=== PATIENT | male | born 1935 | race Caucasian/White ===

== ENCOUNTER 2018-09-13 16:33 | Inpatient (IN) | payer MEDICARE ==
[2018-09-13] MEDS ORDERED: FUROSEMIDE 10 MG/ML 4 ML VIAL IV STA (16:55)
[2018-09-13] MEDS ORDERED: IPRATROPIUM-ALBUTEROL 3 ML NEB INHALATION STA (16:55)
--- NOTE | 2018-09-13 17:00 | ED ---
SOB HPI - General Chief Complaint: Shortness of Breath Stated Complaint: SOB/leg swelling Time Seen by Provider: 09/13/18 16:45 Source: patient, RN notes reviewed Mode of arrival: wheelchair Limitations: no limitations - History of Present Illness Initial Comments: This is a 82-year-old male with a history of CHF who states she's had progressively worsening shortness of breath and exertional dyspnea over last 3 days. No overt chest pain fevers chills nausea vomiting sweats or other symptoms he has had increased peripheral edema to both lower extremities also. 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 MD Complaint: shortness of breath - Related Data Home Medications Medication Instructions Recorded Confirmed Clopidogrel Bisulfate [Clopidogrel] 75 mg PO DAILY 03/03/14 09/13/18 Furosemide 40 mg PO BID 03/03/14 09/13/18 Insulin NPL/Insulin Lispro 25 units SQ AC-SUPPER 03/03/14 09/13/18 [humaLOG MIX 75-25 VIAL] Insulin NPL/Insulin Lispro 30 unit SQ AC-BRKFST 03/03/14 09/13/18 [humaLOG MIX 75-25 VIAL] Lisinopril 20 mg PO BID 03/03/14 09/13/18 amLODIPine 5 mg PO BID 03/03/14 09/13/18 metFORMIN HCL [Glucophage] 500 mg PO BID 03/03/14 09/13/18 Atorvastatin [Lipitor] 40 mg PO DAILY 09/13/18 09/13/18 INSULIN LISPRO (humaLOG) [humaLOG] 0 units SQ ACHS 09/13/18 09/13/18 Metoprolol Tartrate [Lopressor] 100 mg PO DAILY 09/13/18 09/13/18 [place]-3 Fatty Acids/Fish Oil [Fish 1,000 mg PO DAILY 09/13/18 09/13/18 Oil 1,000 mg Softgel] Previous Rx's Medication Instructions Recorded Aspirin EC [Ecotrin] 325 mg PO DAILY #30 tablet. 03/06/14 Multivitamins, Thera [Multivitamin 1 each PO DAILY@1200 #30 tab 03/06/14 (formulary)] Allergies Allergy/AdvReac Type Severity Reaction Status Date / Time Sulfa (Sulfonamide Allergy Unknown Verified 09/13/18 17:16 Antibiotics) Review of Systems ROS Statement: Those systems with pertinent positive or pertinent negative responses have been documented in the HPI. ROS Other: All systems not noted in ROS Statement are negative. 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 Last Myocardial Infarction Date:: 2011 History of Any Multi-Drug Resistant Organisms: None Reported Past Surgical History: Coronary Bypass/CABG, Heart Catheterization Past Anesthesia/Blood Transfusion Reactions: No Reported Reaction Past Psychological History: No Psychological Hx Reported Smoking Status: Former smoker Past Alcohol Use History: None Reported Past Drug Use History: None Reported - Past Family History Mother Family Medical History: Cancer Additional Family Medical History / Comment(s): of ovarian Cancer General Exam - General Exam Comments Initial Comments: This is a well-developed well-nourished awake alert oriented times 3 male Limitations: no limitations General appearance: alert, anxious, in distress Head exam: Present: atraumatic, normocephalic, normal inspection Eye exam: Present: normal appearance, PERRL, EOMI. Absent: scleral icterus, conjunctival injection, periorbital swelling ENT exam: Present: normal exam, mucous membranes moist Neck exam: Present: normal inspection. Absent: tenderness, meningismus, lymphadenopathy Respiratory exam: Present: rales, decreased breath sounds. Absent: respiratory distress, wheezes, rhonchi, stridor Cardiovascular Exam: Present: regular rate, normal rhythm, normal heart sounds. Absent: systolic murmur, diastolic murmur, rubs, gallop, clicks GI/Abdominal exam: Present: soft, normal bowel sounds, other (Obese abdomen). Absent: distended, tenderness, guarding, rebound, rigid Extremities exam: Present: full ROM, normal capillary refill, pedal edema, other (Evidence of stasis changes). Absent: tenderness, joint swelling, calf tenderness Back exam: Present: normal inspection Neurological exam: Present: alert, oriented X3, CN II-XII intact, motor sensory deficit (Right-sided headache leave degenerative the upper extremity and hemiparesis to the right lower extremity.) Psychiatric exam: Present: normal affect, normal mood Skin exam: Present: warm, dry, intact, normal color. Absent: rash Course Vital Signs 09/13/18 09/13/18 09/13/18 16:37 17:18 17:27 Temperature 98.5 F Pulse Rate 59 L 56 L 56 L Respiratory 18 Rate Blood Pressure 159/79 O2 Sat by Pulse 89 L Oximetry - Reevaluation(s) Reevaluation #1: 09/13/18 19:19 I did reevaluate patient several occasions he has no improvement thus far and is breathing he still has marked exertional dyspnea. He reports no chest pain. Reevaluation #2: 09/13/18 19:20 Cardiac monitoring: traffic monitor specialist indication history of atrial fibrillation with evidence of congestive failure to rule out dysrhythmia. Patient does demonstrate atrial fibrillation which is known to him. No PVCs noted. Medical Decision Making - Lab Data Result diagrams: 09/13/18 17:40 09/13/18 17:40 Lab Results 09/13/18 09/13/18 09/13/18 Range/Units 17:40 17:40 17:40 WBC 10.8 H (3.8-10.6) k/uL RBC 6.15 H (4.30-5.90) m/uL Hgb 17.6 H (13.0-17.5) gm/dL Hct 52.8 (39.0-53.0) % MCV 85.8 (80.0-100.0) fL MCH 28.6 (25.0-35.0) pg MCHC 33.4 (31.0-37.0) g/dL RDW 15.5 (11.5-15.5) % Plt Count 261 (150-450) k/uL Neutrophils % 66 % Lymphocytes % 23 % Monocytes % 7 % Eosinophils % 2 % Basophils % 1 % Neutrophils # 7.1 (1.3-7.7) k/uL Lymphocytes # 2.5 (1.0-4.8) k/uL Monocytes # 0.8 (0-1.0) k/uL Eosinophils # 0.2 (0-0.7) k/uL Basophils # 0.1 (0-0.2) k/uL PT 10.3 (9.0-12.0) sec INR 1.0 (<1.2) APTT 23.6 (22.0-30.0) sec Sodium 138 (137-145) mmol/L Potassium 4.8 (3.5-5.1) mmol/L Chloride 100 (98-107) mmol/L Carbon Dioxide 28 (22-30) mmol/L Anion Gap 10 mmol/L BUN 34 H (9-20) mg/dL Creatinine 1.52 H (0.66-1.25) mg/dL Est GFR (CKD-EPI)AfAm 50 (>60 ml/min/1.73 sqM) Est GFR (CKD-EPI)NonAf 43 (>60 ml/min/1.73 sqM) Glucose 252 H (74-99) mg/dL Calcium 9.0 (8.4-10.2) mg/dL Magnesium 2.0 (1.6-2.3) mg/dL Total Bilirubin 0.7 (0.2-1.3) mg/dL AST 15 L (17-59) U/L ALT 30 (21-72) U/L Alkaline Phosphatase 56 (38-126) U/L Troponin I (0.000-0.034) ng/mL NT-Pro-B Natriuret Pep pg/mL Total Protein 6.9 (6.3-8.2) g/dL Albumin 3.8 (3.5-5.0) g/dL 09/13/18 09/13/18 Range/Units 17:40 17:40 WBC (3.8-10.6) k/uL RBC (4.30-5.90) m/uL Hgb (13.0-17.5) gm/dL Hct (39.0-53.0) % MCV (80.0-100.0) fL MCH (25.0-35.0) pg MCHC (31.0-37.0) g/dL RDW (11.5-15.5) % Plt Count (150-450) k/uL Neutrophils % % Lymphocytes % % Monocytes % % Eosinophils % % Basophils % % Neutrophils # (1.3-7.7) k/uL Lymphocytes # (1.0-4.8) k/uL Monocytes # (0-1.0) k/uL Eosinophils # (0-0.7) k/uL Basophils # (0-0.2) k/uL PT (9.0-12.0) sec INR (<1.2) APTT (22.0-30.0) sec Sodium (137-145) mmol/L Potassium (3.5-5.1) mmol/L Chloride (98-107) mmol/L Carbon Dioxide (22-30) mmol/L Anion Gap mmol/L BUN (9-20) mg/dL Creatinine (0.66-1.25) mg/dL Est GFR (CKD-EPI)AfAm (>60 ml/min/1.73 sqM) Est GFR (CKD-EPI)NonAf (>60 ml/min/1.73 sqM) Glucose (74-99) mg/dL Calcium (8.4-10.2) mg/dL Magnesium (1.6-2.3) mg/dL Total Bilirubin (0.2-1.3) mg/dL AST (17-59) U/L ALT (21-72) U/L Alkaline Phosphatase (38-126) U/L Troponin I <0.012 (0.000-0.034) ng/mL NT-Pro-B Natriuret Pep 2950 pg/mL Total Protein (6.3-8.2) g/dL Albumin (3.5-5.0) g/dL - EKG Data -: EKG Interpreted by Me (Atrial fibrillation rate of 62 QRS 146 QT since QTC 470/45) bundle-branch b) - Radiology Data Radiology results: report reviewed (Review the imaging shows evidence of congestive failure with increased pulmonary vascular markings.), image reviewed Critical Care Time Critical Care Time: Yes Critical Care Time: 33 minutes of critical care time which includes initial presentation with history physical labs x-rays multiple reevaluation patient responsive therapy. Discussed with patient family regarding findings discussion with the admitting physician Dr. Feliciano admission orders documentation of the above. Disposition Clinical Impression: Pulmonary edema cardiac cause, Hypoxemia, Renal insufficiency syndrome, Chronic atrial fibrillation Disposition: ADMITTED IP TO THIS [facility] Condition: Fair Referrals: Carlos Alberto Feliciano MD [Primary Care Provider] - 1-2 days
[2018-09-13 18:12] LABS: Albumin 3.8 g/dL (3.5-5.0); Potassium 4.8 mmol/L (3.5-5.1); Total Bilirubin 0.7 mg/dL (0.2-1.3); Total Protein 6.9 g/dL (6.3-8.2)
[2018-09-13 18:20] LABS: Partial Thromboplastin Time 23.6 sec (22.0-30.0); Prothrombin Time 10.3 sec (9.0-12.0)
--- NOTE | 2018-09-13 18:22 | XR ---
EXAMINATION TYPE: XR chest 2V DATE OF EXAM: 09/13/2018 COMPARISON: 03/03/2014 HISTORY: Difficulty breathing TECHNIQUE: Frontal and lateral views of the chest are obtained. FINDINGS: There are sternal wires. There is blunting of the costophrenic angles. There are chest candice ds. Thoracic aorta is atheromatous. There is mild pulmonary congestion. IMPRESSION: There is evidence of new mild heart failure compared to old exam. Bilateral basilar atel ectasis and pleural fluid.
[2018-09-13 19:02] LABS: Basophils # (A) 0.1 k/uL (0-0.2); Basophils % (A) 1 %; Eosinophils # (A) 0.2 k/uL (0-0.7); Eosinophils % (A) 2 %; HCT 52.8 % (39.0-53.0); HGB 17.6 gm/dL (13.0-17.5); Lymphocytes # (A) 2.5 k/uL (1.0-4.8); Lymphocytes % (A) 23 %; MCH 28.6 pg (25.0-35.0); MCHC 33.4 g/dL (31.0-37.0); MCV 85.8 fL (80.0-100.0); Mean Platelet Volume 7.9; Monocytes # (A) 0.8 k/uL (0-1.0); Monocytes % (A) 7 %; Neutrophils # (A) 7.1 k/uL (1.3-7.7); Neutrophils % (A) 66 %; Platelet Count 261 k/uL (150-450); RBC 6.15 m/uL (4.30-5.90); RDW 15.5 % (11.5-15.5); WBC 10.8 k/uL (3.8-10.6)
--- NOTE | 2018-09-13 19:27 | ED ---
Medical Decision Making - Lab Data Result diagrams: 09/13/18 17:40 09/13/18 17:40 Lab Results 09/13/18 09/13/18 09/13/18 Range/Units 17:40 17:40 17:40 WBC 10.8 H (3.8-10.6) k/uL RBC 6.15 H (4.30-5.90) m/uL Hgb 17.6 H (13.0-17.5) gm/dL Hct 52.8 (39.0-53.0) % MCV 85.8 (80.0-100.0) fL MCH 28.6 (25.0-35.0) pg MCHC 33.4 (31.0-37.0) g/dL RDW 15.5 (11.5-15.5) % Plt Count 261 (150-450) k/uL Neutrophils % 66 % Lymphocytes % 23 % Monocytes % 7 % Eosinophils % 2 % Basophils % 1 % Neutrophils # 7.1 (1.3-7.7) k/uL Lymphocytes # 2.5 (1.0-4.8) k/uL Monocytes # 0.8 (0-1.0) k/uL Eosinophils # 0.2 (0-0.7) k/uL Basophils # 0.1 (0-0.2) k/uL PT 10.3 (9.0-12.0) sec INR 1.0 (<1.2) APTT 23.6 (22.0-30.0) sec Sodium 138 (137-145) mmol/L Potassium 4.8 (3.5-5.1) mmol/L Chloride 100 (98-107) mmol/L Carbon Dioxide 28 (22-30) mmol/L Anion Gap 10 mmol/L BUN 34 H (9-20) mg/dL Creatinine 1.52 H (0.66-1.25) mg/dL Est GFR (CKD-EPI)AfAm 50 (>60 ml/min/1.73 sqM) Est GFR (CKD-EPI)NonAf 43 (>60 ml/min/1.73 sqM) Glucose 252 H (74-99) mg/dL Calcium 9.0 (8.4-10.2) mg/dL Magnesium 2.0 (1.6-2.3) mg/dL Total Bilirubin 0.7 (0.2-1.3) mg/dL AST 15 L (17-59) U/L ALT 30 (21-72) U/L Alkaline Phosphatase 56 (38-126) U/L Troponin I (0.000-0.034) ng/mL NT-Pro-B Natriuret Pep pg/mL Total Protein 6.9 (6.3-8.2) g/dL Albumin 3.8 (3.5-5.0) g/dL 09/13/18 09/13/18 Range/Units 17:40 17:40 WBC (3.8-10.6) k/uL RBC (4.30-5.90) m/uL Hgb (13.0-17.5) gm/dL Hct (39.0-53.0) % MCV (80.0-100.0) fL MCH (25.0-35.0) pg MCHC (31.0-37.0) g/dL RDW (11.5-15.5) % Plt Count (150-450) k/uL Neutrophils % % Lymphocytes % % Monocytes % % Eosinophils % % Basophils % % Neutrophils # (1.3-7.7) k/uL Lymphocytes # (1.0-4.8) k/uL Monocytes # (0-1.0) k/uL Eosinophils # (0-0.7) k/uL Basophils # (0-0.2) k/uL PT (9.0-12.0) sec INR (<1.2) APTT (22.0-30.0) sec Sodium (137-145) mmol/L Potassium (3.5-5.1) mmol/L Chloride (98-107) mmol/L Carbon Dioxide (22-30) mmol/L Anion Gap mmol/L BUN (9-20) mg/dL Creatinine (0.66-1.25) mg/dL Est GFR (CKD-EPI)AfAm (>60 ml/min/1.73 sqM) Est GFR (CKD-EPI)NonAf (>60 ml/min/1.73 sqM) Glucose (74-99) mg/dL Calcium (8.4-10.2) mg/dL Magnesium (1.6-2.3) mg/dL Total Bilirubin (0.2-1.3) mg/dL AST (17-59) U/L ALT (21-72) U/L Alkaline Phosphatase (38-126) U/L Troponin I <0.012 (0.000-0.034) ng/mL NT-Pro-B Natriuret Pep 2950 pg/mL Total Protein (6.3-8.2) g/dL Albumin (3.5-5.0) g/dL Disposition Clinical Impression: Pulmonary edema cardiac cause, Hypoxemia, Renal insufficiency syndrome, Chronic atrial fibrillation, Acute bronchospasm Disposition: ADMITTED IP TO THIS HOSP Condition: Fair Referrals: Carlos Alberto Feliciano MD [Primary Care Provider] - 1-2 days
[2018-09-13] MEDS: FUROSEMIDE 10 MG/ML 4 ML VIAL IV SCH (19:39)
[2018-09-13] MEDS ORDERED: IPRATROPIUM-ALBUTEROL 3 ML NEB INHALATION SCH (20:00)
[2018-09-13] MEDS ORDERED: FUROSEMIDE 40 MG TAB PO SCH (21:00)
[2018-09-13] MEDS: IPRATROPIUM-ALBUTEROL 3 ML NEB INHALATION SCH (22:12)
[2018-09-13] MEDS ORDERED: IPRATROPIUM-ALBUTEROL 3 ML NEB INHALATION PRN (22:13)
[2018-09-13] MEDS: LISINOPRIL 20 MG TAB PO SCH (22:34)
[2018-09-13] MEDS: amLODIPine 5 MG TAB PO SCH (22:34)
[2018-09-13] MEDS: INSULIN ASPART (NovoLOG) 100 UNIT/ML VIAL SQ SCH (22:57)
[2018-09-13 23:03] LABS: Glucose,Whole Blood 178 mg/dL (75-99)
[2018-09-14] MEDS ORDERED: HEPARIN SODIUM,PORCINE 5,000 UNIT/ML 1 ML VIAL IV PRN (01:00)
[2018-09-14] MEDS ORDERED: HEPARIN SODIUM,PORCINE 5,000 UNIT/ML 1 ML VIAL IV ONE (01:00)
[2018-09-14 01:33] LABS: Basophils % (A) 0 %; Eosinophils # (A) 0.1 k/uL (0-0.7); Eosinophils % (A) 1 %; HCT 45.4 % (39.0-53.0); Lymphocytes # (A) 1.9 k/uL (1.0-4.8); Lymphocytes % (A) 20 %; MCH 27.1 pg (25.0-35.0); MCHC 31.2 g/dL (31.0-37.0); MCV 86.8 fL (80.0-100.0); Mean Platelet Volume 7.5; Monocytes # (A) 0.6 k/uL (0-1.0); Monocytes % (A) 6 %; Neutrophils # (A) 6.9 k/uL (1.3-7.7); Neutrophils % (A) 72 %; Platelet Count 212 k/uL (150-450); RBC 5.23 m/uL (4.30-5.90); RDW 14.8 % (11.5-15.5); WBC 9.6 k/uL (3.8-10.6)
[2018-09-14 01:35] LABS: HGB 14.1 gm/dL (13.0-17.5)
[2018-09-14 01:42] LABS: Partial Thromboplastin Time 23.9 sec (22.0-30.0); Prothrombin Time 10.4 sec (9.0-12.0)
[2018-09-14] MEDS: HEPARIN SOD,PORK IN 0.45% NACL 25,000 UNIT in 0.45% NACL 1 250ML.BAG IV SCH (02:05)
[2018-09-14 05:58] LABS: Glucose,Whole Blood 184 mg/dL (75-99)
[2018-09-14] MEDS: FUROSEMIDE 10 MG/ML 4 ML VIAL IV SCH ×2 (06:38→20:36)
[2018-09-14] MEDS: INSULIN ASPART (NovoLOG) 100 UNIT/ML VIAL SQ SCH ×4 (06:38→20:31)
[2018-09-14 06:53] LABS: Basophils % (A) 0 %; Eosinophils # (A) 0.1 k/uL (0-0.7); Eosinophils % (A) 1 %; HGB 13.9 gm/dL (13.0-17.5); Lymphocytes # (A) 2.2 k/uL (1.0-4.8); Lymphocytes % (A) 22 %; MCH 27.5 pg (25.0-35.0); MCHC 31.6 g/dL (31.0-37.0); MCV 86.9 fL (80.0-100.0); Mean Platelet Volume 7.7; Monocytes # (A) 0.7 k/uL (0-1.0); Monocytes % (A) 7 %; Neutrophils # (A) 6.7 k/uL (1.3-7.7); Neutrophils % (A) 67 %; Platelet Count 189 k/uL (150-450); RBC 5.07 m/uL (4.30-5.90); RDW 14.8 % (11.5-15.5)
[2018-09-14 07:11] LABS: Partial Thromboplastin Time 28.1 sec (22.0-30.0); Prothrombin Time 10.5 sec (9.0-12.0)
[2018-09-14] MEDS: metFORMIN 500 MG TAB PO SCH ×2 (07:30→17:08)
[2018-09-14] MEDS: INSULN ASP PRT/INSULIN ASPART 100 UNIT/ML 10 ML VIAL SQ SCH ×2 (07:30→17:08)
[2018-09-14] MEDS: METOPROLOL TARTRATE 50 MG TAB PO SCH (07:55)
[2018-09-14] MEDS: ATORVASTATIN 40 MG TAB PO SCH (07:55)
[2018-09-14] MEDS: MULTIVITAMINS, THERA 1 EACH TAB PO SCH (07:55)
[2018-09-14] MEDS: CLOPIDOGREL 75 MG TAB PO SCH (07:56)
[2018-09-14] MEDS: ASPIRIN 325 MG TAB PO SCH (07:56)
[2018-09-14] MEDS: amLODIPine 5 MG TAB PO SCH ×2 (07:56→20:36)
[2018-09-14] MEDS: LISINOPRIL 20 MG TAB PO SCH ×2 (07:56→20:36)
[2018-09-14] MEDS ORDERED: NON-FORMULARY DRUG (Omega-3 Fatty Acids/Fish Oil [Fish Oil 1,000 Mg Softgel] 1,000 MG) PO SCH (09:00)
[2018-09-14] MEDS: IPRATROPIUM-ALBUTEROL 3 ML NEB INHALATION SCH ×4 (09:12→21:02)
--- NOTE | 2018-09-14 11:39 | P.HPIM ---
History of Present Illness 82-year-old male was brought to the emergency room per family with complaints of increasing shortness of breath and peripheral edema patient was found to be in atrial fibrillation this is new from records from primary care physician. Patient does have a history of coronary disease with CABG. Patient has had CVA with right-sided weakness to arm and leg unable to ambulate uses wheelchair. 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 Last Myocardial Infarction Date:: 2011 History of Any Multi-Drug Resistant Organisms: None Reported Past Surgical History: Coronary Bypass/CABG, Heart Catheterization Past Anesthesia/Blood Transfusion Reactions: No Reported Reaction Past Psychological History: No Psychological Hx Reported Smoking Status: Former smoker Past Alcohol Use History: None Reported Past Drug Use History: None Reported - Past Family History Mother Family Medical History: Cancer Additional Family Medical History / Comment(s): of ovarian Cancer Medications and Allergies Home Medications Medication Instructions Recorded Confirmed Type Clopidogrel Bisulfate [Clopidogrel] 75 mg PO DAILY 03/03/14 09/13/18 History Furosemide 40 mg PO BID 03/03/14 09/13/18 History Insulin NPL/Insulin Lispro 25 units SQ AC-SUPPER 03/03/14 09/13/18 History [humaLOG MIX 75-25 VIAL] Insulin NPL/Insulin Lispro 30 unit SQ AC-BRKFST 03/03/14 09/13/18 History [humaLOG MIX 75-25 VIAL] Lisinopril 20 mg PO BID 03/03/14 09/13/18 History amLODIPine 5 mg PO BID 03/03/14 09/13/18 History metFORMIN HCL [Glucophage] 500 mg PO BID 03/03/14 09/13/18 History Aspirin EC [Ecotrin] 325 mg PO DAILY #30 tablet. 03/06/14 09/13/18 Rx Multivitamins, Thera [Multivitamin 1 each PO DAILY@1200 #30 tab 03/06/14 09/13/18 Rx (formulary)] Atorvastatin [Lipitor] 40 mg PO DAILY 09/13/18 09/13/18 History INSULIN LISPRO (humaLOG) [humaLOG] 0 units SQ ACHS 09/13/18 09/13/18 History Metoprolol Tartrate [Lopressor] 100 mg PO DAILY 09/13/18 09/13/18 History [place]-3 Fatty Acids/Fish Oil [Fish 1,000 mg PO DAILY 09/13/18 09/13/18 History Oil 1,000 mg Softgel] Allergies Allergy/AdvReac Type Severity Reaction Status Date / Time Sulfa (Sulfonamide Allergy Unknown Verified 09/13/18 17:16 Antibiotics) Physical Exam Vitals: Vital Signs Temp Pulse Pulse Resp BP BP Pulse Ox 09/14/18 09:22 60 09/14/18 09:12 64 09/14/18 08:00 98.4 F 69 18 143/73 91 L 09/14/18 05:50 67 20 141/67 93 L 09/14/18 04:00 63 20 09/14/18 00:45 62 20 09/13/18 23:30 98.1 F 71 20 144/77 09/13/18 23:00 98.0 F 76 18 141/88 09/13/18 22:30 60 20 144/93 92 L 09/13/18 22:00 62 18 152/90 91 L 09/13/18 21:42 97.9 F 62 18 156/79 92 L 09/13/18 21:30 66 18 150/92 92 L 09/13/18 21:00 97.8 F 66 18 153/81 09/13/18 20:47 88 09/13/18 20:40 68 153/81 92 L 09/13/18 20:30 66 153/81 09/13/18 20:20 61 153/81 93 L 09/13/18 20:10 57 L 153/81 09/13/18 20:00 59 L 20 151/80 94 L 09/13/18 19:55 64 09/13/18 19:50 65 151/80 09/13/18 19:49 62 09/13/18 19:41 98 F 55 L 22 151/80 95 09/13/18 19:40 98.6 F 56 L 20 151/80 93 L 09/13/18 19:30 52 L 22 151/80 09/13/18 19:20 58 L 151/80 09/13/18 19:10 58 L 151/80 09/13/18 19:00 55 L 21 142/80 09/13/18 18:50 59 L 142/80 09/13/18 18:40 56 L 142/80 89 L 09/13/18 18:30 59 L 20 142/80 92 L 09/13/18 18:20 57 L 142/80 90 L 09/13/18 18:10 56 L 142/80 09/13/18 18:00 57 L 20 154/85 91 L 09/13/18 17:50 62 154/85 91 L 09/13/18 17:40 58 L 154/85 90 L 09/13/18 17:30 62 22 154/85 92 L 09/13/18 17:27 56 L 09/13/18 17:20 64 154/85 92 L 09/13/18 17:18 56 L 09/13/18 17:10 69 154/85 91 L 09/13/18 17:02 87 L 09/13/18 17:00 20 09/13/18 16:37 98.5 F 59 L 18 159/79 89 L Intake and Output 09/13/18 09/14/18 09/14/18 22:59 06:59 14:59 Intake Total 240 Output Total 650 300 700 Balance -650 -300 -460 Intake: Oral 240 Output: Urine 650 300 700 Uretheral ([place]) 650 Other: Voiding Method Indwelling Catheter Indwelling Catheter Weight 122.243 kg 122.2 kg - Constitutional General appearance: mild distress - EENT Eyes: PERRLA ENT: normal oropharynx - Neck Neck: normal ROM - Respiratory Respiratory: bilateral: rales - Cardiovascular Rhythm: irregularly irregular leg Peripheral Edema: bilateral: 2+ - Gastrointestinal General gastrointestinal: soft - Integumentary Integumentary: normal - Neurologic Neurologic: CNII-XII intact - Musculoskeletal Musculoskeletal: right sided weakness - Psychiatric Psychiatric: A&O x's 3, appropriate affect, intact judgment & insight Results CBC & Chem 7: 09/14/18 06:24 09/13/18 17:40 Labs: Abnormal Lab Results - Last 24 Hours (Table) 09/13/18 09/13/18 09/13/18 Range/Units 17:40 17:40 22:51 WBC 10.8 H (3.8-10.6) k/uL RBC 6.15 H (4.30-5.90) m/uL Hgb 17.6 H (13.0-17.5) gm/dL BUN 34 H (9-20) mg/dL Creatinine 1.52 H (0.66-1.25) mg/dL Glucose 252 H (74-99) mg/dL POC Glucose (mg/dL) 178 H (75-99) mg/dL AST 15 L (17-59) U/L 09/14/18 Range/Units 05:57 WBC (3.8-10.6) k/uL RBC (4.30-5.90) m/uL Hgb (13.0-17.5) gm/dL BUN (9-20) mg/dL Creatinine (0.66-1.25) mg/dL Glucose (74-99) mg/dL POC Glucose (mg/dL) 184 H (75-99) mg/dL AST (17-59) U/L Chest x-ray: report reviewed Thrombosis Risk Factor Assmnt - Choose All That Apply Any of the Below Risk Factors Present?: Yes Each Factor Represents 1 point: Heart failure (<1month), Medical pt on bed rest, Obesity (BMI >25), Swollen legs (current) Other Risk Factors: Yes Each Risk Factor Represents 3 Points: Age 75 years or older Other congenital or acquired thrombophilia - If yes, enter type in comment: No Thrombosis Risk Factor Assessment Total Risk Factor Score: 7 Thrombosis Risk Factor Assessment Level: High Risk Assessment and Plan Plan: assessment Acute pulmonary edema with hypoxia Renal insufficiency GFR 43 Hematuria with urinary retention Coronary disease with history of CABG CVA with right-sided weakness Diabetes type 2 Hypertension A. fib new onset Plan Cardiology consultation
[2018-09-14 12:01] LABS: Glucose,Whole Blood 129 mg/dL (75-99)
[2018-09-14 16:36] LABS: Glucose,Whole Blood 177 mg/dL (75-99)
--- NOTE | 2018-09-14 19:17 | ECHOF ---
Referral Reason:CHF MEASUREMENTS -------- HEIGHT: 180.3 cm WEIGHT: 122.0 kg BP: 143/73 RVIDd: 3.1 cm (< 3.3) IVSd: 1.3 cm (0.6 - 1.1) LVIDd: 4.0 cm (3.9 - 5.3) LVPWd: 1.3 cm (0.6 - 1.1) IVSs: 1.5 cm LVIDs: 2.4 cm LVPWs: 1.4 cm LAESV Index (A-L): 28.10 ml/m Ao Diam: 3.8 cm (2.0 - 3.7) AV Cusp: 1.8 cm (1.5 - 2.6) AV maxP.97 mmHg AV meanP.81 mmHg RAP: 5.00 mmHg RVSP: 50.24 mmHg FINDINGS -------- Atrial fibrillation. This was a technically difficult study with suboptimal views. The left ventricular size is normal. There is mild concentric left ventricular hypertrophy. Overa ll left ventricular systolic function is normal with, an EF between 55 - 60 %. The right ventricle is normal in size and function. LA is midly dilated 29-33ml/m2. The right atrium is normal in size. 3 ml of Lumason was utilized for enhancement of images. There is mild aortic valve sclerosis. There is no evidence of aortic regurgitation. There is mild aortic stenosis present. Peak/mean gradient across the Aortic Valve is 17.97mmHg / 9.81mmHg. The mitral valve leaflets are mildly thickened. Moderate mitral annular calcification present. Mi ld mitral regurgitation is present. Mild tricuspid regurgitation present. There is mild pulmonary hypertension. The right ventricular systolic pressure, as measured by Doppler, is 50.24mmHg. The pulmonic valve was not well visualized. The aortic root size is normal. IVC Not well visulized. There is no pericardial effusion. CONCLUSIONS -------- 1. Atrial fibrillation. 2. This was a technically difficult study with suboptimal views. 3. The left ventricular size is normal. 4. There is mild concentric left ventricular hypertrophy. 5. Overall left ventricular systolic function is normal with, an EF between 55 - 60 %. 6. LA is midly dilated 29-33ml/m2. 7. 3 ml of Lumason was utilized for enhancement of images. 8. There is mild aortic valve sclerosis. 9. There is mild aortic stenosis present. 10. Peak/mean gradient across the Aortic Valve is 17.97mmHg / 9.81mmHg. 11. The mitral valve leaflets are mildly thickened. 12. Moderate mitral annular calcification present. 13. Mild mitral regurgitation is present. 14. Mild tricuspid regurgitation present. 15. There is mild pulmonary hypertension. 16. The right ventricular systolic pressure, as measured by Doppler, is 50.24mmHg. 17. The pulmonic valve was not well visualized. 18. The aortic root size is normal. 19. IVC Not well visulized. 20. There is no pericardial effusion. COMPUTER ART INSTRUCTOR: Nazario Friedman RDCS
--- NOTE | 2018-09-14 19:28 | P.CRDCN ---
History of Present Illness History of present illness: This is Dr. Mullins dictating a consult on this patient The patient was interviewed and examined by me IMPRESSION / ASSESSMENT: Patient presenting with heart failure symptoms as shortness of breath and bilateral lower extremity edema Hypertensive heart disease Mild aortic stenosis Persistent atrial fibrillation with a controlled ventricular response Right bundle branch block pattern Chronic kidney disease at least stage III Currently patient has had hematuria and decreased urine output Type 2 diabetes LDL 75 on atorvastatin 40 mg by mouth daily Atrial fibrillation rates are controlled on metoprolol tartrate 100 mg once daily in the morning PLAN: Anticoagulation for stroke prevention. He has not been on anticoagulants. I will discuss this with the primary team and Dr. Feliciano to see this been a prior diagnosis of atrial fibrillation. I would treat with Plavix plus and NOAC did since his creatinine is greater than 1.5 out consider xarelto However at this time the patient has had hematuria and therefore I will hold of HPI Patient presented with worsening shortness of breath and exertional dyspnea for the last 3 days no cough expectoration also experienced bilateral lower extremity edema No chest discomfort Plan comfortably in bed currently on diuretics ROS: No fever chills or rigors, no cough, phlegm or expectoration, no nausea, vomiting or diarrhea, no hematuria, dysuria, no musculoskeletal complaints, no strokes or seizures, no skin lesions. EXAMINATION: Blood pressure 126/67 mmHg pulse rate in the 50s irregular in atrial fibrillation Afebrile Breath sounds are reduced bilaterally Soft ejection systolic murmur of aortic stenosis Abdomen soft nontender Bilateral lower extremity edema noted Right upper extremity weakness right lower extremity weakness REVIEW OF LABS, ECG & MEDICAL DATA Patient has had a history of right-sided weakness CT of the brain in 2013 shows advanced atrophy Brain MRI from 2013 revealed a small area of evolving infarct in the central [place] just left of the midline, 10 mm x 4 mm in size Moderate carotid atherosclerosis noted in May 2017, proximal right ICA 2-D echo in 2017 revealed moderate left ventricular hypertrophy with LV systolic function of 50-55% Mild aortic stenosis This time patient presented with shortness of breath and lower extremity edema for about 3 days Twelve-lead ECG shows atrial fibrillation with right bundle branch block pattern heart rate 62 beats a minute Past history of hypertension type 2 diabetes Takes aspirin and Plavix and 40 mg of atorvastatin Labs reviewed Potassium 4.8 BUN 34 creatinine 1.5 GFR between 40-50 Liver function normal troponin normal ProBNP close to 3000 TSH 1.4 LDL 75 Anticoagulation for stroke prevention indicated. 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 Last Myocardial Infarction Date:: 2011 History of Any Multi-Drug Resistant Organisms: None Reported Past Surgical History: Coronary Bypass/CABG, Heart Catheterization Past Anesthesia/Blood Transfusion Reactions: No Reported Reaction Past Psychological History: No Psychological Hx Reported Smoking Status: Former smoker Past Alcohol Use History: None Reported Past Drug Use History: None Reported - Past Family History Mother Family Medical History: Cancer Additional Family Medical History / Comment(s): of ovarian Cancer Medications and Allergies Home Medications Medication Instructions Recorded Confirmed Type Clopidogrel Bisulfate [Clopidogrel] 75 mg PO DAILY 03/03/14 09/13/18 History Furosemide 40 mg PO BID 03/03/14 09/13/18 History Insulin NPL/Insulin Lispro 25 units SQ AC-SUPPER 03/03/14 09/13/18 History [humaLOG MIX 75-25 VIAL] Insulin NPL/Insulin Lispro 30 unit SQ AC-BRKFST 03/03/14 09/13/18 History [humaLOG MIX 75-25 VIAL] Lisinopril 20 mg PO BID 03/03/14 09/13/18 History amLODIPine 5 mg PO BID 03/03/14 09/13/18 History metFORMIN HCL [Glucophage] 500 mg PO BID 03/03/14 09/13/18 History Aspirin EC [Ecotrin] 325 mg PO DAILY #30 tablet. 03/06/14 09/13/18 Rx Multivitamins, Thera [Multivitamin 1 each PO DAILY@1200 #30 tab 03/06/14 09/13/18 Rx (formulary)] Atorvastatin [Lipitor] 40 mg PO DAILY 09/13/18 09/13/18 History INSULIN LISPRO (humaLOG) [humaLOG] 0 units SQ ACHS 09/13/18 09/13/18 History Metoprolol Tartrate [Lopressor] 100 mg PO DAILY 09/13/18 09/13/18 History [place]-3 Fatty Acids/Fish Oil [Fish 1,000 mg PO DAILY 09/13/18 09/13/18 History Oil 1,000 mg Softgel] Allergies Allergy/AdvReac Type Severity Reaction Status Date / Time Sulfa (Sulfonamide Allergy Unknown Verified 09/13/18 17:16 Antibiotics) Physical Exam Vitals: Vital Signs Temp Pulse Pulse Resp BP BP Pulse Ox 09/14/18 17:31 68 09/14/18 17:20 70 09/14/18 16:00 98.3 F 53 L 18 126/67 91 L 09/14/18 12:52 72 09/14/18 12:42 76 09/14/18 12:00 98.3 F 63 18 131/67 91 L 09/14/18 09:22 60 09/14/18 09:12 64 09/14/18 08:00 98.4 F 69 18 143/73 91 L 09/14/18 05:50 67 20 141/67 93 L 09/14/18 04:00 63 20 09/14/18 00:45 62 20 09/13/18 23:30 98.1 F 71 20 144/77 09/13/18 23:00 98.0 F 76 18 141/88 09/13/18 22:30 60 20 144/93 92 L 09/13/18 22:00 62 18 152/90 91 L 09/13/18 21:42 97.9 F 62 18 156/79 92 L 09/13/18 21:30 66 18 150/92 92 L 09/13/18 21:00 97.8 F 66 18 153/81 09/13/18 20:47 88 09/13/18 20:40 68 153/81 92 L 09/13/18 20:30 66 153/81 09/13/18 20:20 61 153/81 93 L 09/13/18 20:10 57 L 153/81 09/13/18 20:00 59 L 20 151/80 94 L 09/13/18 19:55 64 09/13/18 19:50 65 151/80 09/13/18 19:49 62 09/13/18 19:41 98 F 55 L 22 151/80 95 09/13/18 19:40 98.6 F 56 L 20 151/80 93 L 09/13/18 19:30 52 L 22 151/80 Intake and Output 09/14/18 09/14/18 09/14/18 06:59 14:59 22:59 Intake Total 480 240 Output Total 300 700 200 Balance -300 -220 40 Intake: Oral 480 240 Output: Urine 300 700 200 Other: Voiding Method Indwelling Catheter Indwelling Catheter Indwelling Catheter Weight 122.2 kg 122.2 kg Results 09/14/18 06:24 09/13/18 17:40 Cardiac Enzymes 09/14/18 09/14/18 Range/Units 01:15 06:24 Troponin I 0.014 0.017 (0.000-0.034) ng/mL Coagulation 09/14/18 09/14/18 Range/Units 01:15 06:24 PT 10.4 10.5 (9.0-12.0) sec APTT 23.9 28.1 (22.0-30.0) sec CBC 09/14/18 09/14/18 Range/Units 01:15 06:24 WBC 9.6 10.0 (3.8-10.6) k/uL RBC 5.23 5.07 (4.30-5.90) m/uL Hgb 14.1 D 13.9 (13.0-17.5) gm/dL Hct 45.4 44.0 (39.0-53.0) % Plt Count 212 189 (150-450) k/uL Current Medications Generic Name Dose Route Start Last Admin Trade Name Freq PRN Reason Stop Dose Admin Albuterol/Ipratropium 3 ml 09/13/18 22:00 09/14/18 17:20 Duoneb 0.5 Mg-3 Mg/3 Ml Soln INHALATION 3 ml RT-QID DUNIA Administration Albuterol/Ipratropium 3 ml 09/13/18 22:13 Duoneb 0.5 Mg-3 Mg/3 Ml Soln INHALATION RT-Q2H PRN Shortness Of Breath Or Wheezing Amlodipine Besylate 5 mg 09/13/18 21:00 09/14/18 07:56 Norvasc PO 5 mg BID DUNIA Administration Aspirin 325 mg 09/14/18 09:00 09/14/18 07:56 Aspirin PO 325 mg DAILY DUNIA Administration Atorvastatin Calcium 40 mg 09/14/18 09:00 09/14/18 07:55 Lipitor PO 40 mg DAILY DUNIA Administration Clopidogrel Bisulfate 75 mg 09/14/18 09:00 09/14/18 07:56 Plavix PO 75 mg DAILY DUNIA Administration Furosemide 40 mg 09/13/18 19:30 09/14/18 06:38 Lasix IV 40 mg Q12H DUNIA Administration Heparin Sodium (Porcine) 0 unit 09/14/18 01:00 Heparin IV PER PROTOCOL PRN Low PTT Protocol Heparin Sodium/Sodium Chloride 250 mls @ 10 mls/hr 09/14/18 01:00 09/14/18 02:05 25,000 unit/ Sodium Chloride IV 10 ml/hr .Q24H DUNIA 10 mls/hr Administration Protocol Insulin Aspart 0 unit 09/13/18 21:00 09/14/18 17:08 Novolog SQ 3 unit ACHS DUNIA Administration Protocol Insulin Aspart 25 unit 09/14/18 17:30 09/14/18 17:08 Novolog Mix 70-30 Vial SQ 25 unit AC-SUPPER DUNIA Administration Insulin Aspart 30 unit 09/14/18 07:30 09/14/18 07:30 Novolog Mix 70-30 Vial SQ 30 unit AC-BRKFST DUNIA Administration Lisinopril 20 mg 09/13/18 21:00 09/14/18 07:56 Zestril PO 20 mg BID DUNIA Administration Metformin HCl 500 mg 09/14/18 07:30 09/14/18 17:08 Glucophage PO 500 mg BID-W/MEALS DUNIA Administration Metoprolol Tartrate 100 mg 09/14/18 09:00 09/14/18 07:55 Lopressor PO 100 mg DAILY DUNIA Administration Multivitamins 1 each 09/14/18 12:00 09/14/18 07:55 Theragran PO 1 each DAILY@1200 DUNIA Administration Intake and Output 09/14/18 09/14/18 09/14/18 06:59 14:59 22:59 Intake Total 480 240 Output Total 300 700 200 Balance -300 -220 40 Intake: Oral 480 240 Output: Urine 300 700 200 Other: Voiding Method Indwelling Catheter Indwelling Catheter Indwelling Catheter Weight 122.2 kg 122.2 kg Patient Weight 09/15/18 06:59 Weight 122.2 kg 09/14/18 06:24 09/13/18 17:40
[2018-09-14 20:29] LABS: Glucose,Whole Blood 117 mg/dL (75-99)
[2018-09-15] MEDS: HEPARIN SOD,PORK IN 0.45% NACL 25,000 UNIT in 0.45% NACL 1 250ML.BAG IV SCH (01:22)
[2018-09-15 06:09] LABS: Glucose,Whole Blood 171 mg/dL (75-99)
[2018-09-15] MEDS: INSULIN ASPART (NovoLOG) 100 UNIT/ML VIAL SQ SCH ×4 (06:18→23:47)
[2018-09-15 06:21] LABS: Basophils % (A) 0 %; Eosinophils # (A) 0.2 k/uL (0-0.7); Eosinophils % (A) 2 %; HCT 42.4 % (39.0-53.0); HGB 13.4 gm/dL (13.0-17.5); Lymphocytes # (A) 2.2 k/uL (1.0-4.8); Lymphocytes % (A) 24 %; MCH 27.2 pg (25.0-35.0); MCHC 31.6 g/dL (31.0-37.0); MCV 86.1 fL (80.0-100.0); Mean Platelet Volume 8.7; Monocytes # (A) 0.6 k/uL (0-1.0); Monocytes % (A) 7 %; Neutrophils # (A) 5.9 k/uL (1.3-7.7); Neutrophils % (A) 65 %; Platelet Count 202 k/uL (150-450); RBC 4.92 m/uL (4.30-5.90); RDW 15.1 % (11.5-15.5); WBC 9.1 k/uL (3.8-10.6)
[2018-09-15] MEDS: FUROSEMIDE 10 MG/ML 4 ML VIAL IV SCH ×2 (07:37→18:17)
[2018-09-15] MEDS: metFORMIN 500 MG TAB PO SCH ×2 (07:37→17:52)
[2018-09-15] MEDS: INSULN ASP PRT/INSULIN ASPART 100 UNIT/ML 10 ML VIAL SQ SCH ×2 (07:38→17:50)
[2018-09-15] MEDS: IPRATROPIUM-ALBUTEROL 3 ML NEB INHALATION SCH ×4 (08:47→21:25)
--- NOTE | 2018-09-15 09:02 | CDI ---
Documentation Clarification Form Date: 09/15/2018 8:43:48 AM From: Grace Aguero RN, CCDS Admit Date: 09/13/2018 7:22:00 PM Patient Name: Balaji Garcia Visit Number: [id number] Discharge Date: ATTENTION: The Clinical Documentation Specialists (CDI) and [facility] Coding Staff appreciate your assistance in clarifying documentation. Please respond to the clarification below the line at the bottom and electronically sign. The CDI & [facility] Coding staff will review the response and follow-up if needed. Please note: Queries are made part of the Legal Health Record. If you have any questions, please contact the author of this message via ITS. Dr. Carlos Alberto Feliciano The patient presented with the following shortness of breath, exertional dyspnea over last 3 days. In your H/P you have documented "patient is showing signs of pulmonary edema with shortness of breath, hypoxia and edema to his extremities." History/Risk Factors: CHF, Hypertension, CVA, Former smoker Tobacco use: Former smoker Clinical Indicators: 82-year-old male present with shortness of breath and on ED evaluation he is alert, anxious, in distress. Vital signs: 159/79 59 19 98.5 Pulse oximetry: 89 % RA, 87 % RA 94 % 4/L NC (09/15/18 91 % 4/L NC) Lung/Breathing assessment: Rales, decreased breath sounds Chest x-ray: Evidence of new mild heart failure, bilateral basilar atelectasis and pleural fluid Treatment: Breathing tx Duoneb's Monitor O@ Sat's (Titrate O2) Lasix IV In your professional opinion, can you please clarify if these findings signify one of the following conditions? Acuity Acute Chronic Acute on Chronic Specificity Respiratory Failure (further specify (if known)): With hypercapnia? (pCO2 >50 and pH <7.35) With hypoxia? (pO2 <60 mm Hg or SpO2 <91% on room air) Respiratory Distress Other Diagnosis, please specify Unable to determine (Last Revision: September 2017) MTDD
[2018-09-15] MEDS ORDERED: POLYETHYLENE GLYCOL 3350 17 GM POWD.PACK PO STA (10:09)
[2018-09-15] MEDS: DOCUSATE 100 MG CAP PO SCH ×2 (10:46→20:40)
[2018-09-15] MEDS: ASPIRIN 325 MG TAB PO SCH (10:46)
[2018-09-15] MEDS: CLOPIDOGREL 75 MG TAB PO SCH (10:46)
[2018-09-15] MEDS: ATORVASTATIN 40 MG TAB PO SCH (10:46)
[2018-09-15] MEDS: METOPROLOL TARTRATE 50 MG TAB PO SCH (10:46)
--- NOTE | 2018-09-15 11:34 | P.PN ---
Subjective Patient is resting comfortably in bed. His lower extremity edema is better. He does not appear short of breath. His right side is completely flaccid His blood pressure is 132/71 mmHg he is afebrile 90F pulse rate in the 60s his breathing is nonlabored Breath sounds are reduced bilaterally no rhonchi Heart sounds are irregular with a soft systolic murmur Bilateral lower extremity edema which is improved Labs are reviewed hemoglobin 13.4, BUN 34 creatinine 1.5 to magnesium 2.0 Normal troponins ProBNP close to 3000 Impression Persistent atrial fibrillation with a controlled ventricular response on metoprolol 100 mg daily in the morning Right bundle branch block pattern twelve-lead ECG History of CVA on 2 separate occasions History of moderate carotid atherosclerosis on statins History of hematuria on this admission His LV function is preserved ejection fraction 55-60% Mild aortic stenosis with a gradient of less than 20 mmHg, peak gradient Suggest IV Lasix I would treat this patient with anticoagulation with Plavix +15 mg of xarelto as long as it's cleared by internal medicine from a urologic bleeding standpoint He should be switched to by mouth Lasix in the next 24-48 hours TSH level Objective - Vital Signs Vital signs: Vital Signs Temp 98 F 09/15/18 04:00 Pulse 90 09/15/18 08:56 Resp 18 09/15/18 04:00 BP 132/71 09/15/18 04:00 Pulse Ox 90 L 09/15/18 08:47 Intake & Output 09/14/18 09/15/18 09/15/18 18:59 06:59 18:59 Intake Total 720 240 Output Total 900 550 Balance -180 -550 240 Weight 122.2 kg 122 kg Intake: Oral 720 240 Output: Urine 900 550 Other: Voiding Method Indwelling Catheter Indwelling Catheter - Labs CBC & Chem 7: 09/15/18 05:39 09/13/18 17:40 Labs: Abnormal Lab Results - Last 24 Hours (Table) 09/14/18 09/14/18 09/14/18 Range/Units 11:43 16:34 20:27 POC Glucose (mg/dL) 129 H 177 H 117 H (75-99) mg/dL 09/15/18 Range/Units 06:08 POC Glucose (mg/dL) 171 H (75-99) mg/dL
[2018-09-15 11:40] LABS: Glucose,Whole Blood 185 mg/dL (75-99)
--- NOTE | 2018-09-15 12:29 | FL ---
EXAMINATION TYPE: FL barium swallow w video DATE OF EXAM: 09/15/2018 COMPARISON: NONE HISTORY: Cerebral vascular accident. The patient was evaluated in the lateral projection during real-time fluoroscopy, during ingestion of barium mixed with solids and liquids. No aspiration or laryngeal penetration. See report from [facility]. 1 minute 39 seconds fluoroscopy time, no intraoperative images obtained.
[2018-09-15] MEDS: LISINOPRIL 20 MG TAB PO SCH ×2 (13:08→20:40)
[2018-09-15] MEDS: MULTIVITAMINS, THERA 1 EACH TAB PO SCH (13:08)
[2018-09-15] MEDS: amLODIPine 5 MG TAB PO SCH ×2 (15:46→20:40)
[2018-09-15 16:43] LABS: Glucose,Whole Blood 144 mg/dL (75-99)
[2018-09-15 21:35] LABS: Glucose,Whole Blood 144 mg/dL (75-99)
--- NOTE | 2018-09-15 23:34 | P.PN ---
Subjective Progress Note Date: 09/15/18 Principal diagnosis: Persistent atrial fibrillation. New-onset 82-year-old male was brought to the emergency room per family with complaints of increasing shortness of breath and peripheral edema patient was found to be in atrial fibrillation this is new from records from primary care physician. Patient does have a history of coronary disease with CABG. Patient has had CVA with right-sided weakness to arm and leg unable to ambulate uses wheelchair. Patient is showing signs of of pulmonary edema with shortness of breath hypoxia and edema to lower extremities. 09/15/2018 Patient is still having leg swelling but improved compared to yesterday. No complaints of chest pain nausea worsening shortness of breath. Patient is being continued on IV Lasix. Patient is in atrial fibrillation. Her headache or dizziness or lightheadedness. No complaints of nausea vomiting or abdominal pain. Patient is improving clinically. All other review of systems negative except th e above. Echocardiogram showed normal ejection fraction and mild pulmonary hypertension. Current medications reviewed. Objective - Vital Signs Vital signs: Vital Signs Temp 98.1 F 09/15/18 11:37 Pulse 67 09/15/18 11:37 Resp 20 09/15/18 11:37 BP 124/66 09/15/18 11:37 Pulse Ox 92 L 09/15/18 11:37 Intake & Output 09/14/18 09/15/18 09/15/18 18:59 06:59 18:59 Intake Total 720 240 Output Total 900 550 Balance -180 -550 240 Weight 122.2 kg 122 kg Intake: Oral 720 240 Output: Urine 900 550 Other: Voiding Method Indwelling Catheter Indwelling Catheter - Labs CBC & Chem 7: 09/15/18 05:39 09/13/18 17:40 Labs: Abnormal Lab Results - Last 24 Hours (Table) 09/14/18 09/14/18 09/15/18 Range/Units 16:34 20:27 06:08 POC Glucose (mg/dL) 177 H 117 H 171 H (75-99) mg/dL 09/15/18 Range/Units 11:34 POC Glucose (mg/dL) 185 H (75-99) mg/dL Assessment and Plan Assessment: Persistent atrial fibrillation. New onset. Rate controlled. Hematuria with urinary retention Acute CHF with normal EF. Likely due to A. fib. pulmonary edema with hypoxia Mild pulmonary hypertension Renal insufficiency GFR 43 CK D stage III Mild aortic stenosis History of Coronary disease with history of CABG CVA with right-sided weakness Diabetes type 2 Hypertension Plan: Patient will be continued on IV Lasix. Heart rate is controlled now. Patient still with atrial fibrillation. Cardiology is requested continue with Lasix and new oral anticoagulants with xarelto. Patient did have hematuria but no active bleeding at this time. Urology was consulted for evaluation. Anticoagulation will be started once cleared by urology. Follow-up renal function. Further recommendations based on the clinical course. Prognosis is guarded. Time with Patient: Greater than 30
[2018-09-16 05:47] LABS: Glucose,Whole Blood 128 mg/dL (75-99)
[2018-09-16] MEDS: INSULIN ASPART (NovoLOG) 100 UNIT/ML VIAL SQ SCH ×3 (06:19→17:54)
[2018-09-16] MEDS: FUROSEMIDE 10 MG/ML 4 ML VIAL IV SCH ×2 (06:36→17:35)
[2018-09-16 07:59] LABS: Basophils % (A) 0 %; Eosinophils # (A) 0.1 k/uL (0-0.7); Eosinophils % (A) 1 %; HGB 13.6 gm/dL (13.0-17.5); Lymphocytes # (A) 2.4 k/uL (1.0-4.8); Lymphocytes % (A) 24 %; MCH 28.3 pg (25.0-35.0); MCHC 32.3 g/dL (31.0-37.0); MCV 87.6 fL (80.0-100.0); Mean Platelet Volume 7.9; Monocytes # (A) 0.6 k/uL (0-1.0); Monocytes % (A) 7 %; Neutrophils # (A) 6.5 k/uL (1.3-7.7); Neutrophils % (A) 66 %; Platelet Count 209 k/uL (150-450); RBC 4.79 m/uL (4.30-5.90); RDW 14.6 % (11.5-15.5); WBC 9.9 k/uL (3.8-10.6)
[2018-09-16] MEDS: IPRATROPIUM-ALBUTEROL 3 ML NEB INHALATION SCH ×4 (08:20→21:10)
[2018-09-16 08:28] LABS: Calcium 8.5 mg/dL (8.4-10.2)
[2018-09-16 10:12] LABS: Glucose,Whole Blood 212 mg/dL (75-99)
[2018-09-16] MEDS ORDERED: ONDANSETRON 4 MG/2 ML VIAL IVP PRN (10:31)
[2018-09-16] MEDS ORDERED: FUROSEMIDE 10 MG/ML 2 ML VIAL IV ONE (10:31)
--- NOTE | 2018-09-16 10:33 | P.GSCN ---
History of Present Illness Consult date: 09/16/18 Reason for Consult: Urinary Retention, Hematuria Requesting physician: Óscar Goyal History of present illness: The patient is an 82-year-old white male with an unremarkable urologic history. Specifically, he denies any prior history of UTIs or urolithiasis. Prior to admission, the patient was experiencing some difficulty voiding. He states that his urinary stream was weak, and he experienced hesitancy. He reports nocturia 4. He denies dysuria and hematuria. However, he is now hospitalized with exacerbation of CHF and was found to be in urinary retention. A Carballo catheter was placed, and the initial drainage of urine was clear. However, he was then placed on heparin, and developed gross hematuria. 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 Last Myocardial Infarction Date:: 2011 History of Any Multi-Drug Resistant Organisms: None Reported Past Surgical History: Coronary Bypass/CABG, Heart Catheterization Past Anesthesia/Blood Transfusion Reactions: No Reported Reaction Past Psychological History: No Psychological Hx Reported Smoking Status: Former smoker Past Alcohol Use History: None Reported Past Drug Use History: None Reported - Past Family History Mother Family Medical History: Cancer Additional Family Medical History / Comment(s): of ovarian Cancer Medications and Allergies Home Medications Medication Instructions Recorded Confirmed Type Clopidogrel Bisulfate [Clopidogrel] 75 mg PO DAILY 03/03/14 09/13/18 History Furosemide 40 mg PO BID 03/03/14 09/13/18 History Insulin NPL/Insulin Lispro 25 units SQ AC-SUPPER 03/03/14 09/13/18 History [humaLOG MIX 75-25 VIAL] Insulin NPL/Insulin Lispro 30 unit SQ AC-BRKFST 03/03/14 09/13/18 History [humaLOG MIX 75-25 VIAL] Lisinopril 20 mg PO BID 03/03/14 09/13/18 History amLODIPine 5 mg PO BID 03/03/14 09/13/18 History metFORMIN HCL [Glucophage] 500 mg PO BID 03/03/14 09/13/18 History Aspirin EC [Ecotrin] 325 mg PO DAILY #30 tablet.dr 03/06/14 09/13/18 Rx Multivitamins, Thera [Multivitamin 1 each PO DAILY@1200 #30 tab 03/06/14 09/13/18 Rx (formulary)] Atorvastatin [Lipitor] 40 mg PO DAILY 09/13/18 09/13/18 History INSULIN LISPRO (humaLOG) [humaLOG] 0 units SQ ACHS 09/13/18 09/13/18 History Metoprolol Tartrate [Lopressor] 100 mg PO DAILY 09/13/18 09/13/18 History [place]-3 Fatty Acids/Fish Oil [Fish 1,000 mg PO DAILY 09/13/18 09/13/18 History Oil 1,000 mg Softgel] Allergies Allergy/AdvReac Type Severity Reaction Status Date / Time Sulfa (Sulfonamide Allergy Unknown Verified 09/13/18 17:16 Antibiotics) Surgical - Exam Vital Signs Temp Pulse Resp BP Pulse Ox 98.5 F 59 L 18 159/79 89 L 09/13/18 16:37 09/13/18 16:37 09/13/18 16:37 09/13/18 16:37 09/13/18 16:37 - Respiratory normal respiratory effort - Abdomen Abdomen: soft, non tender, no guarding, no rigid, no rebound - Genitourinary normal penis with no external lesions, testicles non-tender - Rectum Rectum: normal sphincter tone, no masses, other (Prostate mildly enlarged and smooth) - Psychiatric oriented to time, oriented to person, oriented to place, speech is normal, memory intact Results - Labs 09/16/18 06:27 09/16/18 06:27 Abnormal Lab Results - Last 24 Hours (Table) 09/15/18 09/15/18 09/15/18 Range/Units 11:34 16:22 21:21 Sodium (137-145) mmol/L Chloride (98-107) mmol/L BUN (9-20) mg/dL Creatinine (0.66-1.25) mg/dL Glucose (74-99) mg/dL POC Glucose (mg/dL) 185 H 144 H 144 H (75-99) mg/dL 09/16/18 09/16/18 09/16/18 Range/Units 05:46 06:27 10:10 Sodium 135 L (137-145) mmol/L Chloride 97 L (98-107) mmol/L BUN 33 H (9-20) mg/dL Creatinine 1.61 H (0.66-1.25) mg/dL Glucose 142 H (74-99) mg/dL POC Glucose (mg/dL) 128 H 212 H (75-99) mg/dL Diabetes panel 09/16/18 Range/Units 06:27 Sodium 135 L (137-145) mmol/L Potassium 5.0 (3.5-5.1) mmol/L Chloride 97 L (98-107) mmol/L Carbon Dioxide 29 (22-30) mmol/L BUN 33 H (9-20) mg/dL Creatinine 1.61 H (0.66-1.25) mg/dL Glucose 142 H (74-99) mg/dL Calcium 8.5 (8.4-10.2) mg/dL Thyroid panel 09/15/18 Range/Units 05:39 TSH 1.180 (0.465-4.680) mIU/L Calcium panel 09/16/18 Range/Units 06:27 Calcium 8.5 (8.4-10.2) mg/dL Pituitary panel 09/15/18 09/16/18 Range/Units 05:39 06:27 Sodium 135 L (137-145) mmol/L Potassium 5.0 (3.5-5.1) mmol/L Chloride 97 L (98-107) mmol/L Carbon Dioxide 29 (22-30) mmol/L BUN 33 H (9-20) mg/dL Creatinine 1.61 H (0.66-1.25) mg/dL Glucose 142 H (74-99) mg/dL Calcium 8.5 (8.4-10.2) mg/dL TSH 1.180 (0.465-4.680) mIU/L Adrenal panel 09/16/18 Range/Units 06:27 Sodium 135 L (137-145) mmol/L Potassium 5.0 (3.5-5.1) mmol/L Chloride 97 L (98-107) mmol/L Carbon Dioxide 29 (22-30) mmol/L BUN 33 H (9-20) mg/dL Creatinine 1.61 H (0.66-1.25) mg/dL Glucose 142 H (74-99) mg/dL Calcium 8.5 (8.4-10.2) mg/dL Assessment and Plan (1) Urinary retention Current Visit: Yes Status: Acute Code(s): R33.9 - RETENTION OF URINE, UNSPECIFIED SNOMED Code(s): 843672538 (2) Gross hematuria Current Visit: Yes Status: Acute Code(s): R31.0 - GROSS HEMATURIA SNOMED Code(s): 283062076 Plan: I had a lengthy discussion with the patient and his . He has experienced obstructive voiding symptoms consistent with BPH, and has now been found to be in urinary retention. It would be my recommendation that the catheter remain in place for several days to allow the bladder to regain its tone. In the meantime, his constipation should be treated and I have prescribed tamsulosin. The catheter may be removed in several days for a voiding trial. I believe that the hematuria is the result of Carballo catheter placement, bladder decompression, and anticoagulants. The hematuria has resolved, and I do not feel that further evaluation of that is warranted unless it persists. Time with Patient: Greater than 30
--- NOTE | 2018-09-16 11:00 | P.PN ---
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 Follow-up on possible aspiration per attending, chest x-ray HPI Patient is resting in bed but today he is having increased shortness of breath. He did have emesis this morning there is concern for possible aspiration. Portable chest x-ray was ordered. Patient did receive an additional dose of 20 mg IV Lasix. He has had a good urine output. He is complaining of increasing shortness of breath today from yesterday. Weight is down by 12 kg. His lower extremity edema is improving. His right side is completely flaccid. Dr. Kim has cleared starting Xarelto as long as the benefit outweighs risk. Labs are reviewed hemoglobin 13.6, BUN 33 creatinine 1.61 Normal troponins ProBNP close to 3000 TSH 1.180. EXAMINATION: Gen: This is an 82-year-old male. His resting bed appears to have mild dyspnea. Vital signs: Afebrile, heart rate in the 60s to 80s, blood pressure 153/73, pulse ox 98% on 4 L nasal cannula. HEENT: Head is atraumatic, normocephalic. Pupils equal, round. Sclerae is anicteric. NECK: Supple. No JVD. No lymphadenopathy. No thyromegaly. LUNGS: Decreased breath sounds bilaterally. Mild accessory muscle usage.. HEART: Irregular rate and rhythm. Soft systolic murmur. 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 Bowel sounds are present. No masses. No tenderness. Carballo draining mary urine EXTREMITIES: No pedal edema. No calf tenderness. NEUROLOGICAL: Patient is awake, alert and oriented x3. Flaccid right extremities. Nurse practitioner note has been reviewed, I agree with documented findings and plan of care. Patient was seen and examined. Objective - Vital Signs Vital signs: Vital Signs Temp 98.6 F 09/16/18 07:53 Pulse 84 09/16/18 08:28 Resp 18 09/16/18 07:53 BP 153/73 09/16/18 07:53 Pulse Ox 98 09/16/18 07:53 Intake & Output 09/15/18 09/16/18 09/16/18 18:59 06:59 18:59 Intake Total 720 120 240 Output Total 500 1025 Balance 220 -905 240 Weight 110.5 kg Intake: Oral 720 120 240 Output: Urine 500 1025 Other: Voiding Method Indwelling Catheter Indwelling Catheter Indwelling Catheter - Labs CBC & Chem 7: 09/16/18 06:27 09/16/18 06:27 Labs: Abnormal Lab Results - Last 24 Hours (Table) 09/15/18 09/15/18 09/15/18 Range/Units 11:34 16:22 21:21 Sodium (137-145) mmol/L Chloride (98-107) mmol/L BUN (9-20) mg/dL Creatinine (0.66-1.25) mg/dL Glucose (74-99) mg/dL POC Glucose (mg/dL) 185 H 144 H 144 H (75-99) mg/dL 09/16/18 09/16/18 09/16/18 Range/Units 05:46 06:27 10:10 Sodium 135 L (137-145) mmol/L Chloride 97 L (98-107) mmol/L BUN 33 H (9-20) mg/dL Creatinine 1.61 H (0.66-1.25) mg/dL Glucose 142 H (74-99) mg/dL POC Glucose (mg/dL) 128 H 212 H (75-99) mg/dL
[2018-09-16] MEDS: INSULN ASP PRT/INSULIN ASPART 100 UNIT/ML 10 ML VIAL SQ SCH ×2 (11:02→17:51)
[2018-09-16] MEDS: LISINOPRIL 20 MG TAB PO SCH (11:03)
[2018-09-16] MEDS: METOPROLOL TARTRATE 50 MG TAB PO SCH (11:03)
[2018-09-16] MEDS: MULTIVITAMINS, THERA 1 EACH TAB PO SCH (11:03)
[2018-09-16] MEDS: amLODIPine 5 MG TAB PO SCH (11:03)
[2018-09-16] MEDS: CLOPIDOGREL 75 MG TAB PO SCH (11:03)
[2018-09-16] MEDS: metFORMIN 500 MG TAB PO SCH ×2 (11:03→17:53)
[2018-09-16] MEDS: ATORVASTATIN 40 MG TAB PO SCH (11:03)
[2018-09-16] MEDS: ASPIRIN 325 MG TAB PO SCH (11:04)
[2018-09-16] MEDS: DOCUSATE 100 MG CAP PO SCH (11:04)
--- NOTE | 2018-09-16 11:08 | XR ---
EXAMINATION TYPE: XR chest 1V portable DATE OF EXAM: 09/16/2018 HISTORY: Aspiration. REFERENCE: Previous study dated 09/13/2018. FINDINGS: There has been a midline sternotomy. There is improved aeration of the right lung base. Heart size is obscured. I suspect small effusions. There continues be vascular congestion and mild interstitial change. IMPRESSION: 1. IMPROVED AERATION, RIGHT LUNG BASE. 2. CONTINUING CHANGES OF MILD HEART FAILURE.
[2018-09-16 11:36] LABS: Glucose,Whole Blood 200 mg/dL (75-99)
[2018-09-16 16:47] LABS: Glucose,Whole Blood 164 mg/dL (75-99)
[2018-09-16] MEDS: RIVAROXABAN 15 MG TAB PO SCH (17:39)
--- NOTE | 2018-09-16 19:45 | XR ---
EXAMINATION TYPE: XR abdomen 2V DATE OF EXAM: 09/16/2018 COMPARISON: None INDICATION: Suspected obstruction TECHNIQUE: Abdomen is examined in the upright view on multiple projections. Supine views were obtaine d. FINDINGS: There is contrast within the ascending colon. Fecal debris is through the colon. Air-filled stomach i s present. There are some prominent small bowel loops containing air within the midabdomen. Different ial air-fluid levels are not identified. No free air is identified. Findings could be associated with a partial small bowel obstruction. IMPRESSION: 1. Clinical consideration for small bowel obstruction is recommended. Report was called to the floor NOEMI Turner by Dr. Carroll by telephone at the time of interpretation. 2. Moderate fecal retention. A [place] level critical message alert has been initiated for Carlos Alberto Feliciano MD via the [employer] Critical Results System on 09/16/2018 7:41 PM. This message alert has been sent to Carlos Alberto Feliciano MD v ia the preferences provided by the clinician for the receipt of Radiology Critical Findings. Message ID [id number].
[2018-09-16 20:21] LABS: ABG Base Excess 14.8 mmol/L; ABG Oxygen Saturation 89.9 % (94-97); ABG TCO2 44 mmol/L (19-24)
[2018-09-16 20:25] LABS: ABG HCO3 41 mmol/L (21-25); ABG PCO2 85 mmHg (35-45); ABG PO2 59 mmHg (83-108)
[2018-09-16 20:36] LABS: Anisocytosis Slight; Basophils % (A) 0 %; Eosinophils # (A) 0.1 k/uL (0-0.7); Eosinophils % (A) 1 %; HCT 42.7 % (39.0-53.0); HGB 14.1 gm/dL (13.0-17.5); Lymphocytes # (A) 1.4 k/uL (1.0-4.8); Lymphocytes % (A) 17 %; MCH 28.2 pg (25.0-35.0); MCHC 33.1 g/dL (31.0-37.0); MCV 85.3 fL (80.0-100.0); Mean Platelet Volume 9.6; Monocytes # (A) 0.5 k/uL (0-1.0); Monocytes % (A) 6 %; Neutrophils # (A) 6.2 k/uL (1.3-7.7); Neutrophils % (A) 75 %; Platelet Count 212 k/uL (150-450); RDW 16.2 % (11.5-15.5); WBC 8.2 k/uL (3.8-10.6)
[2018-09-16 20:48] LABS: Albumin 3.4 g/dL (3.5-5.0); Potassium 5.2 mmol/L (3.5-5.1); Total Bilirubin 0.7 mg/dL (0.2-1.3); Total Protein 6.4 g/dL (6.3-8.2)
[2018-09-16 21:16] LABS: Glucose,Whole Blood 126 mg/dL (75-99)
--- NOTE | 2018-09-16 21:22 | XR ---
EXAMINATION TYPE: XR chest 1V portable DATE OF EXAM: 09/16/2018 COMPARISON: 09/16/2018 INDICATION: Pulmonary edema TECHNIQUE: Single frontal view of the chest is obtained. FINDINGS: The heart size is normal. The pulmonary vasculature is prominent. Bibasilar infiltrates are present. A small right pleural effusion may be present. There is elevation of the right diaphragm. Sternotomy wires are in the midline. IMPRESSION: 1. Volume overload versus congestive heart failure.
[2018-09-17] MEDS: INSULIN ASPART (NovoLOG) 100 UNIT/ML VIAL SQ SCH ×5 (00:07→20:59)
[2018-09-17] MEDS: amLODIPine 5 MG TAB PO SCH ×3 (00:07→20:59)
[2018-09-17] MEDS: DOCUSATE 100 MG CAP PO SCH ×3 (00:07→20:59)
[2018-09-17] MEDS: LISINOPRIL 20 MG TAB PO SCH ×3 (00:09→20:59)
--- NOTE | 2018-09-17 00:27 | P.PN ---
Subjective Progress Note Date: 09/16/18 Principal diagnosis: Persistent atrial fibrillation. New-onset 82-year-old male was brought to the emergency room per family with complaints of increasing shortness of breath and peripheral edema patient was found to be in atrial fibrillation this is new from records from primary care physician. Patient does have a history of coronary disease with CABG. Patient has had CVA with right-sided weakness to arm and leg unable to ambulate uses wheelchair. Patient is showing signs of of pulmonary edema with shortness of breath hypoxia and edema to lower extremities. 09/15/2018 Patient is still having leg swelling but improved compared to yesterday. No complaints of chest pain nausea worsening shortness of breath. Patient is being continued on IV Lasix. Patient is in atrial fibrillation. Her headache or dizziness or lightheadedness. No complaints of nausea vomiting or abdominal pain. Patient is improving clinically. All other review of systems negative except th e above. Echocardiogram showed normal ejection fraction and mild pulmonary hypertension. 09/16/2018 Patient currently denied any complaints of chest pain or shortness of breath. Patient did have an episode of emesis this morning. Denied any aspiration. Chest x-ray showed clearing of the airspace disease. Patient did have a bowel movement yesterday. Patient is being continued on IV Lasix. Cardiology is following. Patient remained in atrial fibrillation. Hematuria resolved and the Carballo cath. Urology has seen the patient. No acute intervention recommended. Current medications reviewed. Objective - Vital Signs Vital signs: Vital Signs Temp 98.1 F 09/16/18 16:00 Pulse 77 09/16/18 21:24 Resp 18 09/16/18 16:00 BP 168/84 09/16/18 16:00 Pulse Ox 94 L 09/16/18 11:11 Intake & Output 09/16/18 09/16/18 09/17/18 06:59 18:59 06:59 Intake Total 120 720 Output Total 1025 Balance -905 720 Weight 110.5 kg Intake: Oral 120 720 Output: Urine 1025 Other: Voiding Method Indwelling Catheter Indwelling Catheter # Bowel Movements 1 - Exam PHYSICAL EXAMINATION: Patient is lying in the bed comfortably, no acute distress, awake alert and oriented.. HEENT: Normocephalic. Neck is supple. Pupils reactive. Nostrils clear. Oral cavity is moist. Ears reveal no drainage. Neck reveals no JVD, carotid bruits, or thyromegaly. CHEST EXAMINATION: Trachea is central. Symmetrical expansion. Bibasilar diminished air entry.. CARDIAC: Normal S1, S2 with no gallops. No murmurs ABDOMEN: Soft. Bowel sounds present. No organomegaly. No abdominal bruits. Extremities: reveal no edema. No clubbing or cyanosis Neurologically awake, alert, oriented x3 . Right-sided weakness. Dysarthria. Skin: No rash or skin lesions. Psychiatric: Coperative. Nonsuicidal Musculoskeletal: No joint swelling or deformity. Normal range of motion. - Labs CBC & Chem 7: 09/16/18 20:27 09/16/18 20:27 Labs: Abnormal Lab Results - Last 24 Hours (Table) 09/16/18 09/16/18 09/16/18 Range/Units 05:46 06:27 10:10 RDW (11.5-15.5) % ABG pH (7.35-7.45) ABG pCO2 (35-45) mmHg ABG pO2 (83-108) mmHg ABG HCO3 (21-25) mmol/L ABG Total CO2 (19-24) mmol/L ABG O2 Saturation (94-97) % Sodium 135 L (137-145) mmol/L Potassium (3.5-5.1) mmol/L Chloride 97 L (98-107) mmol/L Carbon Dioxide (22-30) mmol/L BUN 33 H (9-20) mg/dL Creatinine 1.61 H (0.66-1.25) mg/dL Glucose 142 H (74-99) mg/dL POC Glucose (mg/dL) 128 H 212 H (75-99) mg/dL AST (17-59) U/L Albumin (3.5-5.0) g/dL 09/16/18 09/16/18 09/16/18 Range/Units 11:24 16:39 20:19 RDW (11.5-15.5) % ABG pH 7.30 L (7.35-7.45) ABG pCO2 85 H* (35-45) mmHg ABG pO2 59 L* (83-108) mmHg ABG HCO3 41 H* (21-25) mmol/L ABG Total CO2 44 H (19-24) mmol/L ABG O2 Saturation 89.9 L (94-97) % Sodium (137-145) mmol/L Potassium (3.5-5.1) mmol/L Chloride (98-107) mmol/L Carbon Dioxide (22-30) mmol/L BUN (9-20) mg/dL Creatinine (0.66-1.25) mg/dL Glucose (74-99) mg/dL POC Glucose (mg/dL) 200 H 164 H (75-99) mg/dL AST (17-59) U/L Albumin (3.5-5.0) g/dL 09/16/18 09/16/18 09/16/18 Range/Units 20:27 20:27 21:14 RDW 16.2 H (11.5-15.5) % ABG pH (7.35-7.45) ABG pCO2 (35-45) mmHg ABG pO2 (83-108) mmHg ABG HCO3 (21-25) mmol/L ABG Total CO2 (19-24) mmol/L ABG O2 Saturation (94-97) % Sodium (137-145) mmol/L Potassium 5.2 H (3.5-5.1) mmol/L Chloride 94 L (98-107) mmol/L Carbon Dioxide 36 H (22-30) mmol/L BUN 40 H (9-20) mg/dL Creatinine 1.77 H (0.66-1.25) mg/dL Glucose 141 H (74-99) mg/dL POC Glucose (mg/dL) 126 H (75-99) mg/dL AST 16 L (17-59) U/L Albumin 3.4 L (3.5-5.0) g/dL Assessment and Plan Assessment: Persistent atrial fibrillation. New onset. Rate controlled. Hematuria with urinary retention. Resolved Acute CHF with normal EF. Likely due to A. fib. pulmonary edema with hypoxemia. Continued on Lasix. Mild pulmonary hypertension Renal insufficiency GFR 43 CK D stage III Mild aortic stenosis History of Coronary disease with history of CABG CVA with right-sided weakness Diabetes type 2 Hypertension Plan: Patient will be continued on IV Lasix. Heart rate is controlled now. Patient still with atrial fibrillation. Cardiology recommends to continue with Lasix and new oral anticoagulants with xarelto. Patient did have hematuria but no active bleeding at this time. Urology was consulted for evaluation. Anticoagulation will be started once cleared by urology. Follow-up renal function. Further recommendations based on the clinical course. Prognosis is guarded. Time with Patient: Greater than 30
[2018-09-17 01:07] LABS: Glucose,Whole Blood 124 mg/dL (75-99)
[2018-09-17] MEDS ORDERED: NALOXONE 0.4 MG/ML 1 ML VIAL IV PRN (01:32)
[2018-09-17] MEDS: SODIUM CHLORIDE 0.9% 1,000 ML IV SCH (02:21)
[2018-09-17 04:34] LABS: Anisocytosis Slight; Basophils % (A) 0 %; Eosinophils # (A) 0.1 k/uL (0-0.7); Eosinophils % (A) 1 %; HCT 42.4 % (39.0-53.0); Lymphocytes # (A) 1.9 k/uL (1.0-4.8); Lymphocytes % (A) 21 %; MCH 28.1 pg (25.0-35.0); MCHC 32.9 g/dL (31.0-37.0); MCV 85.3 fL (80.0-100.0); Mean Platelet Volume 10.6; Monocytes # (A) 0.7 k/uL (0-1.0); Monocytes % (A) 8 %; Neutrophils # (A) 6.4 k/uL (1.3-7.7); Neutrophils % (A) 69 %; Platelet Count 178 k/uL (150-450); RBC 4.97 m/uL (4.30-5.90); RDW 16.1 % (11.5-15.5); WBC 9.3 k/uL (3.8-10.6)
[2018-09-17 04:56] LABS: Calcium 8.7 mg/dL (8.4-10.2); Magnesium 2.1 mg/dL (1.6-2.3); Phosphorus 5.6 mg/dL (2.5-4.5)
[2018-09-17 05:46] LABS: Potassium 5.2 mmol/L (3.5-5.1)
--- NOTE | 2018-09-17 06:10 | XR ---
EXAMINATION TYPE: XR chest 1V DATE OF EXAM: 09/17/2018 HISTORY: chf. REFERENCE: Previous study dated 09/16/2018. FINDINGS: There has been a midline sternotomy. The heart is mildly enlarged. There is vascular congestion and mild edema. There is an enlarging effu monisha on the right. There are some confluent airspace disease the right lung base which may represent confluent edema or pneumonia. IMPRESSION: THERE MAY HAVE BEEN MILD IMPROVEMENT IN PATIENT'S CONGESTIVE HEART FAILURE.
[2018-09-17] MEDS: IPRATROPIUM-ALBUTEROL 3 ML NEB INHALATION SCH ×4 (07:40→19:45)
[2018-09-17] MEDS: INSULN ASP PRT/INSULIN ASPART 100 UNIT/ML 10 ML VIAL SQ SCH ×2 (08:39→16:44)
[2018-09-17] MEDS: TAMSULOSIN 0.4 MG CAP.ER.24H PO SCH (08:42)
[2018-09-17] MEDS: ATORVASTATIN 40 MG TAB PO SCH (08:43)
[2018-09-17] MEDS: METOPROLOL TARTRATE 50 MG TAB PO SCH (08:43)
[2018-09-17] MEDS: CLOPIDOGREL 75 MG TAB PO SCH (08:43)
[2018-09-17] MEDS: metFORMIN 500 MG TAB PO SCH ×2 (08:43→17:26)
[2018-09-17] MEDS ORDERED: FUROSEMIDE 10 MG/ML 4 ML VIAL IV STA (08:45)
--- NOTE | 2018-09-17 09:41 | CONS ---
CONSULTATION This is a consultation, pulmonary critical care. DATE OF SERVICE: September 17, 2018 REASON FOR CONSULTATION: ICU management, CHF. HISTORY OF PRESENT ILLNESS: This is a very pleasant 82-year-old male who was apparently admitted to the hospital on September 13. He apparently came into the emergency room with complaints of increasing shortness of breath, exertional dyspnea, leg swelling, orthopnea and paroxysmal nocturnal dyspnea. The patient was found to have heart failure, was admitted to the floor. Apparently, the patient last night developed worsening symptoms of congestive heart failure. The chest x-ray worsened. The patient apparently had a blood gas done which showed some mildly worsening hypercarbic respiratory failure and some mild hypoxemic respiratory failure and the patient was transferred to the ICU. I did speak to Dr. Moe who was not aware of this patient and did not really add very much to the case. Nonetheless, the patient was admitted to the ICU for further management. We put the patient on Lasix, cut his IV back, put him on updrafts and then also placed him on BiPAP. He was on IPAP of 14, EPAP of 6, at 40%. He is doing much better this morning. His blood gases last night on 5 L showed a PO2 of 59, pCO2 of 85, and a pH of 7.30. These blood gases show acute on chronic hypercapnic respiratory failure. His baseline PaCO2 is probably right around 70-75 mmHg. He does have a history of congestive heart failure and atrial fibrillation. He presented here to the ICU after midnight on September 17. The patient is getting a 0.9 IV at 20 mL an hour and Lasix 40 mg IV push q.12 hours, which we increased to 40 q.8h. The patient's urine output has been okay, but not anything spectacular. He is feeling a bit better this morning. HOME MEDICATIONS: Include Plavix, Lasix, insulin, lisinopril, amlodipine, metformin, Lipitor, metoprolol and fish oil. He is also currently on aspirin, multivitamins. ALLERGIES: ARE SULFA ANTIBIOTICS. MEDICAL HISTORY: CVA/TIA, diabetes mellitus, hypertension, myocardial infarction, and a previous stroke with right-sided weakness. There is no history of any chronic lung disease. He is a nonsmoker essentially. Denies any history of asthma. We believe his chronic hypercarbia likely relates to either sleep apnea syndrome and/or Pickwickian syndrome. PAST SURGICAL HISTORY: Includes bypass grafting and heart catheterization. SOCIAL HISTORY: Positive for minimal tobacco use in the distant past. No alcohol or illicit drug use. FAMILY HISTORY: Positive for ovarian cancer in his mother. REVIEW OF SYSTEMS: CONSTITUTIONAL: Weakness and fatigue, neurologic negative. HEENT negative. Cardiovascular negative. PULMONARY: Shortness of breath. GI negative. : Negative. Rheumatologic negative. Immunologic negative. Endocrinologic negative. Dermatologic negative. PHYSICAL EXAMINATION: Vital signs are reviewed. Temperature is 97.8. Heart rate is 70, respiratory rate 18, blood pressure 146/70, mean 95, and on 3 L he is hovering right around between 88 and 92%. I told the respiratory therapist that this was fine. He could go back on BiPAP if he needs it. He appears in no acute distress. No conversational dyspnea. No use of accessory muscles. HEENT examination is grossly unremarkable. Mucous membranes are moist. Nasal O2 noted. NECK: Supple. Full range of motion. No adenopathy, thyromegaly or neck vein distention. Cardiovascular examination reveals regular rhythm and rate. Heart rate about 70 beats per minute. S1, S2 normal. No murmur noted. Heart sounds are distant. LUNGS: Some bibasilar crackles. There is diffuse coarse rhonchi. Breath sounds equal bilaterally but diminished throughout. ABDOMEN: Obese. Bowel sounds are heard. Extremities are intact. Minimal edema. Skin is without rash. Neurologic examination is essentially nonfocal. LAB DATA: Reviewed. White count 9.3, hemoglobin 14, hematocrit 40.4, platelet count 178,000. Sodium 139, potassium 5.2, chloride 96, CO2 of 34. Anion gap is 9. BUN and creatinine were 43 and 1.69. The rest of the labs are reviewed. The patient's initial N terminal proBNP was nearly 3000. Troponins were less than 0.012 and 0.017. The rest of the labs are reviewed. Chest x-ray is consistent with fluid overload and cardiomegaly. There is bilateral pleural effusions. The chest x-ray today is slightly improved. Medications are reviewed. Lasix was increased. The patient is on updrafts. The rest of the medications appear to be appropriate. ASSESSMENT: 1. Acute on chronic diastolic congestive heart failure with acute exacerbation, requiring BiPAP therapy for worsening oxygenation and worsening hypercapnia. 2. Chronic hypercapnic respiratory failure, likely related to sleep apnea syndrome and/or Pickwickian syndrome. There appears to be no history of any intrinsic lung disease. 3. Obesity. 4. History of diabetes. 5. History of hypertension. 6. History of hyperlipidemia. 7. Previous history of cerebrovascular accident with some right-sided weakness. 8. Previous history of myocardial infarction. 9.Remote minimal tobacco history. PLAN: The patient is going to be diuresed with Lasix 40 mg q.8. The patient will be taken off BiPAP and placed on nasal O2. I told the respiratory therapist that the saturation should be maintained between 88 and 92%. The patient can request to go on the BiPAP at any time. He likely suffers from sleep apnea syndrome and that will need to be evaluated as an outpatient. The patient will likely also have some obesity/hypoventilation syndrome, which should be evaluated. Medications are reviewed. Problem list is reviewed. We will continue to follow. Prognosis is guarded. The patient will stay here in the ICU. SYDNI / ZACARIASN: [id number] / TACOS
--- NOTE | 2018-09-17 11:13 | P.PN ---
Progress Note - Text Progress Note Date: 09/17/18 Mr. Garcia was transferred to the ICU yesterday due to worsening of his congestive heart failure. He was started on Xarelto yesterday, though he threw up shortly after taking it. His Carballo catheter continues to drain clear yellow urine. I cannot predict whether or not the hematuria will recur with anticoagulation. I have ordered a renal ultrasound to rule out upper tract pathology. If he does develop recurrent hematuria, he will require cystoscopy for further evaluation.
--- NOTE | 2018-09-17 11:50 | P.GSCN ---
History of Present Illness Consult date: 09/17/18 History of present illness: 82-year-old male was brought to the emergency room per family with complaints of increasing shortness of breath and peripheral edema patient was found to be in atrial fibrillation. He is being treated by cardiology due to this finding. He also was noted to have a history of stroke and right-sided paralysis. Yesterday, the patient was noted to have multiple episodes of emesis and due to this did have an abdominal x-ray. He was noted to have multiple dilated bowel loops and consideration for bowel obstruction was noted. The patient does not have any history of abdominal surgery. Since yesterday, patient has not had any further emesis episodes. There is no nasogastric tube placed. The patient is currently on BiPAP. He is having flatus and is denying abdominal pain at this time. 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 Last Myocardial Infarction Date:: 2011 History of Any Multi-Drug Resistant Organisms: None Reported Past Surgical History: Coronary Bypass/CABG, Heart Catheterization Past Anesthesia/Blood Transfusion Reactions: No Reported Reaction Past Psychological History: No Psychological Hx Reported Smoking Status: Former smoker Past Alcohol Use History: None Reported Past Drug Use History: None Reported - Past Family History Mother Family Medical History: Cancer Additional Family Medical History / Comment(s): of ovarian Cancer Medications and Allergies Home Medications Medication Instructions Recorded Confirmed Type Clopidogrel Bisulfate [Clopidogrel] 75 mg PO DAILY 03/03/14 09/13/18 History Furosemide 40 mg PO BID 03/03/14 09/13/18 History Insulin NPL/Insulin Lispro 25 units SQ AC-SUPPER 03/03/14 09/13/18 History [humaLOG MIX 75-25 VIAL] Insulin NPL/Insulin Lispro 30 unit SQ AC-BRKFST 03/03/14 09/13/18 History [humaLOG MIX 75-25 VIAL] Lisinopril 20 mg PO BID 03/03/14 09/13/18 History amLODIPine 5 mg PO BID 03/03/14 09/13/18 History metFORMIN HCL [Glucophage] 500 mg PO BID 03/03/14 09/13/18 History Aspirin EC [Ecotrin] 325 mg PO DAILY #30 tablet. 03/06/14 09/13/18 Rx Multivitamins, Thera [Multivitamin 1 each PO DAILY@1200 #30 tab 03/06/14 09/13/18 Rx (formulary)] Atorvastatin [Lipitor] 40 mg PO DAILY 09/13/18 09/13/18 History INSULIN LISPRO (humaLOG) [humaLOG] 0 units SQ ACHS 09/13/18 09/13/18 History Metoprolol Tartrate [Lopressor] 100 mg PO DAILY 09/13/18 09/13/18 History [place]-3 Fatty Acids/Fish Oil [Fish 1,000 mg PO DAILY 09/13/18 09/13/18 History Oil 1,000 mg Softgel] Allergies Allergy/AdvReac Type Severity Reaction Status Date / Time Sulfa (Sulfonamide Allergy Unknown Verified 09/13/18 17:16 Antibiotics) Surgical - Exam Osteopathic Statement: *. No significant issues noted on an osteopathic structural exam other than those noted in the History and Physical/Consult. Vital Signs Temp Pulse Resp BP Pulse Ox 98.5 F 59 L 18 159/79 89 L 09/13/18 16:37 09/13/18 16:37 09/13/18 16:37 09/13/18 16:37 09/13/18 16:37 - General no distress - Eyes PERRL - Neck trachea midline - Respiratory On BiPAP - Abdomen Soft, distended, no rebound, no guarding, nontender - Integumentary no rash, no growths Results - Labs 09/17/18 04:13 09/17/18 04:13 Abnormal Lab Results - Last 24 Hours (Table) 09/16/18 09/16/18 09/16/18 Range/Units 16:39 20:19 20:27 RDW 16.2 H (11.5-15.5) % ABG pH 7.30 L (7.35-7.45) ABG pCO2 85 H* (35-45) mmHg ABG pO2 59 L* (83-108) mmHg ABG HCO3 41 H* (21-25) mmol/L ABG Total CO2 44 H (19-24) mmol/L ABG O2 Saturation 89.9 L (94-97) % Potassium (3.5-5.1) mmol/L Chloride (98-107) mmol/L Carbon Dioxide (22-30) mmol/L BUN (9-20) mg/dL Creatinine (0.66-1.25) mg/dL Glucose (74-99) mg/dL POC Glucose (mg/dL) 164 H (75-99) mg/dL Phosphorus (2.5-4.5) mg/dL AST (17-59) U/L Albumin (3.5-5.0) g/dL 09/16/18 09/16/18 09/17/18 Range/Units 20:27 21:14 01:03 RDW (11.5-15.5) % ABG pH (7.35-7.45) ABG pCO2 (35-45) mmHg ABG pO2 (83-108) mmHg ABG HCO3 (21-25) mmol/L ABG Total CO2 (19-24) mmol/L ABG O2 Saturation (94-97) % Potassium 5.2 H (3.5-5.1) mmol/L Chloride 94 L (98-107) mmol/L Carbon Dioxide 36 H (22-30) mmol/L BUN 40 H (9-20) mg/dL Creatinine 1.77 H (0.66-1.25) mg/dL Glucose 141 H (74-99) mg/dL POC Glucose (mg/dL) 126 H 124 H (75-99) mg/dL Phosphorus (2.5-4.5) mg/dL AST 16 L (17-59) U/L Albumin 3.4 L (3.5-5.0) g/dL 09/17/18 09/17/18 Range/Units 04:13 04:13 RDW 16.1 H (11.5-15.5) % ABG pH (7.35-7.45) ABG pCO2 (35-45) mmHg ABG pO2 (83-108) mmHg ABG HCO3 (21-25) mmol/L ABG Total CO2 (19-24) mmol/L ABG O2 Saturation (94-97) % Potassium 5.2 H (3.5-5.1) mmol/L Chloride 96 L (98-107) mmol/L Carbon Dioxide 34 H (22-30) mmol/L BUN 43 H (9-20) mg/dL Creatinine 1.69 H (0.66-1.25) mg/dL Glucose 112 H (74-99) mg/dL POC Glucose (mg/dL) (75-99) mg/dL Phosphorus 5.6 H (2.5-4.5) mg/dL AST (17-59) U/L Albumin (3.5-5.0) g/dL Diabetes panel 09/16/18 09/17/18 Range/Units 20:27 04:13 Sodium 138 139 (137-145) mmol/L Potassium 5.2 H 5.2 H (3.5-5.1) mmol/L Chloride 94 L 96 L (98-107) mmol/L Carbon Dioxide 36 H 34 H (22-30) mmol/L BUN 40 H 43 H (9-20) mg/dL Creatinine 1.77 H 1.69 H (0.66-1.25) mg/dL Glucose 141 H 112 H (74-99) mg/dL Calcium 9.0 8.7 (8.4-10.2) mg/dL AST 16 L (17-59) U/L ALT 27 (21-72) U/L Alkaline Phosphatase 56 (38-126) U/L Total Protein 6.4 (6.3-8.2) g/dL Albumin 3.4 L (3.5-5.0) g/dL Calcium panel 09/16/18 09/17/18 Range/Units 20:27 04:13 Calcium 9.0 8.7 (8.4-10.2) mg/dL Phosphorus 5.6 H (2.5-4.5) mg/dL Albumin 3.4 L (3.5-5.0) g/dL Pituitary panel 09/16/18 09/17/18 Range/Units 20:27 04:13 Sodium 138 139 (137-145) mmol/L Potassium 5.2 H 5.2 H (3.5-5.1) mmol/L Chloride 94 L 96 L (98-107) mmol/L Carbon Dioxide 36 H 34 H (22-30) mmol/L BUN 40 H 43 H (9-20) mg/dL Creatinine 1.77 H 1.69 H (0.66-1.25) mg/dL Glucose 141 H 112 H (74-99) mg/dL Calcium 9.0 8.7 (8.4-10.2) mg/dL Adrenal panel 09/16/18 09/17/18 Range/Units 20:27 04:13 Sodium 138 139 (137-145) mmol/L Potassium 5.2 H 5.2 H (3.5-5.1) mmol/L Chloride 94 L 96 L (98-107) mmol/L Carbon Dioxide 36 H 34 H (22-30) mmol/L BUN 40 H 43 H (9-20) mg/dL Creatinine 1.77 H 1.69 H (0.66-1.25) mg/dL Glucose 141 H 112 H (74-99) mg/dL Calcium 9.0 8.7 (8.4-10.2) mg/dL Total Bilirubin 0.7 (0.2-1.3) mg/dL AST 16 L (17-59) U/L ALT 27 (21-72) U/L Alkaline Phosphatase 56 (38-126) U/L Total Protein 6.4 (6.3-8.2) g/dL Albumin 3.4 L (3.5-5.0) g/dL Assessment and Plan Plan: 82-year-old male with abdominal distention, ileus - I discussed the case with the patient's family and the patient. It appears that the patient may have an ileus versus a partial small bowel obstruction. The patient does not have any obvious hernia or previous abdominal surgery history to explain obstruction. Due to his multiple medical comorbidities at th is time, he most likely has an ileus. He has having flatus. Due to the fact that the patient is on BiPAP, if he does have any additional emesis episodes, I would recommend a nasogastric tube. However, due to the fact that the patient is currently not having any nausea or emesis we will continue with the current regimen. I will continue to follow the patient and make recommendations throughout his admission.
--- NOTE | 2018-09-17 11:58 | US ---
EXAMINATION TYPE: US kidneys/renal and bladder DATE OF EXAM: 09/17/2018 COMPARISON: Previous study dated 06/16/2015. CLINICAL HISTORY: Hematuria; CHF; AFIB EXAM MEASUREMENTS: Right Kidney: 11.0 x 5.7 x 5.9cm Left Kidney: 11.9 x 6.3 x 6.4 cm Post Void Residual Volume: not assessed as Carballo catheter is present within bladder US exam is technically limited by limited range of motion of ICU patient. Right Kidney: No hydronephrosis or masses seen Left Kidney: No hydronephrosis or masses seen Bladder: Indwelling urinary catheter, round hyperechoic anterior border is noted within. Hyperechoic border within the bladder may be secondary to iatrogenically induced air with catheteriza tion. IMPRESSION: NORMAL RENAL ULTRASOUND.
[2018-09-17 12:08] LABS: Glucose,Whole Blood 156 mg/dL (75-99)
[2018-09-17] MEDS: MULTIVITAMINS, THERA 1 EACH TAB PO SCH (14:48)
[2018-09-17] MEDS: FUROSEMIDE 10 MG/ML 4 ML VIAL IV SCH (16:20)
[2018-09-17 16:55] LABS: Glucose,Whole Blood 197 mg/dL (75-99)
[2018-09-17] MEDS: RIVAROXABAN 15 MG TAB PO SCH (17:26)
[2018-09-17 20:48] LABS: Glucose,Whole Blood 216 mg/dL (75-99)
--- NOTE | 2018-09-17 23:08 | P.PN ---
Subjective Progress Note Date: 09/17/18 Principal diagnosis: Persistent atrial fibrillation. New-onset 82-year-old male was brought to the emergency room per family with complaints of increasing shortness of breath and peripheral edema patient was found to be in atrial fibrillation this is new from records from primary care physician. Patient does have a history of coronary disease with CABG. Patient has had CVA with right-sided weakness to arm and leg unable to ambulate uses wheelchair. Patient is showing signs of of pulmonary edema with shortness of breath hypoxia and edema to lower extremities. 09/15/2018 Patient is still having leg swelling but improved compared to yesterday. No complaints of chest pain nausea worsening shortness of breath. Patient is being continued on IV Lasix. Patient is in atrial fibrillation. Her headache or dizziness or lightheadedness. No complaints of nausea vomiting or abdominal pain. Patient is improving clinically. All other review of systems negative except th e above. Echocardiogram showed normal ejection fraction and mild pulmonary hypertension. 09/16/2018 Patient currently denied any complaints of chest pain or shortness of breath. Patient did have an episode of emesis this morning. Denied any aspiration. Chest x-ray showed clearing of the airspace disease. Patient did have a bowel movement yesterday. Patient is being continued on IV Lasix. Cardiology is following. Patient remained in atrial fibrillation. Hematuria resolved and the Carballo cath. Urology has seen the patient. No acute intervention recommended. 09/17/2018 Patient was transferred to MICU yesterday evening due to worsening shortness of breath and hypoxemic respiratory failure. Patient is currently on BiPAP. Lasix increased to every 8 hours. Cardiology and pulmonary is following. Patient did have an bowel movement and is able to pass flatness. May have ileus versus partial small bowel obstruction which seems to be resolving. No fever no chills. No nausea vomiting or abdominal pain. Patient is otherwise awake alert oriented 3. Family at bedside. Current medications reviewed. Objective - Vital Signs Vital signs: Vital Signs Temp 99.6 F 09/17/18 16:00 Pulse 67 09/17/18 19:00 Resp 20 09/17/18 19:00 BP 114/58 09/17/18 19:00 Pulse Ox 88 L 09/17/18 19:00 Intake & Output 09/17/18 09/17/18 09/18/18 06:59 18:59 06:59 Intake Total 180 220 20 Output Total 530 440 40 Balance -350 -220 -20 Weight 118 kg Intake: IV 120 220 20 Sodium Chloride 0.9% 1, 120 220 20 000 ml @ 20 mls/hr IV . Q24H [facility] Rx#:[id number] Oral 60 Output: Urine 530 440 40 Other: Voiding Method Indwelling Catheter Indwelling Catheter - Exam PHYSICAL EXAMINATION: Patient is lying in the bed comfortably, no acute distress, awake alert and oriented.. HEENT: Normocephalic. Neck is supple. Pupils reactive. Nostrils clear. Oral cavity is moist. Ears reveal no drainage. Neck reveals no JVD, carotid bruits, or thyromegaly. CHEST EXAMINATION: Trachea is central. Symmetrical expansion. Bibasilar diminished air entry.. CARDIAC: Normal S1, S2 with no gallops. No murmurs ABDOMEN: Soft. Bowel sounds present. No organomegaly. No abdominal bruits. Extremities: reveal no edema. No clubbing or cyanosis Neurologically awake, alert, oriented x3 . Right-sided weakness. Dysarthria. Skin: No rash or skin lesions. Psychiatric: Coperative. Nonsuicidal Musculoskeletal: No joint swelling or deformity. Normal range of motion. - Labs CBC & Chem 7: 09/17/18 04:13 09/17/18 04:13 Labs: Abnormal Lab Results - Last 24 Hours (Table) 09/16/18 09/16/18 09/16/18 Range/Units 20:19 20:27 20:27 RDW 16.2 H (11.5-15.5) % ABG pH 7.30 L (7.35-7.45) ABG pCO2 85 H* (35-45) mmHg ABG pO2 59 L* (83-108) mmHg ABG HCO3 41 H* (21-25) mmol/L ABG Total CO2 44 H (19-24) mmol/L ABG O2 Saturation 89.9 L (94-97) % Potassium 5.2 H (3.5-5.1) mmol/L Chloride 94 L (98-107) mmol/L Carbon Dioxide 36 H (22-30) mmol/L BUN 40 H (9-20) mg/dL Creatinine 1.77 H (0.66-1.25) mg/dL Glucose 141 H (74-99) mg/dL POC Glucose (mg/dL) (75-99) mg/dL Phosphorus (2.5-4.5) mg/dL AST 16 L (17-59) U/L Albumin 3.4 L (3.5-5.0) g/dL 09/16/18 09/17/18 09/17/18 Range/Units 21:14 01:03 04:13 RDW 16.1 H (11.5-15.5) % ABG pH (7.35-7.45) ABG pCO2 (35-45) mmHg ABG pO2 (83-108) mmHg ABG HCO3 (21-25) mmol/L ABG Total CO2 (19-24) mmol/L ABG O2 Saturation (94-97) % Potassium (3.5-5.1) mmol/L Chloride (98-107) mmol/L Carbon Dioxide (22-30) mmol/L BUN (9-20) mg/dL Creatinine (0.66-1.25) mg/dL Glucose (74-99) mg/dL POC Glucose (mg/dL) 126 H 124 H (75-99) mg/dL Phosphorus (2.5-4.5) mg/dL AST (17-59) U/L Albumin (3.5-5.0) g/dL 09/17/18 09/17/18 09/17/18 Range/Units 04:13 12:04 16:52 RDW (11.5-15.5) % ABG pH (7.35-7.45) ABG pCO2 (35-45) mmHg ABG pO2 (83-108) mmHg ABG HCO3 (21-25) mmol/L ABG Total CO2 (19-24) mmol/L ABG O2 Saturation (94-97) % Potassium 5.2 H (3.5-5.1) mmol/L Chloride 96 L (98-107) mmol/L Carbon Dioxide 34 H (22-30) mmol/L BUN 43 H (9-20) mg/dL Creatinine 1.69 H (0.66-1.25) mg/dL Glucose 112 H (74-99) mg/dL POC Glucose (mg/dL) 156 H 197 H (75-99) mg/dL Phosphorus 5.6 H (2.5-4.5) mg/dL AST (17-59) U/L Albumin (3.5-5.0) g/dL Microbiology - Last 24 Hours (Table) 09/17/18 02:15 Urine Culture - Preliminary Urine,Catheterized Assessment and Plan Assessment: Persistent atrial fibrillation. New onset. Rate controlled. Hematuria with urinary retention. Resolved Acute CHF with normal EF. Likely due to A. fib. pulmonary edema with hypoxemia. Continued on Lasix. Mild pulmonary hypertension Renal insufficiency GFR 43 CK D stage III Mild aortic stenosis History of Coronary disease with history of CABG CVA with right-sided weakness Diabetes type 2 Hypertension Plan: Patient will be continued on IV Lasix. Heart rate is controlled now. Patient still with atrial fibrillation. Cardiology recommends to continue with Lasix and new oral anticoagulants with xarelto. Patient did have hematuria but no active bleeding at this time. Urology was consulted for evaluation. Anticoagu lation will be started once cleared by urology. Follow-up renal function. Further recommendations based on the clinical course. Prognosis is guarded. Time with Patient: Greater than 30
[2018-09-18] MEDS: FUROSEMIDE 10 MG/ML 4 ML VIAL IV SCH ×2 (01:15→11:14)
[2018-09-18] MEDS: SODIUM CHLORIDE 0.9% 1,000 ML IV SCH (01:17)
[2018-09-18 05:02] LABS: Basophils % (A) 0 %; Eosinophils # (A) 0.1 k/uL (0-0.7); Eosinophils % (A) 1 %; HGB 13.7 gm/dL (13.0-17.5); Lymphocytes # (A) 1.6 k/uL (1.0-4.8); Lymphocytes % (A) 22 %; MCH 28.2 pg (25.0-35.0); MCHC 31.9 g/dL (31.0-37.0); MCV 88.5 fL (80.0-100.0); Mean Platelet Volume 7.2; Monocytes # (A) 0.6 k/uL (0-1.0); Monocytes % (A) 8 %; Neutrophils # (A) 5.1 k/uL (1.3-7.7); Neutrophils % (A) 67 %; Platelet Count 183 k/uL (150-450); RBC 4.86 m/uL (4.30-5.90); RDW 14.1 % (11.5-15.5); WBC 7.6 k/uL (3.8-10.6)
[2018-09-18 06:37] LABS: Calcium 8.4 mg/dL (8.4-10.2); Magnesium 2.1 mg/dL (1.6-2.3)
[2018-09-18 07:26] LABS: Glucose,Whole Blood 230 mg/dL (75-99)
[2018-09-18] MEDS: IPRATROPIUM-ALBUTEROL 3 ML NEB INHALATION SCH ×4 (07:32→19:58)
--- NOTE | 2018-09-18 08:43 | XR ---
EXAMINATION TYPE: XR chest 1V DATE OF EXAM: 09/18/2018 COMPARISON: 09/17/2018 HISTORY: Shortness of breath FINDINGS: Noted is pulmonary venous congestion with scattered infiltrates. There is also cardiomegaly and small effusions. IMPRESSION: Findings compatible with congestive failure. Infiltrates of other etiology are not excluded. Clinical correlation and progress studies are recommended.
--- NOTE | 2018-09-18 09:01 | P.PN ---
Subjective Progress Note Date: 09/18/18 Patient seen and examined at bedside. He is off of BiPAP and is on nasal cannula. He has been passing gas and is unsure if he had a bowel movement earlier this morning. Denies abdominal pain. Tolerated nectar Thick fluids for breakfast without any nausea or vomiting. Objective - Vital Signs Vital signs: Vital Signs Temp 98.2 F 09/18/18 04:00 Pulse 72 09/18/18 07:43 Resp 33 H 09/18/18 07:00 BP 129/64 09/18/18 06:00 Pulse Ox 92 L 09/18/18 07:00 Intake & Output 09/17/18 09/18/18 09/18/18 18:59 06:59 18:59 Intake Total 220 712 20 Output Total 440 625 50 Balance -220 87 -30 Weight 120.5 kg Intake: IV 220 240 20 Sodium Chloride 0.9% 1, 220 240 20 000 ml @ 20 mls/hr IV . Q24H [facility] Rx#:[id number] Oral 472 Output: Urine 440 625 50 Other: Voiding Method Indwelling Catheter Indwelling Catheter - Constitutional General appearance: Present: cooperative, no acute distress - EENT ENT: Present: hearing grossly normal - Respiratory Details: No difficulty with respiration - Gastrointestinal Gastrointestinal Comment(s): Soft, nontender, nondistended, no rebound, no guarding - Musculoskeletal Musculoskeletal: Present: generalized weakness - Labs CBC & Chem 7: 09/18/18 04:40 09/18/18 04:40 Labs: Abnormal Lab Results - Last 24 Hours (Table) 09/17/18 09/17/18 09/17/18 Range/Units 12:04 16:52 20:44 Chloride (98-107) mmol/L Carbon Dioxide (22-30) mmol/L BUN (9-20) mg/dL Creatinine (0.66-1.25) mg/dL Glucose (74-99) mg/dL POC Glucose (mg/dL) 156 H 197 H 216 H (75-99) mg/dL Phosphorus (2.5-4.5) mg/dL 09/18/18 09/18/18 Range/Units 04:40 07:23 Chloride 95 L (98-107) mmol/L Carbon Dioxide 36 H (22-30) mmol/L BUN 57 H (9-20) mg/dL Creatinine 1.91 H (0.66-1.25) mg/dL Glucose 254 H (74-99) mg/dL POC Glucose (mg/dL) 230 H (75-99) mg/dL Phosphorus 5.0 H (2.5-4.5) mg/dL Microbiology - Last 24 Hours (Table) 09/17/18 02:15 Urine Culture - Preliminary Urine,Catheterized Assessment and Plan Plan: 82-year-old male with abdominal distention, ileus -The patient continues to have bowel function with flatus. He is tolerating diet without any nausea and vomiting. Ileus appears to be resolving. Continue diet.
[2018-09-18] MEDS: metFORMIN 500 MG TAB PO SCH ×2 (09:48→17:29)
[2018-09-18] MEDS: INSULIN ASPART (NovoLOG) 100 UNIT/ML VIAL SQ SCH ×4 (09:52→21:41)
[2018-09-18] MEDS: INSULN ASP PRT/INSULIN ASPART 100 UNIT/ML 10 ML VIAL SQ SCH ×2 (09:53→17:36)
[2018-09-18 10:15] LABS: Glucose,Whole Blood 323 mg/dL (75-99)
--- NOTE | 2018-09-18 10:28 | P.PN ---
Subjective Progress Note Date: 09/18/18 On today's evaluation of 09/18/2018 I'm seeing this patient for a follow-up. This patient is a obese male patient with multiple medical problems and comorbidities most significant of which is a CVA with right-sided hemiplegia/weakness in addition to chronic atrial fibrillation, chronic hypoxic and hypercapnic respiratory failure possibly related to underlying obstructive sleep apnea/pickwickian features in addition to that the patient is known to have diabetes, hypertension, hyperlipidemia, or any artery disease with previous myocardial infarction and previous coronary artery bypass surgery. The patient is brought into the intensive care unit because of worsening shortness of breath and signs of fluid overload. Same time the patient was having ongoing ileus issues. The patient is currently being diuresis with IV Lasix 40 mg every 8 hours. He is in a negative fluid balance. He reports improvement in lower extremity edema. His creatinine is up to 1.9 and I suspect the patient may have an underlying chronic renal failure/chronic kidney disease. His chest x-ray still showing cardiomegaly. There is ongoing opacification of the right lung and a CAT scan of the chest will be further required to characterized abnormalities in the right lung. Mentation is within normal. Breathing is improved since yesterday and the patient is currently off the BiPAP. He was able to tolerate nectar thick fluid for breakfast without any nausea or vomiting. He did have a bowel movement. He was seen by general surgery and he is tolerating diet without any nausea or vomiting. His ileus has resolved. The echocardiogram at shown an ejection fraction of 55-60%. The patient has moderate aortic stenosis, moderate mitral calcification and mild mitral regurgitation. Right ventricular systolic pressure estimated to be around 50 mmHg. No pericardial effusion. Objective - Vital Signs Vital signs: Vital Signs Temp 98.6 F 09/18/18 08:00 Pulse 70 09/18/18 09:00 Resp 21 09/18/18 09:00 BP 132/63 09/18/18 09:00 Pulse Ox 90 L 09/18/18 09:00 Intake & Output 09/17/18 09/18/18 09/18/18 18:59 06:59 18:59 Intake Total 220 712 60 Output Total 440 625 150 Balance -220 87 -90 Weight 120.5 kg Intake: IV 220 240 60 Sodium Chloride 0.9% 220 240 60 000 ml @ 20 mls/hr IV . Q24H [facility] Rx#:[id number] Oral 472 Output: Urine 440 625 150 Other: Voiding Method Indwelling Catheter Indwelling Catheter - Exam Obese, comfortable likely distress. Head exam was generally normal. There was no scleral icterus or corneal arcus. Mucous membranes were moist. Neck was supple and without jugular venous distension, thyromegaly, or carotid bruits. Carotids were easily palpable bilaterally. There was no adenopathy. Patient has a Mallampati class IV and there is no goiter or neck masses. Lungs sounds are diminished right base more than the left and there is some limited bibasilar crackles. Overall breath sounds are diminished. Heart sounds are irregular, possible sinus stool and there is no significant murmurs appreciated. His cardiac exam is consistent with atrial fibrillation. Abdominal exam revealed normal bowel sounds. The abdomen was soft, non-tender, and without masses, organomegaly, or appreciable enlargement of the abdominal aorta. Extremities revealed +1 edema in light lower extremity with seems to be slightly more swollen compared to left that the patient has a right-sided hemiplegia and weakness rated to a previous CVA. No cyanosis. No clubbing. Examination of the skin revealed no evidence of significant rashes, suspicious appearing nevi or other concerning lesions. Neurologically the patient has a right-sided weakness and a motor function the right upper and right lower extremities currently around 3 out of 5. No Babinski. No clonus at this point in time. Mental status is appropriate and the patient is following commands and answering questions appropriately. Normal speech. - Labs CBC & Chem 7: 09/18/18 04:40 09/18/18 04:40 Labs: Abnormal Lab Results - Last 24 Hours (Table) 09/17/18 09/17/18 09/17/18 Range/Units 12:04 16:52 20:44 Chloride (98-107) mmol/L Carbon Dioxide (22-30) mmol/L BUN (9-20) mg/dL Creatinine (0.66-1.25) mg/dL Glucose (74-99) mg/dL POC Glucose (mg/dL) 156 H 197 H 216 H (75-99) mg/dL Phosphorus (2.5-4.5) mg/dL 09/18/18 09/18/18 09/18/18 Range/Units 04:40 07:23 09:49 Chloride 95 L (98-107) mmol/L Carbon Dioxide 36 H (22-30) mmol/L BUN 57 H (9-20) mg/dL Creatinine 1.91 H (0.66-1.25) mg/dL Glucose 254 H (74-99) mg/dL POC Glucose (mg/dL) 230 H 323 H (75-99) mg/dL Phosphorus 5.0 H (2.5-4.5) mg/dL Microbiology - Last 24 Hours (Table) 09/17/18 02:15 Urine Culture - Preliminary Urine,Catheterized Assessment and Plan Plan: Assessment 1 acute hypoxic respiratory failure with CHF and diastolic dysfunction and possibly evolution of a right-sided pleural effusion as the patient has pers istent opacification of the right lung. From the chest will be needed to further characterize the right lower lobe abnormalities. Pneumonia is doubtful. The patient was on BiPAP for respiratory support and currently off BiPAP on 4l O2 by nasal cannula. 2 CHF with diastolic dysfunction and secondary pulmonary hypertension 3 morbid obesity 4 chronic hypercapnic respiratory failure my consider obstructive sleep apnea and obesity hypoventilation syndrome 5 CVA with right-sided weakness 6 chronic atrial fibrillation 7 coronary artery disease appears bypass surgery 8 chronic kidney disease 9 previous history of myocardial infarction 10 diabetes mellitus 11 BPH 12 ileus, recovered Plan I'm going to obtain a CAT scan of the chest without contrast to characterize the right lower lobe pulmonary abnormalities. If there is sizable effusion will consider a thoracentesis. Keep the Lasix for another 24 hours at the same dose and monitor renal function. Keep the fluid balance negative. Ileus has recovered. Advance diet as tolerated. Monitor blood sugar. We'll continue to follow.
[2018-09-18] MEDS: amLODIPine 5 MG TAB PO SCH ×2 (11:14→21:41)
[2018-09-18] MEDS: ATORVASTATIN 40 MG TAB PO SCH (11:15)
[2018-09-18] MEDS: LISINOPRIL 20 MG TAB PO SCH ×2 (11:15→21:41)
[2018-09-18] MEDS: CLOPIDOGREL 75 MG TAB PO SCH (11:15)
[2018-09-18] MEDS: DOCUSATE 100 MG CAP PO SCH ×2 (11:15→21:40)
[2018-09-18] MEDS: METOPROLOL TARTRATE 50 MG TAB PO SCH (11:15)
[2018-09-18] MEDS: TAMSULOSIN 0.4 MG CAP.ER.24H PO SCH (11:16)
--- NOTE | 2018-09-18 11:16 | CT ---
EXAMINATION TYPE: CT chest wo con DATE OF EXAM: 09/18/2018 COMPARISON: 09/18/2018 HISTORY: Difficulty breathing CT DLP: 574.3 mGycm. Automated Exposure Control for Dose Reduction was Utilized. TECHNIQUE: CT scan of the thorax is performed without IV contrast. FINDINGS: LUNGS: There are small bilateral pleural effusions and areas of subsegmental consolidation. No pneumo thorax. No sizable pulmonary nodule. There is right hemidiaphragm elevation which may been the basis of phrenic nerve palsy. Correlate clinically. MEDIASTINUM: Lack of IV contrast is noted to limit evaluation for mediastinal and especially hilar ad enopathy. There is three-vessel coronary atherosclerotic change and cardiomegaly. There are prominent lymph nodes in the pretracheal space measuring short axis of 1.1 cm. OTHER: Postsurgical change involving the sternum. Hypertrophic and degenerative change of the spine. Tiny gallstone noted. IMPRESSION: 1. Bilateral consolidation and small effusion greater on the right. Differential diagnosis would incl ude pulmonary vascular congestion correlate for CHF. Otherwise, consider pneumonia. 2. Cholelithiasis 3. Cardiomegaly with dense coronary artery atherosclerotic changes. 4. Nonspecific adenopathy in the mediastinum.
[2018-09-18 12:10] LABS: Glucose,Whole Blood 317 mg/dL (75-99)
--- NOTE | 2018-09-18 12:21 | P.PN ---
Subjective Patient continues in the intensive care unit. Respirations easier at this time on nasal cannula. Continues with consultation with cardiology regarding atrial fibrillation and congestive heart failure. 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 Q24H [facility] Rx#:[id number] Oral 472 Output: Urine 440 625 250 Other: Voiding Method Indwelling Catheter Indwelling Catheter - Constitutional General appearance: Present: mild distress - EENT Eyes: Present: PERRLA Ears: bilateral: normal - Neck Neck: Present: normal ROM - Respiratory Respiratory: bilateral: diminished - Cardiovascular Rhythm: irregularly irregular - Gastrointestinal General gastrointestinal: Present: normal bowel sounds, soft - Integumentary Integumentary: Present: normal - Neurologic Neurologic: Present: CNII-XII intact - Musculoskeletal Musculoskeletal: Present: generalized weakness - Psychiatric Psychiatric: Present: A&O x's 3, appropriate affect, intact judgment & insight - Labs CBC & Chem 7: 09/18/18 04:40 09/18/18 04:40 Labs: Abnormal Lab Results - Last 24 Hours (Table) 09/17/18 09/17/18 09/17/18 Range/Units 12:04 16:52 20:44 Chloride (98-107) mmol/L Carbon Dioxide (22-30) mmol/L BUN (9-20) mg/dL Creatinine (0.66-1.25) mg/dL Glucose (74-99) mg/dL POC Glucose (mg/dL) 156 H 197 H 216 H (75-99) mg/dL Phosphorus (2.5-4.5) mg/dL 09/18/18 09/18/18 09/18/18 Range/Units 04:40 07:23 09:49 Chloride 95 L (98-107) mmol/L Carbon Dioxide 36 H (22-30) mmol/L BUN 57 H (9-20) mg/dL Creatinine 1.91 H (0.66-1.25) mg/dL Glucose 254 H (74-99) mg/dL POC Glucose (mg/dL) 230 H 323 H (75-99) mg/dL Phosphorus 5.0 H (2.5-4.5) mg/dL Microbiology - Last 24 Hours (Table) 09/17/18 02:15 Urine Culture - Preliminary Urine,Catheterized Assessment and Plan Plan: Assessment pulmonary edema secondary congestive heart. 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
--- NOTE | 2018-09-18 15:15 | P.PN ---
Subjective Patient is a lot more alert today. He was able to talk 20. He denies any shortness of breath chest discomfort he looks comfortable he is alert and oriented Blood pressure 131/78 mmHg pulse rate in the 80s afebrile and 8.5F Respirations 16-18 he looks comfortable no distress Heart sounds were S2 are normal no murmurs or gallop or rub Rhythm is irregular but rates are controlled Breath sounds reduced bilaterally Lucio for a for but no rhonchi Abdomen soft nontender extremities are warm no edema Weakness in the right upper and lower extremities Impression Persistent atrial fibrillation Rate controlled History of 2 CVAs in the past Hypertension Rising BUN and creatinine Likely ileus yesterday Suggest Continue Plavix 75 mg by mouth daily and add xarelto 15 mg by mouth daily Continue statins 40 mg daily Continue antihypertensive therapy At this time he is receiving 40 mg IV Lasix every 8 hours I will reduce the dose of Lasix IV to 40 mg once daily Objective - Vital Signs Vital signs: Vital Signs Temp 98.5 F 09/18/18 12:00 Pulse 68 09/18/18 14:00 Resp 23 09/18/18 14:00 BP 115/62 09/18/18 14:00 Pulse Ox 92 L 09/18/18 14:00 Intake & Output 09/17/18 09/18/18 09/18/18 18:59 06:59 18:59 Intake Total 220 712 160 Output Total 440 625 450 Balance -220 87 -290 Weight 120.5 kg Intake: IV 220 240 160 Sodium Chloride 0.9% 1, 220 240 160 000 ml @ 20 mls/hr IV . Q24H [facility] Rx#:[id number] Oral 472 Output: Urine 440 625 450 Other: Voiding Method Indwelling Catheter Indwelling Catheter # Bowel Movements 1 - Labs CBC & Chem 7: 09/18/18 04:40 09/18/18 04:40 Labs: Abnormal Lab Results - Last 24 Hours (Table) 09/17/18 09/17/18 09/18/18 Range/Units 16:52 20:44 04:40 Chloride 95 L (98-107) mmol/L Carbon Dioxide 36 H (22-30) mmol/L BUN 57 H (9-20) mg/dL Creatinine 1.91 H (0.66-1.25) mg/dL Glucose 254 H (74-99) mg/dL POC Glucose (mg/dL) 197 H 216 H (75-99) mg/dL Phosphorus 5.0 H (2.5-4.5) mg/dL 09/18/18 09/18/18 09/18/18 Range/Units 07:23 09:49 11:56 Chloride (98-107) mmol/L Carbon Dioxide (22-30) mmol/L BUN (9-20) mg/dL Creatinine (0.66-1.25) mg/dL Glucose (74-99) mg/dL POC Glucose (mg/dL) 230 H 323 H 317 H (75-99) mg/dL Phosphorus (2.5-4.5) mg/dL Microbiology - Last 24 Hours (Table) 09/17/18 02:15 Urine Culture - Final Urine,Catheterized
[2018-09-18 17:16] LABS: Glucose,Whole Blood 215 mg/dL (75-99)
[2018-09-18] MEDS: RIVAROXABAN 15 MG TAB PO SCH (17:34)
[2018-09-18] MEDS: MULTIVITAMINS, THERA 1 EACH TAB PO SCH (17:34)
[2018-09-18 21:21] LABS: Glucose,Whole Blood 231 mg/dL (75-99)
[2018-09-19] MEDS: SODIUM CHLORIDE 0.9% 1,000 ML IV SCH (03:50)
[2018-09-19 06:30] LABS: Basophils % (A) 0 %; Eosinophils # (A) 0.3 k/uL (0-0.7); Eosinophils % (A) 3 %; HCT 41.4 % (39.0-53.0); HGB 13.4 gm/dL (13.0-17.5); Lymphocytes % (A) 26 %; MCH 28.1 pg (25.0-35.0); MCHC 32.4 g/dL (31.0-37.0); MCV 86.5 fL (80.0-100.0); Mean Platelet Volume 7.1; Monocytes # (A) 0.6 k/uL (0-1.0); Monocytes % (A) 7 %; Neutrophils # (A) 4.8 k/uL (1.3-7.7); Neutrophils % (A) 61 %; Platelet Count 190 k/uL (150-450); RBC 4.79 m/uL (4.30-5.90); RDW 14.1 % (11.5-15.5); WBC 7.9 k/uL (3.8-10.6)
[2018-09-19 06:38] LABS: Calcium 8.6 mg/dL (8.4-10.2); Magnesium 2.1 mg/dL (1.6-2.3); Phosphorus 3.6 mg/dL (2.5-4.5); Potassium 3.8 mmol/L (3.5-5.1)
[2018-09-19] MEDS: INSULIN ASPART (NovoLOG) 100 UNIT/ML VIAL SQ SCH ×4 (06:57→21:41)
[2018-09-19 06:58] LABS: Glucose,Whole Blood 116 mg/dL (75-99)
[2018-09-19] MEDS ORDERED: Potassium Replacement Protocol 1 EACH MISC MISCELLANE PRN (07:02)
[2018-09-19] MEDS: metFORMIN 500 MG TAB PO SCH (07:05)
[2018-09-19] MEDS: INSULN ASP PRT/INSULIN ASPART 100 UNIT/ML 10 ML VIAL SQ SCH ×2 (07:07→17:28)
[2018-09-19] MEDS: IPRATROPIUM-ALBUTEROL 3 ML NEB INHALATION SCH ×4 (07:25→19:41)
[2018-09-19 07:26] LABS: Glucose,Whole Blood 117 mg/dL (75-99)
[2018-09-19] MEDS ORDERED: POTASSIUM CHLORIDE ER 20 MEQ TAB.ER PO SCH (08:00)
[2018-09-19] MEDS: amLODIPine 5 MG TAB PO SCH ×2 (08:52→21:41)
[2018-09-19] MEDS: LISINOPRIL 20 MG TAB PO SCH ×2 (08:52→21:41)
[2018-09-19] MEDS: METOPROLOL TARTRATE 50 MG TAB PO SCH (08:53)
[2018-09-19] MEDS: CLOPIDOGREL 75 MG TAB PO SCH (08:53)
[2018-09-19] MEDS: ATORVASTATIN 40 MG TAB PO SCH (08:53)
[2018-09-19] MEDS ORDERED: FUROSEMIDE 10 MG/ML 4 ML VIAL IV SCH (09:00)
[2018-09-19] MEDS: DOCUSATE 100 MG CAP PO SCH ×2 (09:25→21:35)
[2018-09-19] MEDS: TAMSULOSIN 0.4 MG CAP.ER.24H PO SCH (09:27)
[2018-09-19 11:47] LABS: Glucose,Whole Blood 133 mg/dL (75-99)
--- NOTE | 2018-09-19 12:14 | P.PN ---
Subjective Patient more awake and responsive today. Able to swallow water without aspiration. Had consultation with cardiology and pulmonology. Continues in atrial fibrillation controlled rate was able to his nasal cannula rather than BiPAP last Objective - Vital Signs Vital signs: Vital Signs Temp 98 F 09/19/18 08:00 Pulse 80 09/19/18 11:30 Resp 14 09/19/18 10:00 BP 132/76 09/19/18 10:00 Pulse Ox 95 09/19/18 10:00 Intake & Output 09/18/18 09/19/18 09/19/18 18:59 06:59 18:59 Intake Total 240 840 20 Output Total 640 700 375 Balance -400 140 -355 Weight 123.1 kg Intake: IV 240 240 20 Sodium Chloride 0.9% 1, 240 240 20 000 ml @ 20 mls/hr IV . Q24H [facility] Rx#:[id number] Oral 600 Output: Urine 640 700 375 Other: Voiding Method Indwelling Catheter Indwelling Catheter Indwelling Catheter # Bowel Movements 1 1 - Constitutional General appearance: Present: mild distress, obese - EENT Eyes: Present: PERRLA Ears: bilateral: normal - Neck Neck: Present: normal ROM - Respiratory Respiratory: negative: CTA - Cardiovascular Rhythm: irregularly irregular - Gastrointestinal General gastrointestinal: Present: soft - Genitourinary Genitourinary Comment(s): Carballo catheter in place - Integumentary Integumentary: Present: normal - Neurologic Neurologic: Present: CNII-XII intact - Musculoskeletal Musculoskeletal: Present: right sided weakness - Psychiatric Psychiatric: Present: A&O x's 3, appropriate affect, intact judgment & insight - Labs CBC & Chem 7: 09/19/18 05:47 09/19/18 05:47 Labs: Abnormal Lab Results - Last 24 Hours (Table) 09/18/18 09/18/18 09/19/18 Range/Units 17:12 21:17 05:47 Chloride 95 L (98-107) mmol/L Carbon Dioxide 37 H (22-30) mmol/L BUN 51 H (9-20) mg/dL Creatinine 1.58 H (0.66-1.25) mg/dL POC Glucose (mg/dL) 215 H 231 H (75-99) mg/dL 09/19/18 09/19/18 09/19/18 Range/Units 06:55 07:24 11:44 Chloride (98-107) mmol/L Carbon Dioxide (22-30) mmol/L BUN (9-20) mg/dL Creatinine (0.66-1.25) mg/dL POC Glucose (mg/dL) 116 H 117 H 133 H (75-99) mg/dL Microbiology - Last 24 Hours (Table) 09/17/18 02:15 Urine Culture - Final Urine,Catheterized Assessment and Plan Plan: Assessment Pulmonary edema congestive heart failure diastolic acute on chronic dysfunction respiratory failure hypercapnic hypoxic Renal insufficiency renal failure stage III GFR 43 Atrial fibrillation new onset persistent Ileus resolving Hematuria with urinary retention History of coronary disease with CABG History of CVA/TIA with right-sided weakness Diabetes type 2 Hypertension Plan continue consultation with cardiology and pulmonology
--- NOTE | 2018-09-19 12:19 | P.PN ---
Subjective Progress Note Date: 09/19/18 On today's evaluation of 09/18/2018 I'm seeing this patient for a follow-up. This patient is a obese male patient with multiple medical problems and comorbidities most significant of which is a CVA with right-sided hemiplegia/weakness in addition to chronic atrial fibrillation, chronic hypoxic and hypercapnic respiratory failure possibly related to underlying obstructive sleep apnea/pickwickian features in addition to that the patient is known to have diabetes, hypertension, hyperlipidemia, or any artery disease with previous myocardial infarction and previous coronary artery bypass surgery. The patient is brought into the intensive care unit because of worsening shortness of breath and signs of fluid overload. Same time the patient was having ongoing ileus issues. The patient is currently being diuresis with IV Lasix 40 mg every 8 hours. He is in a negative fluid balance. He reports improvement in lower extremity edema. His creatinine is up to 1.9 and I suspect the patient may have an underlying chronic renal failure/chronic kidney disease. His chest x-ray still showing cardiomegaly. There is ongoing opacification of the right lung and a CAT scan of the chest will be further required to characterized abnormalities in the right lung. Mentation is within normal. Breathing is improved since yesterday and the patient is currently off the BiPAP. He was able to tolerate nectar thick fluid for breakfast without any nausea or vomiting. He did have a bowel movement. He was seen by general surgery and he is tolerating diet without any nausea or vomiting. His ileus has resolved. The echocardiogram at shown an ejection fraction of 55-60%. The patient has moderate aortic stenosis, moderate mitral calcification and mild mitral regurgitation. Right ventricular systolic pressure estimated to be around 50 mmHg. No pericardial effusion. On 09/19/2018, I'm seeing this patient for a follow-up. Is doing much better compared to yesterday. He is improving in regards to his acute hypoxic respiratory failure. His FiO2 has been weaned down to 1 L of oxygen by nasal cannula. The patient is not having any chest pain or shortness of breath or chest x-ray was noted. CAT scan of the chest was noted from yesterday and the patient has small bilateral pleural effusion that are not and the blood for thoracentesis. He received another dose of Lasix this morning and he put out approximately 500 mL of urine output. No nausea. No vomiting. No abdominal pain. His stooling. His renal function continues to improve in the creatinine is down to 1.5. No other significant events over the past 24 hours and the patient is condition is quite stable for now. He remains in atrial fibrillation. His rate is controlled. The patient is on Xarelto for long-term anticoagulants. Objective - Vital Signs Vital signs: Vital Signs Temp 98 F 09/19/18 08:00 Pulse 80 09/19/18 11:30 Resp 14 09/19/18 10:00 BP 132/76 09/19/18 10:00 Pulse Ox 95 09/19/18 10:00 Intake & Output 09/18/18 09/19/18 09/19/18 18:59 06:59 18:59 Intake Total 240 840 20 Output Total 640 700 375 Balance -400 140 -355 Weight 123.1 kg Intake: IV 240 240 20 Sodium Chloride 0.9% 1, 240 240 20 000 ml @ 20 mls/hr IV . Q24H [facility] Rx#:[id number] Oral 600 Output: Urine 640 700 375 Other: Voiding Method Indwelling Catheter Indwelling Catheter Indwelling Catheter # Bowel Movements 1 1 - Exam Obese, comfortable likely distress. Head exam was generally normal. There was no scleral icterus or corneal arcus. Mucous membranes were moist. Neck was supple and without jugular venous distension, thyromegaly, or carotid bruits. Carotids were easily palpable bilaterally. There was no adenopathy. Patient has a Mallampati class IV and there is no goiter or neck masses. Lungs sounds are diminished right base more than the left and there is some limited bibasilar crackles. Overall breath sounds are diminished. Heart sounds are irregular, possible sinus stool and there is no significant murmurs appreciated. His cardiac exam is consistent with atrial fibrillation. Abdominal exam revealed normal bowel sounds. The abdomen was soft, non-tender, and without masses, organomegaly, or appreciable enlargement of the abdominal aorta. Extremities revealed +1 edema in light lower extremity with seems to be slightly more swollen compared to left that the patient has a right-sided hemiplegia and weakness rated to a previous CVA. No cyanosis. No clubbing. Examination of the skin revealed no evidence of significant rashes, suspicious appearing nevi or other concerning lesions. Neurologically the patient has a right-sided weakness and a motor function the right upper and right lower extremities currently around 3 out of 5. No Babinski. No clonus at this point in time. Mental status is appropriate and the patient is following commands and answering questions appropriately. Normal speech. - Labs CBC & Chem 7: 09/19/18 05:47 09/19/18 05:47 Labs: Abnormal Lab Results - Last 24 Hours (Table) 09/18/18 09/18/18 09/19/18 Range/Units 17:12 21:17 05:47 Chloride 95 L (98-107) mmol/L Carbon Dioxide 37 H (22-30) mmol/L BUN 51 H (9-20) mg/dL Creatinine 1.58 H (0.66-1.25) mg/dL POC Glucose (mg/dL) 215 H 231 H (75-99) mg/dL 09/19/18 09/19/18 09/19/18 Range/Units 06:55 07:24 11:44 Chloride (98-107) mmol/L Carbon Dioxide (22-30) mmol/L BUN (9-20) mg/dL Creatinine (0.66-1.25) mg/dL POC Glucose (mg/dL) 116 H 117 H 133 H (75-99) mg/dL Microbiology - Last 24 Hours (Table) 09/17/18 02:15 Urine Culture - Final Urine,Catheterized Assessment and Plan Plan: Assessment 1 acute hypoxic respiratory failure with CHF and diastolic dysfunction and possibly evolution of a right-sided pleural effusion as the patient has persistent opacification of the right lung. From the chest will be needed to further characterize the right lower lobe abnormalities. Pneumonia is doubtful. The patient was on BiPAP for respiratory support and currently off BiPAP on 4l O2 by nasal cannula. On today's evaluation of 09/19/2018, the patient is improving. The patient is still diuresing with IV Lasix. His FiO2 has been weaned down to 1 L per nasal cannula. CAT scan of the chest was reviewed and there is no evidence of pneumonia or any sizable pleural effusion and the pleural effusions are b ilateral and they're very small. The patient was reassured. No need for any thoracentesis. 2 CHF with diastolic dysfunction and secondary pulmonary hypertension 3 morbid obesity 4 chronic hypercapnic respiratory failure my consider obstructive sleep apnea and obesity hypoventilation syndrome 5 CVA with right-sided weakness 6 chronic atrial fibrillation 7 coronary artery disease appears bypass surgery 8 chronic kidney disease 9 previous history of myocardial infarction 10 diabetes mellitus 11 BPH 12 ileus, recovered Plan CAT scan of the chest was reviewed. No abnormalities was noted other than small bilateral pleural effusions. These are not abdomen for thoracentesis. Solomon nued IV Lasix. Wean down the FiO2. Transfer this patient to medical surgical floor for further monitoring. Creatinine is also improving and the creatinine is down to 1.5. His atrial fibrillation is under good control and the patient is on long-term and coagulation with Xarelto. Rest of the medication was reviewed. We'll switch this patient oral Lasix for tomorrow. Continue long- acting insulin for blood sugar control.
[2018-09-19] MEDS: MULTIVITAMINS, THERA 1 EACH TAB PO SCH (13:00)
--- NOTE | 2018-09-19 13:34 | P.PN ---
<Yosvany Mullins - Last Filed: 09/19/18 13:34> Objective - Vital Signs Vital signs: Vital Signs Temp 98.2 F 09/19/18 12:00 Pulse 71 09/19/18 13:00 Resp 15 09/19/18 13:00 BP 113/71 09/19/18 13:00 Pulse Ox 87 L 09/19/18 13:00 Intake & Output 09/18/18 09/19/18 09/19/18 18:59 06:59 18:59 Intake Total 240 840 20 Output Total 640 700 675 Balance -400 140 -655 Weight 123.1 kg Intake: IV 240 240 20 Sodium Chloride 0.9% 1, 240 240 20 000 ml @ 20 mls/hr IV . Q24H [facility] Rx#:[id number] Oral 600 Output: Urine 640 700 675 Other: Voiding Method Indwelling Catheter Indwelling Catheter Indwelling Catheter # Bowel Movements 1 1 - Labs CBC & Chem 7: 09/19/18 05:47 09/19/18 05:47 Labs: Abnormal Lab Results - Last 24 Hours (Table) 09/18/18 09/18/18 09/19/18 Range/Units 17:12 21:17 05:47 Chloride 95 L (98-107) mmol/L Carbon Dioxide 37 H (22-30) mmol/L BUN 51 H (9-20) mg/dL Creatinine 1.58 H (0.66-1.25) mg/dL POC Glucose (mg/dL) 215 H 231 H (75-99) mg/dL 09/19/18 09/19/18 09/19/18 Range/Units 06:55 07:24 11:44 Chloride (98-107) mmol/L Carbon Dioxide (22-30) mmol/L BUN (9-20) mg/dL Creatinine (0.66-1.25) mg/dL POC Glucose (mg/dL) 116 H 117 H 133 H (75-99) mg/dL Microbiology - Last 24 Hours (Table) 09/17/18 02:15 Urine Culture - Final Urine,Catheterized <Juliette Flores - Last Filed: 09/19/18 15:01> Subjective Patient is seen and examined resting comfortably in bed with his at the bedside. He states he had a quite restless night last night. He states his arm was itching and he thought it was due to the IV so he pulled it out. He denies symptoms of chest discomfort, shortness of breath, dizziness or palpitations. He continues to be in atrial fibrillation with a controlled ventricular response. He states he had a very mild nosebleed this morning that lasted less than a couple of minutes it was more or less dried blood that he sneezed into a tissue. He denies any blood in the stool or urine. Currently maintained on amlodipine 5 mg twice a day, atorvastatin 40 mg daily, Plavix 75 mg daily, Lasix 40 mg IV daily, lisinopril 20 mg twice a day, metoprolol 100 mg daily and Xarelto 15 mg daily. Blood pressure 118/73 heart rate 70 afebrile maintaining oxygen saturation on nasal cannula. Laboratory data reviewed, WBC 7.9, he moglobin 13.4, platelets 190, sodium 138, potassium 3.8, creatinine 1.58 magnesium 2.1. GENERAL: Well-appearing, well-nourished and in no acute distress. NECK: Supple without JVD or thyromegaly. LUNGS: Breath sounds clear to auscultation bilaterally. Respiration equal and unlabored. No wheezes, rales or rhonchi. Diminished bilaterally. HEART: Irregular rate and rhythm without murmurs, rubs or gallops. S1 and S2 heard. EXTREMITIES: No edema. No clubbing or cyanosis. Peripheral pulses intact. ASSESSMENT Persistent atrial fibrillation on long-term anticoagulation. History of CVA 2 in the past Hypertension PLAN Continue anticoagulation as currently ordered in the form of Xarelto on Plavix. Transition to oral diuretics. We will continue to follow and make recommendations accordingly. Nurse Practitioner note has been reviewed, I agree with a documented findings and plan of care. Patient was seen and examined. Objective - Vital Signs Vital signs: Vital Signs Temp 98.2 F 09/19/18 12:00 Pulse 70 09/19/18 14:00 Resp 22 09/19/18 14:00 BP 118/73 09/19/18 14:00 Pulse Ox 92 L 09/19/18 14:00 Intake & Output 09/18/18 09/19/18 09/19/18 18:59 06:59 18:59 Intake Total 240 840 20 Output Total 640 700 675 Balance -400 140 -655 Weight 123.1 kg Intake: IV 240 240 20 Sodium Chloride 0.9% 1, 240 240 20 000 ml @ 20 mls/hr IV . Q24H [facility] Rx#:[id number] Oral 600 Output: Urine 640 700 675 Other: Voiding Method Indwelling Catheter Indwelling Catheter Indwelling Catheter # Bowel Movements 1 1 - Labs CBC & Chem 7: 09/19/18 05:47 09/19/18 05:47 Labs: Abnormal Lab Results - Last 24 Hours (Table) 09/18/18 09/18/18 09/19/18 Range/Units 17:12 21:17 05:47 Chloride 95 L (98-107) mmol/L Carbon Dioxide 37 H (22-30) mmol/L BUN 51 H (9-20) mg/dL Creatinine 1.58 H (0.66-1.25) mg/dL POC Glucose (mg/dL) 215 H 231 H (75-99) mg/dL 09/19/18 09/19/18 09/19/18 Range/Units 06:55 07:24 11:44 Chloride (98-107) mmol/L Carbon Dioxide (22-30) mmol/L BUN (9-20) mg/dL Creatinine (0.66-1.25) mg/dL POC Glucose (mg/dL) 116 H 117 H 133 H (75-99) mg/dL Microbiology - Last 24 Hours (Table) 09/17/18 02:15 Urine Culture - Final Urine,Catheterized
--- NOTE | 2018-09-19 15:35 | P.PN ---
Subjective Progress Note Date: 09/19/18 Patient seen and examined at bedside. Currently receiving breathing treatment. Tolerating diet. Having bowel movements and flatus. Objective - Vital Signs Vital signs: Vital Signs Temp 98.2 F 09/19/18 12:00 Pulse 77 09/19/18 15:31 Resp 22 09/19/18 14:00 BP 118/73 09/19/18 14:00 Pulse Ox 92 L 09/19/18 14:00 Intake & Output 09/18/18 09/19/18 09/19/18 18:59 06:59 18:59 Intake Total 240 840 20 Output Total 640 700 675 Balance -400 140 -655 Weight 123.1 kg Intake: IV 240 240 20 Sodium Chloride 0.9% 1, 240 240 20 000 ml @ 20 mls/hr IV . Q24H [facility] Rx#:[id number] Oral 600 Output: Urine 640 700 675 Other: Voiding Method Indwelling Catheter Indwelling Catheter Indwelling Catheter # Bowel Movements 1 1 - Constitutional General appearance: Present: cooperative, no acute distress - Respiratory Details: No difficulty with respiration - Gastrointestinal Gastrointestinal Comment(s): Soft, nontender, nondistended, no rebound, no guarding - Psychiatric Psychiatric: Present: A&O x's 3 - Labs CBC & Chem 7: 09/19/18 05:47 09/19/18 05:47 Labs: Abnormal Lab Results - Last 24 Hours (Table) 09/18/18 09/18/18 09/19/18 Range/Units 17:12 21:17 05:47 Chloride 95 L (98-107) mmol/L Carbon Dioxide 37 H (22-30) mmol/L BUN 51 H (9-20) mg/dL Creatinine 1.58 H (0.66-1.25) mg/dL POC Glucose (mg/dL) 215 H 231 H (75-99) mg/dL 09/19/18 09/19/18 09/19/18 Range/Units 06:55 07:24 11:44 Chloride (98-107) mmol/L Carbon Dioxide (22-30) mmol/L BUN (9-20) mg/dL Creatinine (0.66-1.25) mg/dL POC Glucose (mg/dL) 116 H 117 H 133 H (75-99) mg/dL Microbiology - Last 24 Hours (Table) 09/17/18 02:15 Urine Culture - Final Urine,Catheterized Assessment and Plan Plan: 82-year-old male with abdominal distention, ileus -The patient continues to have bowel function with flatus. He is tolerating diet without any nausea and vomiting. Ileus appears to be resolving. Continue diet. - Please call when necessary if any further recommendations needed
[2018-09-19] MEDS: FUROSEMIDE 40 MG TAB PO SCH (16:32)
[2018-09-19 16:40] LABS: Glucose,Whole Blood 254 mg/dL (75-99)
[2018-09-19] MEDS: RIVAROXABAN 15 MG TAB PO SCH (17:29)
--- NOTE | 2018-09-19 20:31 | P.PN ---
Progress Note - Text Progress Note Date: 09/19/18 Mr. Garcia's Carballo catheter remains in place. The urine is faintly blood-tinged. Ultrasound of the kidneys was unremarkable. Once the catheter is no longer needed for medical reasons, I would suggest that it be removed for a voiding trial. He continues to receive tamsulosin. He is able to void, bladder scan should be performed to assess bladder emptying. If he is unable to void, or if postvoid residuals are unacceptably high, the catheter should be replaced and he will follow up with me as an outpatient for further management.
[2018-09-19 20:50] LABS: Glucose,Whole Blood 188 mg/dL (75-99)
[2018-09-20 05:11] LABS: Basophils % (A) 1 %; Eosinophils # (A) 0.2 k/uL (0-0.7); Eosinophils % (A) 4 %; HCT 41.3 % (39.0-53.0); HGB 13.4 gm/dL (13.0-17.5); Lymphocytes # (A) 1.8 k/uL (1.0-4.8); Lymphocytes % (A) 27 %; MCH 28.1 pg (25.0-35.0); MCHC 32.4 g/dL (31.0-37.0); MCV 86.6 fL (80.0-100.0); Monocytes # (A) 0.5 k/uL (0-1.0); Monocytes % (A) 8 %; Neutrophils # (A) 3.9 k/uL (1.3-7.7); Neutrophils % (A) 58 %; Platelet Count 181 k/uL (150-450); RBC 4.77 m/uL (4.30-5.90); RDW 14.2 % (11.5-15.5); WBC 6.7 k/uL (3.8-10.6)
[2018-09-20 06:44] LABS: Glucose,Whole Blood 147 mg/dL (75-99)
[2018-09-20] MEDS: SODIUM CHLORIDE 0.9% 1,000 ML IV SCH ×2 (06:53→22:07)
[2018-09-20] MEDS: INSULIN ASPART (NovoLOG) 100 UNIT/ML VIAL SQ SCH ×4 (07:07→21:41)
[2018-09-20] MEDS: INSULN ASP PRT/INSULIN ASPART 100 UNIT/ML 10 ML VIAL SQ SCH ×2 (07:10→17:14)
[2018-09-20] MEDS: IPRATROPIUM-ALBUTEROL 3 ML NEB INHALATION SCH ×4 (07:43→19:40)
[2018-09-20] MEDS: DOCUSATE 100 MG CAP PO SCH ×2 (07:56→20:27)
[2018-09-20] MEDS: TAMSULOSIN 0.4 MG CAP.ER.24H PO SCH (09:11)
[2018-09-20] MEDS: FUROSEMIDE 40 MG TAB PO SCH ×2 (09:11→17:15)
[2018-09-20] MEDS: CLOPIDOGREL 75 MG TAB PO SCH (09:11)
[2018-09-20] MEDS: ATORVASTATIN 40 MG TAB PO SCH (09:11)
[2018-09-20] MEDS: amLODIPine 5 MG TAB PO SCH ×2 (09:11→20:27)
[2018-09-20] MEDS: METOPROLOL TARTRATE 50 MG TAB PO SCH (09:11)
[2018-09-20] MEDS: LISINOPRIL 20 MG TAB PO SCH ×2 (09:11→20:27)
[2018-09-20 10:03] VITALS: BMI 39.2
[2018-09-20 11:48] LABS: Glucose,Whole Blood 234 mg/dL (75-99)
[2018-09-20] MEDS: MULTIVITAMINS, THERA 1 EACH TAB PO SCH (12:52)
--- NOTE | 2018-09-20 12:53 | P.PN ---
Subjective Patient was transferred to stepdown unit today. States he feels improvement. Carballo catheter removed hopefully patient will be able to urinate. If not a catheter will need to be reinserted. Discussed possible rehab with family. Objective - Vital Signs Vital signs: Vital Signs Temp 98.0 F 09/20/18 11:50 Pulse 96 09/20/18 11:50 Resp 8 L 09/20/18 10:00 BP 132/83 09/20/18 11:50 Pulse Ox 91 L 09/20/18 11:50 Intake & Output 09/19/18 09/20/18 09/20/18 18:59 06:59 18:59 Intake Total 20 250 Output Total 925 550 400 Balance -905 -300 -400 Weight 127.7 kg 127.7 kg Intake: IV 20 Sodium Chloride 0.9% 1, 20 000 ml @ 20 mls/hr IV . Q24H [facility] Rx#:[id number] Oral 250 Output: Urine 925 550 400 Other: Voiding Method Indwelling Catheter Indwelling Catheter Indwelling Catheter - Constitutional General appearance: Present: obese - EENT Eyes: Present: PERRLA Ears: bilateral: normal - Neck Neck: Present: normal ROM - Respiratory Respiratory: bilateral: diminished, rales - Cardiovascular Rhythm: irregularly irregular Abnormal Heart Sounds: Present: systolic murmur - Gastrointestinal General gastrointestinal: Present: soft - Integumentary Integumentary: Present: normal - Neurologic Neurologic: Present: CNII-XII intact - Musculoskeletal Musculoskeletal: Present: right sided weakness - Psychiatric Psychiatric: Present: A&O x's 3, appropriate affect, intact judgment & insight - Labs CBC & Chem 7: 09/20/18 04:46 09/19/18 19:12 Labs: Abnormal Lab Results - Last 24 Hours (Table) 09/19/18 09/19/18 09/20/18 Range/Units 16:35 20:36 06:41 POC Glucose (mg/dL) 254 H 188 H 147 H (75-99) mg/dL 09/20/18 Range/Units 11:46 POC Glucose (mg/dL) 234 H (75-99) mg/dL Assessment and Plan Plan: Assessment Pulmonary edema with congestive failure diastolic dysfunction acute on chronic Respiratory failure hypercapnic hypoxic Ileus resolved Renal insufficiency stage III failure with GFR of 32 New onset of atrial fibrillation persistent controlled History of coronary disease with 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
--- NOTE | 2018-09-20 13:16 | P.PN ---
Subjective Progress Note Date: 09/20/18 Principal diagnosis: Acute hypoxic respiratory failure with CHF and diastolic dysfunction, right- sided pleural effusion On today's evaluation of 09/18/2018 I'm seeing this patient for a follow-up. This patient is a obese male patient with multiple medical problems and comorbidities most significant of which is a CVA with right-sided hemiplegia/weakness in addition to chronic atrial fibrillation, chronic hypoxic and hypercapnic respiratory failure possibly related to underlying obstructive sleep apnea/pickwickian features in addition to that the patient is known to have diabetes, hypertension, hyperlipidemia, or any artery disease with previous myocardial infarction and previous coronary artery bypass surgery. The patient is brought into the intensive care unit because of worsening shortness of breath and signs of fluid overload. Same time the patient was having ongoing ileus issues. The patient is currently being diuresis with IV Lasix 40 mg every 8 hours. He is in a negative fluid balance. He reports improvement in lower extremity edema. His creatinine is up to 1.9 and I suspect the patient may have an underlying chronic renal failure/chronic kidney disease. His chest x-ray still showing cardiomegaly. There is ongoing opacification of the right lung and a CAT scan of the chest will be further required to characterized abnormalities in the right lung. Mentation is within normal. Breathing is improved since yesterday and the patient is currently off the BiPAP. He was able to tolerate nectar thick fluid for breakfast without any nausea or vomit ing. He did have a bowel movement. He was seen by general surgery and he is tolerating diet without any nausea or vomiting. His ileus has resolved. The echocardiogram at shown an ejection fraction of 55-60%. The patient has moderate aortic stenosis, moderate mitral calcification and mild mitral regurgitation. Right ventricular systolic pressure estimated to be around 50 mmHg. No pericardial effusion. On 09/19/2018, I'm seeing this patient for a follow-up. Is doing much better compared to yesterday. He is improving in regards to his acute hypoxic respiratory failure. His FiO2 has been weaned down to 1 L of oxygen by nasal cannula. The patient is not having any chest pain or shortness of breath or chest x-ray was noted. CAT scan of the chest was noted from yesterday and the patient has small bilateral pleural effusion that are not and the blood for thoracentesis. He received another dose of Lasix this morning and he put out approximately 500 mL of urine output. No nausea. No vomiting. No abdominal pain. His stooling. His renal function continues to improve in the creatinine is down to 1.5. No other significant events over the past 24 hours and the patient is condition is quite stable for now. He remains in atrial fibrillation. His rate is controlled. The patient is on Xarelto for long-term anticoagulants. On 09/20/2018 patient seen in follow-up in the intensive care unit, he is awake and alert, in no acute distress, his breathing is improving, he is on 20 half liters of oxygen, and his pulse ox is 92%, room air pulse ox was 84%, afebrile. Clinically patient is stable, he is awake and alert, denies any worsening dyspnea, he continues on oral Lasix at 40 mg twice daily, today's labs have been reviewed, CBC is within normal limits, no BMP was done. On yesterday's labs patient's renal profile was improving, Carballo catheter is in place the patient is a -1205 ML fluid balance over the last 24 hours. Lung sounds are diminished at the right lower lobe, bibasilar crackles. He is tolerating oral diet. Objective - Vital Signs Vital signs: Vital Signs Temp 98.0 F 09/20/18 11:50 Pulse 96 09/20/18 11:50 Resp 8 L 09/20/18 10:00 BP 132/83 09/20/18 11:50 Pulse Ox 91 L 09/20/18 11:50 Intake & Output 09/19/18 09/20/18 09/20/18 18:59 06:59 18:59 Intake Total 20 250 Output Total 925 550 400 Balance -905 -300 -400 Weight 127.7 kg 127.7 kg Intake: IV 20 Sodium Chloride 0.9% 1, 20 000 ml @ 20 mls/hr IV . Q24H [facility] Rx#:[id number] Oral 250 Output: Urine 925 550 400 Other: Voiding Method Indwelling Catheter Indwelling Catheter Indwelling Catheter - Exam GENERAL EXAM: Alert, pleasant, 82-year-old white male, on 2 l of oxygen per nasal cannula, with a pulse ox of 92% comfortable in no apparent distress. HEAD: Normocephalic/atraumatic. EYES: Normal reaction of pupils, equal size. Conjunctiva pink, sclera white. NOSE: Clear with pink turbinates. THROAT: No erythema or exudates. NECK: No masses, no JVD, no thyroid enlargement, no adenopathy. CHEST: No chest wall deformity. Symmetrical expansion. LUNGS: Equal air entry with diminished breath sounds on the right base, and a few scattered crackles at bilateral bases CVS: Regular rate and rhythm, normal S1 and S2, no gallops, no murmurs, no rubs ABDOMEN: Soft, nontender. No hepatosplenomegaly, normal bowel sounds, no guarding or rigidity. EXTREMITIES: No clubbing, no edema, no cyanosis, 2+ pulses and upper and lower extremities. MUSCULOSKELETAL: Muscle strength and tone normal. SPINE: No scoliosis or deformity SKIN: No rashes CENTRAL NERVOUS SYSTEM: Alert and oriented -3. No focal deficits, tone is normal in all 4 extremities. PSYCHIATRIC: Alert and oriented -3. Appropriate affect. Intact judgment and insight. - Labs CBC & Chem 7: 09/20/18 04:46 09/19/18 19:12 Labs: Abnormal Lab Results - Last 24 Hours (Table) 09/19/18 09/19/18 09/20/18 Range/Units 16:35 20:36 06:41 POC Glucose (mg/dL) 254 H 188 H 147 H (75-99) mg/dL 09/20/18 Range/Units 11:46 POC Glucose (mg/dL) 234 H (75-99) mg/dL Assessment and Plan Plan: Assessment: 1 acute hypoxic respiratory failure with CHF and diastolic dysfunction and possibly evolution of a right-sided pleural effusion as the patient has persistent opacification of the right lung. From the chest will be needed to further characterize the right lower lobe abnormalities. Pneumonia is doubtful. The patient was on BiPAP for respiratory support and currently off BiPAP on 4l O2 by nasal cannula. On today's evaluation of 09/19/2018, the patient is improving. The patient is still diuresing with IV Lasix. His FiO2 has been weaned down to 1 L per nasal cannula. CAT scan of the chest was reviewed and there is no evidence of pneumonia or any sizable pleural effusion and the pleural effusions are bilateral and they're very small. The patient was reassured. No need for any thoracentesis. On 09/20/2018 patient is doing well, denies any dyspnea, denies any chest pain, he is on oral Lasix, maintaining negative fluid balance. No new chest x-ray, CT chest showed hilar consolidation and small pleural effusions, greater on the right. 2 CHF with diastolic dysfunction and secondary pulmonary hypertension 3 morbid obesity 4 chronic hypercapnic respiratory failure my consider obstructive sleep apnea and obesity hypoventilation syndrome 5 CVA with right-sided weakness 6 chronic atrial fibrillation 7 coronary artery disease appears bypass surgery 8 chronic kidney disease 9 previous history of myocardial infarction 10 diabetes mellitus 11 BPH 12 ileus, recovered Plan: Continue oral Lasix, wean FiO2, increase activity as tolerated, vital signs are stable, no worsening dyspnea, oxygenation has improved. Patient is stable to transfer out of the intensive care unit to selective care unit today. Patient is on oral anticoagulation for chronic atrial fibrillation the rate is controlled. I performed a history & physical examination of the patient and discussed their management with my nurse practitioner, Jeanette Carter. I reviewed the nurse practitioner's note and agree with the documented findings and plan of care. Lung sounds are positive for diminished breath sounds right lower lobe, with bibasilar crackles. The findings and the impression was discussed with the patient. I attest to the documentation by the nurse practitioner. Time with Patient: Less than 30
[2018-09-20 14:33] LABS: Calcium 8.4 mg/dL (8.4-10.2); Potassium 4.2 mmol/L (3.5-5.1)
[2018-09-20 16:32] LABS: Glucose,Whole Blood 283 mg/dL (75-99)
[2018-09-20] MEDS: RIVAROXABAN 15 MG TAB PO SCH (18:44)
[2018-09-20] MEDS: FUROSEMIDE 10 MG/ML 4 ML VIAL IV SCH (19:56)
[2018-09-20 21:23] LABS: Glucose,Whole Blood 185 mg/dL (75-99)
[2018-09-21 07:02] LABS: Glucose,Whole Blood 164 mg/dL (75-99)
[2018-09-21 08:02] VITALS: RESP 16
[2018-09-21] MEDS: IPRATROPIUM-ALBUTEROL 3 ML NEB INHALATION SCH ×3 (08:56→16:07)
[2018-09-21] MEDS: FUROSEMIDE 40 MG TAB PO SCH (09:10)
[2018-09-21] MEDS: DOCUSATE 100 MG CAP PO SCH (09:10)
[2018-09-21] MEDS: amLODIPine 5 MG TAB PO SCH (09:10)
[2018-09-21] MEDS: ATORVASTATIN 40 MG TAB PO SCH (09:10)
[2018-09-21] MEDS: INSULN ASP PRT/INSULIN ASPART 100 UNIT/ML 10 ML VIAL SQ SCH (09:10)
[2018-09-21] MEDS: CLOPIDOGREL 75 MG TAB PO SCH (09:10)
[2018-09-21] MEDS: TAMSULOSIN 0.4 MG CAP.ER.24H PO SCH (09:10)
[2018-09-21] MEDS: LISINOPRIL 20 MG TAB PO SCH (09:10)
[2018-09-21] MEDS: METOPROLOL TARTRATE 50 MG TAB PO SCH (09:10)
[2018-09-21] MEDS: INSULIN ASPART (NovoLOG) 100 UNIT/ML VIAL SQ SCH ×2 (09:11→12:22)
[2018-09-21 11:33] LABS: Glucose,Whole Blood 184 mg/dL (75-99)
[2018-09-21] MEDS: MULTIVITAMINS, THERA 1 EACH TAB PO SCH (12:22)
--- NOTE | 2018-09-21 12:38 | P.PN ---
Subjective Patient sitting up in chair at bedside family in attendance. Patient states he is improved [facility] Knee clearance from pulmonology and cardiology for transfer Carballo has been removed patient able to void [place] Objective - Vital Signs Vital signs: Vital Signs Temp 97.9 F 09/21/18 07:00 Pulse 76 09/21/18 09:12 Resp 16 09/21/18 07:00 BP 119/73 09/21/18 07:00 Pulse Ox 92 L 09/21/18 07:00 Intake & Output 09/20/18 09/21/18 09/21/18 18:59 06:59 18:59 Intake Total 1040 296 Output Total 400 920 600 Balance -400 120 -304 Weight 127.7 kg 125 kg Intake: Oral 1040 296 Output: Urine 400 920 600 Other: Voiding Method Indwelling Catheter Urinal Urinal # Voids 1 - Constitutional General appearance: Present: obese - EENT Eyes: Present: PERRLA Ears: bilateral: normal - Neck Neck: Present: normal ROM - Respiratory Respiratory: bilateral: diminished - Cardiovascular Rhythm: irregularly irregular Abnormal Heart Sounds: Present: systolic murmur - Gastrointestinal General gastrointestinal: Present: soft - Integumentary Integumentary: Present: normal - Neurologic Neurologic: Present: CNII-XII intact - Musculoskeletal Musculoskeletal: Present: generalized weakness, right sided weakness - Psychiatric Psychiatric: Present: A&O x's 3, appropriate affect, intact judgment & insight - Labs CBC & Chem 7: 09/20/18 04:46 09/20/18 04:46 Labs: Abnormal Lab Results - Last 24 Hours (Table) 09/20/18 09/20/18 09/20/18 Range/Units 04:46 16:31 21:21 Chloride 95 L (98-107) mmol/L Carbon Dioxide 36 H (22-30) mmol/L BUN 50 H (9-20) mg/dL Creatinine 1.52 H (0.66-1.25) mg/dL Glucose 126 H (74-99) mg/dL POC Glucose (mg/dL) 283 H 185 H (75-99) mg/dL 09/21/18 09/21/18 Range/Units 07:01 11:31 Chloride (98-107) mmol/L Carbon Dioxide (22-30) mmol/L BUN (9-20) mg/dL Creatinine (0.66-1.25) mg/dL Glucose (74-99) mg/dL POC Glucose (mg/dL) 164 H 184 H (75-99) mg/dL Assessment and Plan Plan: Assessment Acute pulmonary edema with congestive heart failure diastolic failure acute on chronic Respiratory failure hypercapnic hypoxic acute chronic renal failure stage III GFR 32 Atrial fibrillation new onset persistent Ileus resolved Urinary retention resolved History of coronary 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
[2018-09-21 14:25] VITALS: BP 114/64; PULSE 70; TEMP 98
--- NOTE | 2018-09-21 14:27 | P.DS ---
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 Patient does have history congestive heart failure he was admitted to the floor and then transferred to the intensive care unit for the intensive this oversaw that. Patient had consultation with cardiology for your persistent atrial fibrillation. Patient was seen by neurology for urinary retention. Patient was seen by gastroenterology for ileus that is resolved. Assessment pulmonary edema congestive heart failure diastolic acute and chronic respiratory failure hypercapnia hypoxic acute and chronic renal failure stage III GRF 32 atrial fibrillation new onset persistent ileus resolved urinary retention resolved history of coronary disease with CABG history of CVA with persistent right-sided weakness diabetes type II hypertension generalize weakness Plan transferred to [facility] for physical therapy rehab Patient Condition at Discharge: Fair Plan - Discharge Summary Discharge Rx Participant: No New Discharge Prescriptions: New Docusate [Colace] 100 mg PO BID cap Ipratropium-Albuterol Nebulize [Duoneb 0.5 mg-3 mg/3 ml Soln] 3 ml INHALATION RT-QID ampul.neb Tamsulosin [Flomax] 0.4 mg PO DAILY cap.er.24h Furosemide [Lasix] 40 mg PO BID@0900,1600 tab Rivaroxaban [Xarelto] 15 mg PO W/SUPPER tab Continue amLODIPine 5 mg PO BID Lisinopril 20 mg PO BID Insulin NPL/Insulin Lispro [humaLOG MIX 75-25 VIAL] 30 unit SQ AC-BRKFST Clopidogrel Bisulfate [Clopidogrel] 75 mg PO DAILY Multivitamins, Thera [Multivitamin (formulary)] 1 each PO DAILY@1200 #30 tab INSULIN LISPRO (humaLOG) [humaLOG] 0 units SQ ACHS Clifford-3 Fatty Acids/Fish Oil [Fish Oil 1,000 mg Softgel] 1,000 mg PO DAILY Metoprolol Tartrate [Lopressor] 100 mg PO DAILY Atorvastatin [Lipitor] 40 mg PO DAILY Discontinued metFORMIN HCL [Glucophage] 500 mg PO BID Insulin NPL/Insulin Lispro [humaLOG MIX 75-25 VIAL] 25 units SQ AC-SUPPER Aspirin EC [Ecotrin] 325 mg PO DAILY #30 tablet.dr [place] Action Furosemide 40 mg PO BID Discharge Medication List Clopidogrel Bisulfate [Clopidogrel] 75 mg PO DAILY 03/03/14 [History] Furosemide 40 mg PO BID 03/03/14 [History] Insulin NPL/Insulin Lispro [humaLOG MIX 75-25 VIAL] 30 unit SQ AC-BRKFST 03/03/14 [History] Lisinopril 20 mg PO BID 03/03/14 [History] amLODIPine 5 mg PO BID 03/03/14 [History] Multivitamins, Thera [Multivitamin (formulary)] 1 each PO DAILY@1200 #30 tab 03/06/14 [Rx] Atorvastatin [Lipitor] 40 mg PO DAILY 09/13/18 [History] INSULIN LISPRO (humaLOG) [humaLOG] 0 units SQ ACHS 09/13/18 [History] Metoprolol Tartrate [Lopressor] 100 mg PO DAILY 09/13/18 [History] Clifford-3 Fatty Acids/Fish Oil [Fish Oil 1,000 mg Softgel] 1,000 mg PO DAILY 09/13/18 [History] Docusate [Colace] 100 mg PO BID cap 09/21/18 [Rx] Furosemide [Lasix] 40 mg PO BID@0900,1600 tab 09/21/18 [Rx] Ipratropium-Albuterol Nebulize [Duoneb 0.5 mg-3 mg/3 ml Soln] 3 ml INHALATION RT-QID ampul.neb 09/21/18 [Rx] Rivaroxaban [Xarelto] 15 mg PO W/SUPPER tab 09/21/18 [Rx] Tamsulosin [Flomax] 0.4 mg PO DAILY cap.er.24h 04/11/19 [Rx] Follow up Appointment(s)/Referral(s): Carlos Alberto Feliciano MD [Primary Care Provider] - 1-2 days [facility], [NON-STAFF] - Patient Instructions/Handouts: Heart Failure (DC), A-fib (Atrial Fibrillation) (DC), Heart Healthy Diet (DC) Activity/Diet/Wound Care/Special Instructions: possible PH Medi
--- NOTE | 2018-09-21 15:39 | P.PN ---
Subjective Progress Note Date: 09/21/18 Principal diagnosis: Acute hypoxic respiratory failure with CHF and diastolic dysfunction, right- sided pleural effusion On today's evaluation of 09/18/2018 I'm seeing this patient for a follow-up. This patient is a obese male patient with multiple medical problems and comorbidities most significant of which is a CVA with right-sided hemiplegia/weakness in addition to chronic atrial fibrillation, chronic hypoxic and hypercapnic respiratory failure possibly related to underlying obstructive sleep apnea/pickwickian features in addition to that the patient is known to have diabetes, hypertension, hyperlipidemia, or any artery disease with previous myocardial infarction and previous coronary artery bypass surgery. The patient is brought into the intensive care unit because of worsening shortness of breath and signs of fluid overload. Same time the patient was having ongoing ileus issues. The patient is currently being diuresis with IV Lasix 40 mg every 8 hours. He is in a negative fluid balance. He reports improvement in lower extremity edema. His creatinine is up to 1.9 and I suspect the patient may have an underlying chronic renal failure/chronic kidney disease. His chest x-ray still showing cardiomegaly. There is ongoing opacification of the right lung and a CAT scan of the chest will be further required to characterized abnormalities in the right lung. Mentation is within normal. Breathing is improved since yesterday and the patient is currently off the BiPAP. He was able to tolerate nectar thick fluid for breakfast without any nausea or vomit ing. He did have a bowel movement. He was seen by general surgery and he is tolerating diet without any nausea or vomiting. His ileus has resolved. The echocardiogram at shown an ejection fraction of 55-60%. The patient has moderate aortic stenosis, moderate mitral calcification and mild mitral regurgitation. Right ventricular systolic pressure estimated to be around 50 mmHg. No pericardial effusion. On 09/19/2018, I'm seeing this patient for a follow-up. Is doing much better compared to yesterday. He is improving in regards to his acute hypoxic respiratory failure. His FiO2 has been weaned down to 1 L of oxygen by nasal cannula. The patient is not having any chest pain or shortness of breath or chest x-ray was noted. CAT scan of the chest was noted from yesterday and the patient has small bilateral pleural effusion that are not and the blood for thoracentesis. He received another dose of Lasix this morning and he put out approximately 500 mL of urine output. No nausea. No vomiting. No abdominal pain. His stooling. His renal function continues to improve in the creatinine is down to 1.5. No other significant events over the past 24 hours and the patient is condition is quite stable for now. He remains in atrial fibrillation. His rate is controlled. The patient is on Xarelto for long-term anticoagulants. On 09/20/2018 patient seen in follow-up in the intensive care unit, he is awake and alert, in no acute distress, his breathing is improving, he is on 20 half liters of oxygen, and his pulse ox is 92%, room air pulse ox was 84%, afebrile. Clinically patient is stable, he is awake and alert, denies any worsening dyspnea, he continues on oral Lasix at 40 mg twice daily, today's labs have been reviewed, CBC is within normal limits, no BMP was done. On yesterday's labs patient's renal profile was improving, Carballo catheter is in place the patient is a -1205 ML fluid balance over the last 24 hours. Lung sounds are diminished at the right lower lobe, bibasilar crackles. He is tolerating oral diet. On 09/21/2018 patient seen in follow-up on medical surgical unit, he sitting up in the recliner, in no acute distress, currently on 2 L of oxygen with pulse ox of 92%, - are stable, no complaints of shortness of breath or chest pain. Doing well, gaining negative fluid balance, his volume status is improving, and transition to oral Lasix, patient is on nebulized bronchodilators, lung sounds are positive for minimal crackles at the bases, no rhonchi or wheezes. Urine culture showed no growth, no fever or chills, no complaint of chest pain, no cough or phlegm production. From pulmonary perspective patient is stable for discharge to [facility] for rehabilitation today. Objective - Vital Signs Vital signs: Vital Signs Temp 98 F 09/21/18 14:24 Pulse 70 09/21/18 14:24 Resp 16 09/21/18 14:24 BP 114/64 09/21/18 14:24 Pulse Ox 92 L 09/21/18 14:24 Intake & Output 09/20/18 09/21/18 09/21/18 18:59 06:59 18:59 Intake Total 1040 592 Output Total 400 920 600 Balance -400 120 -8 Weight 127.7 kg 125 kg Intake: Oral 1040 592 Output: Urine 400 920 600 Other: Voiding Method Indwelling Catheter Urinal Urinal # Voids 1 1 - Exam GENERAL EXAM: Alert, pleasant, 82-year-old white male, on 2 l of oxygen per nasal cannula, with a pulse ox of 92% comfortable in no apparent distress. HEAD: Normocephalic/atraumatic. EYES: Normal reaction of pupils, equal size. Conjunctiva pink, sclera white. NOSE: Clear with pink turbinates. THROAT: No erythema or exudates. NECK: No masses, no JVD, no thyroid enlargement, no adenopathy. CHEST: No chest wall deformity. Symmetrical expansion. LUNGS: Equal air entry with diminished breath sounds on the right base, and a few scattered crackles at bilateral bases CVS: Regular rate and rhythm, normal S1 and S2, no gallops, no murmurs, no rubs ABDOMEN: Soft, nontender. No hepatosplenomegaly, normal bowel sounds, no guarding or rigidity. EXTREMITIES: No clubbing, no edema, no cyanosis, 2+ pulses and upper and lower extremities. MUSCULOSKELETAL: Muscle strength and tone normal. SPINE: No scoliosis or deformity SKIN: No rashes CENTRAL NERVOUS SYSTEM: Alert and oriented -3. No focal deficits, tone is normal in all 4 extremities. PSYCHIATRIC: Alert and oriented -3. Appropriate affect. Intact judgment and insight. - Labs CBC & Chem 7: 09/20/18 04:46 09/20/18 04:46 Labs: Abnormal Lab Results - Last 24 Hours (Table) 09/20/18 09/20/18 09/21/18 Range/Units 16:31 21:21 07:01 POC Glucose (mg/dL) 283 H 185 H 164 H (75-99) mg/dL 09/21/18 Range/Units 11:31 POC Glucose (mg/dL) 184 H (75-99) mg/dL Assessment and Plan Plan: Assessment: 1 acute hypoxic respiratory failure with CHF and diastolic dysfunction and possibly evolution of a right-sided pleural effusion as the patient has persistent opacification of the right lung. From the chest will be needed to further characterize the right lower lobe abnormalities. Pneumonia is doubtful. The patient was on BiPAP for respiratory support and currently off BiPAP on 4l O2 by nasal cannula. On today's evaluation of 09/19/2018, the patient is improving. The patient is still diuresing with IV Lasix. His FiO2 has been weaned down to 1 L per nasal cannula. CAT scan of the chest was reviewed and there is no evidence of pneumonia or any sizable pleural effusion and the pleural effusions are bilateral and they're very small. The patient was reassured. No need for any thoracentesis. On 09/20/2018 patient is doing well, denies any dyspnea, denies any chest pain, he is on oral Lasix, maintaining negative fluid balance. No new chest x-ray, CT chest showed hilar consolidation and small pleural effusions, greater on the right. 2 CHF with diastolic dysfunction and secondary pulmonary hypertension 3 morbid obesity 4 chronic hypercapnic respiratory failure my consider obstructive sleep apnea and obesity hypoventilation syndrome 5 CVA with right-sided weakness 6 chronic atrial fibrillation 7 coronary artery disease appears bypass surgery 8 chronic kidney disease 9 previous history of myocardial infarction 10 diabetes mellitus 11 BPH 12 ileus, recovered Plan: She is doing well, no shortness of breath, no cough or congestion, he is on oral diuretics, he is volume status is improving, remains on supplemental oxygen currently at 2 L. complaints of shortness of breath and chest pain. From pulmonary perspective patient stable for discharge to [facility] for rehabilitation today. I performed a history & physical examination of the patient and discussed their management with my nurse practitioner, Jeanette Carter. I reviewed the nurse practitioner's note and agree with the documented findings and plan of care. Lung sounds are positive for diminished breath sounds right lower lobe, with bibasilar crackles. The findings and the impression was discussed with the patient. I attest to the documentation by the nurse practitioner. Time with Patient: Less than 30
== END 2018-09-21 15:40 | DRG 291 ==
LOC: EC 16:33 → 3SCARD 19:22 → 2SICU 09-17 01:26 → 4SSUR 09-20 12:28
PROVIDERS: ADMIT Family Medicine; ATTEND Family Medicine
PROC: 5A09457 Assistance with Respiratory Ventilation, 24-96 Consecutive Hours, Continuous Positive Airway Pressure (ICD-10-PCS; principal; 2018-09-16)
DX: I13.0 Hypertensive heart and chronic kidney disease with heart failure and stage 1 through stage 4 chronic kidney disease, or unspecified chronic kidney disease (principal); I50.33 Acute on chronic diastolic (congestive) heart failure; J96.21 Acute and chronic respiratory failure with hypoxia; J96.22 Acute and chronic respiratory failure with hypercapnia; I48.1 Persistent atrial fibrillation; I69.351 Hemiplegia and hemiparesis following cerebral infarction affecting right dominant side; E66.2 Morbid (severe) obesity with alveolar hypoventilation; K56.7 Ileus, unspecified; I65.21 Occlusion and stenosis of right carotid artery; E11.22 Type 2 diabetes mellitus with diabetic chronic kidney disease; R31.0 Gross hematuria; N18.3 Chronic kidney disease, stage 3 (moderate); I45.10 Unspecified right bundle-branch block; E78.5 Hyperlipidemia, unspecified; N40.1 Benign prostatic hyperplasia with lower urinary tract symptoms; R33.8 Other retention of urine; I25.10 Atherosclerotic heart disease of native coronary artery without angina pectoris; I08.0 Rheumatic disorders of both mitral and aortic valves; I25.2 Old myocardial infarction; R40.2362 Coma scale, best motor response, obeys commands, at arrival to emergency department; R40.2142 Coma scale, eyes open, spontaneous, at arrival to emergency department; R40.2252 Coma scale, best verbal response, oriented, at arrival to emergency department; Z68.38 Body mass index [BMI] 38.0-38.9, adult; Z79.82 Long term (current) use of aspirin; Z79.02 Long term (current) use of antithrombotics/antiplatelets; Z79.4 Long term (current) use of insulin; Z79.899 Other long term (current) drug therapy; Z71.3 Dietary counseling and surveillance; Z87.891 Personal history of nicotine dependence; Z95.1 Presence of aortocoronary bypass graft; Z99.3 Dependence on wheelchair; Z88.2 Allergy status to sulfonamides; Z80.41 Family history of malignant neoplasm of ovary; J98.01 Acute bronchospasm; I27.29 Other secondary pulmonary hypertension; R04.0 Epistaxis
CPT/HCPCS: 36415; 36600; 51702; 71045; 71046; 71250; 74019; 74230; 76770; 80048; 80053; 82805; 83605; 83735; 83880; 84100; 84132; 84443; 84484; 85025; 85610; 85730; 87086; 93005; 93306; 94640; 94660; 94760; 96374; 99291

== ENCOUNTER 2018-10-05 22:31 | Inpatient (IN) | payer MEDICARE ==
--- NOTE | 2018-10-05 23:02 | ED ---
SOB HPI - General Chief Complaint: Shortness of Breath Stated Complaint: SOB Time Seen by Provider: 10/05/18 22:47 Source: EMS Mode of arrival: ambulatory Limitations: no limitations - History of Present Illness Initial Comments: This patient is an 82-year-old man brought from alf to be evaluated for shortness of breath that has come on over the past couple of hours. The patient states she has history of congestive heart failure and that this does feel similar to previous exacerbations. The patient uses 2 L of oxygen by nasal cannula at the alf and states that he was still feeling short of breath despite this area the patient also noted that his legs have seemed swollen more than his usual. He has been wearing compression stockings. Patient denies chest pain. No cough or fever. No change in urination or bowel movements. MD Complaint: shortness of breath -: hour(s) Improves With: oxygen Worsens With: lying flat Known History Of: congestive heart failure Associated Symptoms: lower extremity pain (Leg swelling) Treatments Prior to Arrival: oxygen - Related Data Home Oxygen Therapy: Yes Home Oxygen Amount: 2 Liters Home Medications Medication Instructions Recorded Confirmed Clopidogrel Bisulfate [Clopidogrel] 75 mg PO DAILY 03/03/14 10/05/18 Furosemide 40 mg PO BID 03/03/14 10/05/18 Lisinopril 20 mg PO BID 03/03/14 10/05/18 amLODIPine 5 mg PO BID 03/03/14 10/05/18 INSULIN LISPRO (humaLOG) [humaLOG] 0 units SQ ACHS 09/13/18 10/05/18 Metoprolol Tartrate [Lopressor] 100 mg PO DAILY 09/13/18 10/05/18 Potassium Chloride ER [K-Dur 10] 10 meq PO DAILY 10/05/18 10/05/18 Previous Rx's Medication Instructions Recorded Docusate [Colace] 100 mg PO BID cap 09/21/18 Insuln Asp Prt/Insulin Aspart 28 unit SQ AC-SUPPER vial 09/21/18 [NovoLOG MIX 70-30 VIAL] Insuln Asp Prt/Insulin Aspart 33 unit SQ AC-BRKFST vial 09/21/18 [NovoLOG MIX 70-30 VIAL] Ipratropium-Albuterol Nebulize 3 ml INHALATION RT-QID ampul.neb 09/21/18 [Duoneb 0.5 mg-3 mg/3 ml Soln] Tamsulosin [Flomax] 0.4 mg PO DAILY cap.er.24h 09/21/18 Allergies Allergy/AdvReac Type Severity Reaction Status Date / Time Sulfa (Sulfonamide Allergy Unknown Verified 10/05/18 22:45 Antibiotics) Review of Systems ROS Statement: Those systems with pertinent positive or pertinent negative responses have been documented in the HPI. ROS Other: All systems not noted in ROS Statement are negative. Constitutional: Reports: weakness (Generalized weakness since his previous hospital admission). Denies: fever Respiratory: Reports: dyspnea. Denies: cough, wheezes, hemoptysis, stridor Cardiovascular: Reports: orthopnea, edema. Denies: chest pain, palpitations, syncope Gastrointestinal: Denies: abdominal pain, vomiting, melena Genitourinary: Reports: frequency. Denies: dysuria, hematuria Musculoskeletal: Denies: back pain Skin: Denies: rash Neurological: Reports: weakness (Right-sided weakness as a sequela of stroke years ago). Denies: headache Past Medical History Past Medical History: Heart Failure, CVA/TIA, Diabetes Mellitus, Hyperlipidemia, Hypertension, Myocardial Infarction ([place]) Additional Past Medical History / Comment(s): right side paralysis from first st [facility]. Last Myocardial Infarction Date:: 2011 History of Any Multi-Drug Resistant Organisms: None Reported Past Surgical History: Coronary Bypass/CABG, Heart Catheterization Past Anesthesia/Blood Transfusion Reactions: No Reported Reaction Past Psychological History: No Psychological Hx Reported Smoking Status: Former smoker Past Alcohol Use History: None Reported Past Drug Use History: None Reported - Past Family History Mother Family Medical History: Cancer Additional Family Medical History / Comment(s): of ovarian Cancer General Exam Limitations: no limitations General appearance: alert, in no apparent distress, obese Head exam: Present: atraumatic, normocephalic Eye exam: Present: normal appearance. Absent: scleral icterus, conjunctival injection ENT exam: Present: normal oropharynx Respiratory exam: Present: rales (Lower lobes). Absent: wheezes, rhonchi, stridor, accessory muscle use, decreased breath sounds, prolonged expiratory Cardiovascular Exam: Present: irregular rhythm, gallop. Absent: systolic murmur, diastolic murmur, rubs GI/Abdominal exam: Present: soft. Absent: distended, tenderness, guarding, rebound, rigid, mass Extremities exam: Present: normal capillary refill, pedal edema. Absent: calf tenderness Back exam: Present: normal inspection Neurological exam: Present: alert Skin exam: Present: warm, dry, intact, normal color. Absent: rash Course Vital Signs 10/05/18 10/05/18 10/06/18 22:36 23:30 00:00 Temperature 98.5 F Pulse Rate 75 75 70 Respiratory 28 H 15 20 Rate Blood Pressure 158/103 149/84 157/79 O2 Sat by Pulse 97 97 95 Oximetry 10/06/18 10/06/18 10/06/18 00:30 01:00 01:30 Temperature 98.2 F Pulse Rate 72 71 75 Respiratory 16 15 23 Rate Blood Pressure 147/81 145/87 145/83 O2 Sat by Pulse 97 91 L 91 L Oximetry Medical Decision Making - Lab Data Result diagrams: 10/05/18 23:24 10/09/18 06:46 Lab Results 10/05/18 10/05/18 10/05/18 Range/Units 23:24 23:24 23:24 WBC 8.2 (3.8-10.6) k/uL RBC 4.55 (4.30-5.90) m/uL Hgb 13.0 (13.0-17.5) gm/dL Hct 40.6 (39.0-53.0) % MCV 89.3 (80.0-100.0) fL MCH 28.7 (25.0-35.0) pg MCHC 32.1 (31.0-37.0) g/dL RDW 14.3 (11.5-15.5) % Plt Count 191 (150-450) k/uL Neutrophils % 78 % Lymphocytes % 14 % Monocytes % 5 % Eosinophils % 2 % Basophils % 0 % Neutrophils # 6.4 (1.3-7.7) k/uL Lymphocytes # 1.1 (1.0-4.8) k/uL Monocytes # 0.4 (0-1.0) k/uL Eosinophils # 0.1 (0-0.7) k/uL Basophils # 0.0 (0-0.2) k/uL PT 11.0 (9.0-12.0) sec INR 1.0 (<1.2) APTT 27.0 (22.0-30.0) sec D-Dimer 0.68 H (<0.60) mg/L FEU Sodium 137 (137-145) mmol/L Potassium 4.2 (3.5-5.1) mmol/L Chloride 94 L (98-107) mmol/L Carbon Dioxide 38 H (22-30) mmol/L Anion Gap 5 mmol/L BUN 31 H (9-20) mg/dL Creatinine 1.46 H (0.66-1.25) mg/dL Est GFR (CKD-EPI)AfAm 52 (>60 ml/min/1.73 sqM) Est GFR (CKD-EPI)NonAf 45 (>60 ml/min/1.73 sqM) Glucose 188 H (74-99) mg/dL Plasma Lactic Acid Torsten (0.7-2.0) mmol/L Calcium 8.8 (8.4-10.2) mg/dL Magnesium 1.7 (1.6-2.3) mg/dL Total Bilirubin 0.5 (0.2-1.3) mg/dL AST 14 L (17-59) U/L ALT 28 (21-72) U/L Alkaline Phosphatase 56 (38-126) U/L Troponin I (0.000-0.034) ng/mL NT-Pro-B Natriuret Pep pg/mL Total Protein 6.1 L (6.3-8.2) g/dL Albumin 3.3 L (3.5-5.0) g/dL Urine Color Urine Appearance (Clear) Urine pH (5.0-8.0) Ur Specific Richey (1.001-1.035) Urine Protein (Negative) Urine Glucose (UA) (Negative) Urine Ketones (Negative) Urine Blood (Negative) Urine Nitrite (Negative) Urine Bilirubin (Negative) Urine Urobilinogen (<2.0) mg/dL Ur Leukocyte Esterase (Negative) Urine RBC (0-5) /hpf Hyaline Casts (0-2) /lpf Urine Mucus (None) /hpf 10/05/18 10/05/18 10/05/18 Range/Units 23:24 23:24 23:24 WBC (3.8-10.6) k/uL RBC (4.30-5.90) m/uL Hgb (13.0-17.5) gm/dL Hct (39.0-53.0) % MCV (80.0-100.0) fL MCH (25.0-35.0) pg MCHC (31.0-37.0) g/dL RDW (11.5-15.5) % Plt Count (150-450) k/uL Neutrophils % % Lymphocytes % % Monocytes % % Eosinophils % % Basophils % % Neutrophils # (1.3-7.7) k/uL Lymphocytes # (1.0-4.8) k/uL Monocytes # (0-1.0) k/uL Eosinophils # (0-0.7) k/uL Basophils # (0-0.2) k/uL PT (9.0-12.0) sec INR (<1.2) APTT (22.0-30.0) sec D-Dimer (<0.60) mg/L FEU Sodium (137-145) mmol/L Potassium (3.5-5.1) mmol/L Chloride (98-107) mmol/L Carbon Dioxide (22-30) mmol/L Anion Gap mmol/L BUN (9-20) mg/dL Creatinine (0.66-1.25) mg/dL Est GFR (CKD-EPI)AfAm (>60 ml/min/1.73 sqM) Est GFR (CKD-EPI)NonAf (>60 ml/min/1.73 sqM) Glucose (74-99) mg/dL Plasma Lactic Acid Torsten (0.7-2.0) mmol/L Calcium (8.4-10.2) mg/dL Magnesium (1.6-2.3) mg/dL Total Bilirubin (0.2-1.3) mg/dL AST (17-59) U/L ALT (21-72) U/L Alkaline Phosphatase (38-126) U/L Troponin I <0.012 (0.000-0.034) ng/mL NT-Pro-B Natriuret Pep 2590 pg/mL Total Protein (6.3-8.2) g/dL Albumin (3.5-5.0) g/dL Urine Color Light Yellow Urine Appearance Clear (Clear) Urine pH 5.5 (5.0-8.0) Ur Specific Richey 1.007 (1.001-1.035) Urine Protein 2+ H (Negative) Urine Glucose (UA) Negative (Negative) Urine Ketones Negative (Negative) Urine Blood Negative (Negative) Urine Nitrite Negative (Negative) Urine Bilirubin Negative (Negative) Urine Urobilinogen <2.0 (<2.0) mg/dL Ur Leukocyte Esterase Negative (Negative) Urine RBC <1 (0-5) /hpf Hyaline Casts 4 H (0-2) /lpf Urine Mucus Rare H (None) /hpf 10/05/18 Range/Units 23:24 WBC (3.8-10.6) k/uL RBC (4.30-5.90) m/uL Hgb (13.0-17.5) gm/dL Hct (39.0-53.0) % MCV (80.0-100.0) fL MCH (25.0-35.0) pg MCHC (31.0-37.0) g/dL RDW (11.5-15.5) % Plt Count (150-450) k/uL Neutrophils % % Lymphocytes % % Monocytes % % Eosinophils % % Basophils % % Neutrophils # (1.3-7.7) k/uL Lymphocytes # (1.0-4.8) k/uL Monocytes # (0-1.0) k/uL Eosinophils # (0-0.7) k/uL Basophils # (0-0.2) k/uL PT (9.0-12.0) sec INR (<1.2) APTT (22.0-30.0) sec D-Dimer (<0.60) mg/L FEU Sodium (137-145) mmol/L Potassium (3.5-5.1) mmol/L Chloride (98-107) mmol/L Carbon Dioxide (22-30) mmol/L Anion Gap mmol/L BUN (9-20) mg/dL Creatinine (0.66-1.25) mg/dL Est GFR (CKD-EPI)AfAm (>60 ml/min/1.73 sqM) Est GFR (CKD-EPI)NonAf (>60 ml/min/1.73 sqM) Glucose (74-99) mg/dL Plasma Lactic Acid Torsten 0.8 (0.7-2.0) mmol/L Calcium (8.4-10.2) mg/dL Magnesium (1.6-2.3) mg/dL Total Bilirubin (0.2-1.3) mg/dL AST (17-59) U/L ALT (21-72) U/L Alkaline Phosphatase (38-126) U/L Troponin I (0.000-0.034) ng/mL NT-Pro-B Natriuret Pep pg/mL Total Protein (6.3-8.2) g/dL Albumin (3.5-5.0) g/dL Urine Color Urine Appearance (Clear) Urine pH (5.0-8.0) Ur Specific Richey (1.001-1.035) Urine Protein (Negative) Urine Glucose (UA) (Negative) Urine Ketones (Negative) Urine Blood (Negative) Urine Nitrite (Negative) Urine Bilirubin (Negative) Urine Urobilinogen (<2.0) mg/dL Ur Leukocyte Esterase (Negative) Urine RBC (0-5) /hpf Hyaline Casts (0-2) /lpf Urine Mucus (None) /hpf - EKG Data -: EKG Interpreted by Ia EKG shows normal: axis (Normal), intervals (QRS duration 150 ms, consistent with a right bundle-branch block. MS and QTc both normal), QRS complexes (Right bundle-branch block pattern) Rate: normal (Rate 83 bpm) Interpretation: other (Underlying rhythm appears to be atrial fibrillation.) Disposition Clinical Impression: Pulmonary edema cardiac cause, Heart failure Disposition: ADMITTED IP TO THIS HOSP Condition: Poor Is patient prescribed a controlled substance at d/c from ED?: No
--- NOTE | 2018-10-05 23:38 | XR ---
EXAM: XR Chest, 1 View CLINICAL HISTORY: ITS.REASON XR Reason: dyspnea TECHNIQUE: Frontal view of the chest. COMPARISON: 09/18/18 FINDINGS: Elevated right hemidiaphragm again seen. Cannot exclude right pleural effusion and/or lower lobe consolidation. IMPRESSION: See above
[2018-10-05 23:44] LABS: Basophils % (A) 0 %; Eosinophils # (A) 0.1 k/uL (0-0.7); Eosinophils % (A) 2 %; HCT 40.6 % (39.0-53.0); Lymphocytes # (A) 1.1 k/uL (1.0-4.8); Lymphocytes % (A) 14 %; MCH 28.7 pg (25.0-35.0); MCHC 32.1 g/dL (31.0-37.0); MCV 89.3 fL (80.0-100.0); Mean Platelet Volume 6.6; Monocytes # (A) 0.4 k/uL (0-1.0); Monocytes % (A) 5 %; Neutrophils # (A) 6.4 k/uL (1.3-7.7); Neutrophils % (A) 78 %; Platelet Count 191 k/uL (150-450); RBC 4.55 m/uL (4.30-5.90); RDW 14.3 % (11.5-15.5); WBC 8.2 k/uL (3.8-10.6)
[2018-10-05 23:47] LABS: Appearance,Urine Clear (Clear); Bilirubin,Urine Negative (Negative); Blood,Urine Negative (Negative); Color,Urine Light Yellow; Glucose,Urine (UA) Negative (Negative); Hyaline Casts,Urine 4 /lpf (0-2); Ketones,Urine Negative (Negative); Leukocyte Esterase,Urine Negative (Negative); Mucus,Urine Rare /hpf; Nitrite,Urine Negative (Negative); PH, Urine 5.5 (5.0-8.0); Protein,Urine 2+ (Negative); RBC,Urine <1 /hpf (0-5); Specific Gravity,Urine 1.007 (1.001-1.035); Urobilinogen,Urine <2.0 mg/dL (<2.0)
[2018-10-05 23:53] LABS: Albumin 3.3 g/dL (3.5-5.0); Calcium 8.8 mg/dL (8.4-10.2); Magnesium 1.7 mg/dL (1.6-2.3); Potassium 4.2 mmol/L (3.5-5.1); Total Bilirubin 0.5 mg/dL (0.2-1.3); Total Protein 6.1 g/dL (6.3-8.2)
[2018-10-06 00:05] LABS: D-Dimer 0.68 mg/L FEU (<0.60)
[2018-10-06] MEDS ORDERED: LEVOFLOXACIN 750MG-D5W PMX 750 MG in DEXTROSE/WATER 1 150ML.BAG IVPB STA (01:01)
[2018-10-06] MEDS ORDERED: PNEUMONIA PROTOCOL UTILIZED 1 EACH MISC PO PRN (01:01)
[2018-10-06] MEDS ORDERED: PIPERACILLIN-TAZOBACTAM 3.375 GM in SODIUM CHLORIDE 0.9% 100 ML IVPB STA (01:01)
[2018-10-06] MEDS: IPRATROPIUM-ALBUTEROL 3 ML NEB INHALATION SCH ×4 (07:08→19:26)
[2018-10-06] MEDS ORDERED: INSULN ASP PRT/INSULIN ASPART 100 UNIT/ML 10 ML VIAL SQ SCH (07:30)
[2018-10-06 07:50] LABS: Glucose,Whole Blood 163 mg/dL (75-99)
[2018-10-06] MEDS: DOCUSATE 100 MG CAP PO SCH ×2 (08:59→21:04)
[2018-10-06] MEDS: amLODIPine 5 MG TAB PO SCH ×2 (08:59→21:04)
[2018-10-06] MEDS: POTASSIUM CHLORIDE ER 10 MEQ TAB.ER.PRT PO SCH (08:59)
[2018-10-06] MEDS ORDERED: FUROSEMIDE 40 MG TAB PO SCH (09:00)
[2018-10-06] MEDS: METOPROLOL TARTRATE 50 MG TAB PO SCH (09:00)
[2018-10-06] MEDS: ATORVASTATIN 40 MG TAB PO SCH (09:00)
[2018-10-06] MEDS: LISINOPRIL 20 MG TAB PO SCH ×2 (09:00→21:04)
[2018-10-06] MEDS: CLOPIDOGREL 75 MG TAB PO SCH (09:00)
[2018-10-06] MEDS ORDERED: NON-FORMULARY DRUG (Omega-3 Fatty Acids/Fish Oil [Fish Oil 1,000 Mg Softgel] 1,000 MG) PO SCH (09:00)
[2018-10-06] MEDS: TAMSULOSIN 0.4 MG CAP.ER.24H PO SCH (09:00)
[2018-10-06] MEDS ORDERED: HEPARIN SODIUM,PORCINE 5,000 UNIT/ML 1 ML VIAL SQ SCH (09:00)
[2018-10-06] MEDS: INSULN ASP PRT/INSULIN ASPART 100 UNIT/ML 10 ML VIAL SQ SCH ×2 (09:02→17:04)
[2018-10-06] MEDS ORDERED: PIPERACILLIN-TAZOBACTAM 3.375 GM in SODIUM CHLORIDE 0.9% 100 ML IVPB SCH (11:00)
[2018-10-06 11:39] LABS: Glucose,Whole Blood 128 mg/dL (75-99)
[2018-10-06] MEDS: MULTIVITAMINS, THERA 1 EACH TAB PO SCH (11:42)
[2018-10-06] MEDS: FUROSEMIDE 10 MG/ML 4 ML VIAL IV SCH ×2 (11:44→21:05)
--- NOTE | 2018-10-06 13:04 | P.HPIM ---
History of Present Illness Chief Complaint: Shortness of breath Very pleasant 10-year-old gentleman with a past medical history significant for A. elpidio comes in with complaints of shortness of breath. Patient says that he's been having shortness of breath for the past 2 days got worse last night he said that he's not been able to sleep flat on the bed for long time. He otherwise does not complain of any chest pain, racing heart, no abdominal pain, nausea and vomiting, or diarrhea constipation, no tingling numbness on his extremities, no itch or rash. Patient also said that he's been having swelling of her lower extremities which is more than his normal. ER course-patient's vitals were stable. Labwork was initial sodium 137 potassium 4.2 bun 31 creatinine 1.46 WBC 8.2 hemoglobin 13.0 platelets 191 d- dimer 0.68. Chest x-ray shows right pleural effusion and her or right lower lobe pneumonia. 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 macular degeneration Last Myocardial Infarction Date:: 2011 History of Any Multi-Drug Resistant Organisms: None Reported Past Surgical History: Coronary Bypass/CABG, Heart Catheterization Past Anesthesia/Blood Transfusion Reactions: No Reported Reaction Past Psychological History: Anxiety Smoking Status: Former smoker Past Alcohol Use History: None Reported Past Drug Use History: None Reported - Past Family History Mother Family Medical History: Cancer Additional Family Medical History / Comment(s): of ovarian Cancer Medications and Allergies Home Medications Medication Instructions Recorded Confirmed Type Clopidogrel Bisulfate [Clopidogrel] 75 mg PO DAILY 03/03/14 10/05/18 History Furosemide 40 mg PO BID 03/03/14 10/05/18 History Lisinopril 20 mg PO BID 03/03/14 10/05/18 History amLODIPine 5 mg PO BID 03/03/14 10/05/18 History Multivitamins, Thera [Multivitamin 1 each PO DAILY@1200 #30 tab 03/06/14 10/05/18 Rx (formulary)] Atorvastatin [Lipitor] 40 mg PO DAILY 09/13/18 10/05/18 History INSULIN LISPRO (humaLOG) [humaLOG] 0 units SQ ACHS 09/13/18 10/05/18 History Metoprolol Tartrate [Lopressor] 100 mg PO DAILY 09/13/18 10/05/18 History [place]-3 Fatty Acids/Fish Oil [Fish 1,000 mg PO DAILY 09/13/18 10/05/18 History Oil 1,000 mg Softgel] Docusate [Colace] 100 mg PO BID cap 09/21/18 10/05/18 Rx Insuln Asp Prt/Insulin Aspart 28 unit SQ AC-SUPPER vial 09/21/18 10/05/18 Rx [NovoLOG MIX 70-30 VIAL] Insuln Asp Prt/Insulin Aspart 33 unit SQ AC-BRKFST vial 09/21/18 10/05/18 Rx [NovoLOG MIX 70-30 VIAL] Ipratropium-Albuterol Nebulize 3 ml INHALATION RT-QID ampul.neb 09/21/18 10/05/18 Rx [Duoneb 0.5 mg-3 mg/3 ml Soln] Rivaroxaban [Xarelto] 15 mg PO W/SUPPER tab 09/21/18 10/05/18 Rx Tamsulosin [Flomax] 0.4 mg PO DAILY cap.er.24h 09/21/18 10/05/18 Rx Potassium Chloride ER [K-Dur 10] 10 meq PO DAILY 10/05/18 10/05/18 History Allergies Allergy/AdvReac Type Severity Reaction Status Date / Time Sulfa (Sulfonamide Allergy Unknown Verified 10/05/18 22:45 Antibiotics) Physical Exam Vitals: Vital Signs Temp Pulse Pulse Resp BP BP Pulse Ox 10/06/18 11:06 72 10/06/18 10:54 70 10/06/18 07:22 72 10/06/18 07:09 71 90 L 10/06/18 07:00 98.1 F 84 20 175/85 89 L 10/06/18 02:29 98.2 F 64 18 164/82 90 L 10/06/18 01:30 98.2 F 75 23 145/83 91 L 10/06/18 01:00 71 15 145/87 91 L 10/06/18 00:30 72 16 147/81 97 10/06/18 00:00 70 20 157/79 95 10/05/18 23:30 75 15 149/84 97 10/05/18 22:36 98.5 F 75 28 H 158/103 97 Intake and Output 04/25/19 04/26/19 04/26/19 22:59 06:59 14:59 Intake Total 240 Output Total 275 400 Balance -275 -160 Intake: Oral 240 Output: Urine 275 400 Other: Voiding Method Urinal # Voids 1 Weight 122.47 kg 126.5 kg Results CBC & Chem 7: 10/05/18 23:24 10/05/18 23:24 Labs: Abnormal Lab Results - Last 24 Hours (Table) 10/05/18 10/05/18 10/05/18 Range/Units 23:24 23:24 23:24 D-Dimer 0.68 H (<0.60) mg/L FEU Chloride 94 L (98-107) mmol/L Carbon Dioxide 38 H (22-30) mmol/L BUN 31 H (9-20) mg/dL Creatinine 1.46 H (0.66-1.25) mg/dL Glucose 188 H (74-99) mg/dL POC Glucose (mg/dL) (75-99) mg/dL AST 14 L (17-59) U/L Total Protein 6.1 L (6.3-8.2) g/dL Albumin 3.3 L (3.5-5.0) g/dL Urine Protein 2+ H (Negative) Hyaline Casts 4 H (0-2) /lpf Urine Mucus Rare H (None) /hpf 10/06/18 10/06/18 Range/Units 07:37 11:27 D-Dimer (<0.60) mg/L FEU Chloride (98-107) mmol/L Carbon Dioxide (22-30) mmol/L BUN (9-20) mg/dL Creatinine (0.66-1.25) mg/dL Glucose (74-99) mg/dL POC Glucose (mg/dL) 163 H 128 H (75-99) mg/dL AST (17-59) U/L Total Protein (6.3-8.2) g/dL Albumin (3.5-5.0) g/dL Urine Protein (Negative) Hyaline Casts (0-2) /lpf Urine Mucus (None) /hpf Thrombosis Risk Factor Assmnt - Choose All That Apply Each Factor Represents 1 point: Obesity (BMI >25), Serious lung disease incl. pneumonia (< 1month), Swollen legs (current) Other Risk Factors: Yes Each Risk Factor Represents 3 Points: Age 75 years or older Thrombosis Risk Factor Assessment Total Risk Factor Score: 6 Thrombosis Risk Factor Assessment Level: High Risk Assessment and Plan Assessment: CHF exacerbation Rule out pneumonia A. fib on anti-coagulation Hypertension Diabetes Hyperlipidemia History of CAD History of CVA/TIA Plan - We'll admit the patient to stepdown - Continue Lasix. He has +3 pitting edema bilateral lower extremities. - Cardiology is on board - Is also started on Levaquin by ER and pulmonology on board - Continue rest of the home medications - DVT and GI prophylaxis - We'll order for lab work in the morning - Expected length of stay more than 2 midnights - Patient is full code Time with Patient: Greater than 30
--- NOTE | 2018-10-06 13:53 | P.CRDCN ---
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 He does not follow regularly with a psychological operations officer however was just seen here by Dr. Mullins earlier this month and haven't made it to their follow up visit yet. He was discharged to a rehab facility 09/21/2018 after being treated for heart failure. He states overall he has been feeling good until last night he became acutely short of breath. Chest x-ray obtained on admission reveals elevated right hemidiaphragm, right pleural effusion and right lower lobe consolidation. He has been started on IV antibiotics. She is seen and examined sitting up in the chair in no acute distress. He states his breathing is still labored but does feel better than it did initially last evening. He states he feels like he did earlier this month when he came in with heart failure. He does have ongoing lower extremity edema as well as orthopnea. He denies symptoms of chest discomfort, palpitations, dizziness, nausea, vomiting or diaphoresis. EKG reveals atrial fibrillation with a heart rate of 83 with a right bundle branch block. Laboratory data reviewed, WBC 8.2, hemoglobin 13, platelets 191, d-dimer 0.68, sodium 137, potassium 4.2, creatinine 1.46, GFR 45, magnesium 1.7, cardiac enzymes negative 1, NT proBNP 2590. Current cardiac medications include atorvastatin 40 mg daily, Lopressor 100 mg daily, amlodipine 5 mg twice a day, Lasix 40 mg twice a day, lisinopril 20 mg twice a day, Xarelto 15 mg daily and Plavix 75 mg daily he takes secondary to CVA. Most recent echocardiogram reveals preserved left ventricular systolic function with ejection fraction 55-60%, mild aortic stenosis with a mean gradient of 9 mmHg, moderate mitral calcification, mild mitral regurgitation, mild tricuspid regurgitation and mild pulmonary hypertension with an RVSP of 50 mmHg. At the time of my exam: CONSTITUTIONAL: Denies fever. Denies chills. EYES: Denies blurred vision. Denies vision changes. Denies eye pain. EARS, NOSE, MOUTH & THROAT: Denies headache. Denies sore throat. Denies ear pain. CARDIOVASCULAR: Denies chest pain. Complains of shortness of breath. Complains of orthopnea. Denies PND. Denies palpitations. RESPIRATORY: Complains of cough. GASTROINTESTINAL: Denies abdominal pain. Denies diarrhea. Denies constipation. Denies nausea. Denies vomiting. MUSCULOSKELETAL: Denies myalgias. INTEGUMENTARY: Denies pruitis. Denies rash. NEUROLOGIC: Denies numbness. Denies tingling. Denies weakness. PSYCHIATRIC: Denies anxiety. Denies depression. ENDOCRINE: Denies fatigue. Denies weight change. Denies polydipsia. Denies polyurina. GENITOURINARY: Denies burning, hematuria or urgency with micturation. HEMATOLOGIC: Denies history of anemia. Denies bleeding. Blood pressure 175/85 heart rate 84 afebrile maintaining oxygen saturation on nasal cannula GENERAL: This is a 82-year-old male in no apparent distress at the time of my examination. HEENT: Head is atraumatic, normocephalic. Pupils are equal, round. Sclerae anicteric. Conjunctivae are clear. Mucous membranes of the mouth are moist. Neck is supple. There is mild jugular venous distention. No carotid bruit is heard. LUNGS: Bibasilar rales, scattered rhonchi, no wheezes. No chest wall tenderness is noted on palpation or with deep breathing. HEART: Irregular rate and rhythm with systolic ejection murmur at the base, no rubs or gallops. S1 and S2 heard. ABDOMEN: Soft, nontender. Bowel sounds are heard. No organomegaly noted. EXTREMITIES: 2+ bilateral lower extremity pitting edema up to the knee and no calf tenderness noted. GERI hose in place. VASCULAR: Radial and dorsalis pedis pulses palpated, no evidence of clubbing. NEUROLOGIC: Patient is awake, alert and oriented x3. ASSESSMENT Acute on chronic diastolic heart failure Suspected pneumonia on IV antibiotics Chronic persistent atrial fibrillation on long-term anticoagulation Hypertension Dyslipidemia Diabetes mellitus Chronic kidney disease, GFR 45, stage 3a History of CVA in the past 2 History of coronary artery disease status post bypass grafting, exact details are unavailable. PLAN Initiate on IV Lasix 40 mg twice a day. Continue potassium supplementation daily. Follow electrolytes and kidney function daily. Document accurate intake and output as well his daily weights. We will continue to follow and make recommendations accordingly. Thank you kindly for this consultation. Nurse Practitioner note has been reviewed, I agree with a documented findings and plan of care. Patient was seen and examined. 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 macular degeneration Last Myocardial Infarction Date:: 2011 History of Any Multi-Drug Resistant Organisms: None Reported Past Surgical History: Coronary Bypass/CABG, Heart Catheterization Past Anesthesia/Blood Transfusion Reactions: No Reported Reaction Past Psychological History: Anxiety Smoking Status: Former smoker Past Alcohol Use History: None Reported Past Drug Use History: None Reported - Past Family History Mother Family Medical History: Cancer Additional Family Medical History / Comment(s): of ovarian Cancer Medications and Allergies Home Medications Medication Instructions Recorded Confirmed Type Clopidogrel Bisulfate [Clopidogrel] 75 mg PO DAILY 03/03/14 10/05/18 History Furosemide 40 mg PO BID 03/03/14 10/05/18 History Lisinopril 20 mg PO BID 03/03/14 10/05/18 History amLODIPine 5 mg PO BID 03/03/14 10/05/18 History Multivitamins, Thera [Multivitamin 1 each PO DAILY@1200 #30 tab 03/06/14 10/05/18 Rx (formulary)] Atorvastatin [Lipitor] 40 mg PO DAILY 09/13/18 10/05/18 History INSULIN LISPRO (humaLOG) [humaLOG] 0 units SQ ACHS 09/13/18 10/05/18 History Metoprolol Tartrate [Lopressor] 100 mg PO DAILY 09/13/18 10/05/18 History [place]-3 Fatty Acids/Fish Oil [Fish 1,000 mg PO DAILY 09/13/18 10/05/18 History Oil 1,000 mg Softgel] Docusate [Colace] 100 mg PO BID cap 09/21/18 10/05/18 Rx Insuln Asp Prt/Insulin Aspart 28 unit SQ AC-SUPPER vial 09/21/18 10/05/18 Rx [NovoLOG MIX 70-30 VIAL] Insuln Asp Prt/Insulin Aspart 33 unit SQ AC-BRKFST vial 09/21/18 10/05/18 Rx [NovoLOG MIX 70-30 VIAL] Ipratropium-Albuterol Nebulize 3 ml INHALATION RT-QID ampul.neb 09/21/18 10/05/18 Rx [Duoneb 0.5 mg-3 mg/3 ml Soln] Rivaroxaban [Xarelto] 15 mg PO W/SUPPER tab 09/21/18 10/05/18 Rx Tamsulosin [Flomax] 0.4 mg PO DAILY cap.er.24h 09/21/18 10/05/18 Rx Potassium Chloride ER [K-Dur 10] 10 meq PO DAILY 10/05/18 10/05/18 History Allergies Allergy/AdvReac Type Severity Reaction Status Date / Time Sulfa (Sulfonamide Allergy Unknown Verified 10/05/18 22:45 Antibiotics) Physical Exam Vitals: Vital Signs Temp Pulse Pulse Resp BP BP Pulse Ox 10/06/18 11:06 72 10/06/18 10:54 70 10/06/18 07:22 72 10/06/18 07:09 71 90 L 10/06/18 07:00 98.1 F 84 20 175/85 89 L 10/06/18 02:29 98.2 F 64 18 164/82 90 L 10/06/18 01:30 98.2 F 75 23 145/83 91 L 10/06/18 01:00 71 15 145/87 91 L 10/06/18 00:30 72 16 147/81 97 10/06/18 00:00 70 20 157/79 95 10/05/18 23:30 75 15 149/84 97 10/05/18 22:36 98.5 F 75 28 H 158/103 97 Intake and Output 10/05/18 10/06/18 10/06/18 22:59 06:59 14:59 Intake Total 240 Output Total 275 400 Balance -275 -160 Intake: Oral 240 Output: Urine 275 400 Other: Voiding Method Urinal # Voids 1 Weight 122.47 kg 126.5 kg Results 10/05/18 23:24 10/05/18 23:24 Cardiac Enzymes 10/05/18 10/05/18 Range/Units 23:24 23:24 AST 14 L (17-59) U/L Troponin I <0.012 (0.000-0.034) ng/mL Coagulation 10/05/18 Range/Units 23:24 PT 11.0 (9.0-12.0) sec APTT 27.0 (22.0-30.0) sec CBC 10/05/18 Range/Units 23:24 WBC 8.2 (3.8-10.6) k/uL RBC 4.55 (4.30-5.90) m/uL Hgb 13.0 (13.0-17.5) gm/dL Hct 40.6 (39.0-53.0) % Plt Count 191 (150-450) k/uL Comprehensive Metabolic Panel 10/05/18 Range/Units 23:24 Sodium 137 (137-145) mmol/L Potassium 4.2 (3.5-5.1) mmol/L Chloride 94 L (98-107) mmol/L Carbon Dioxide 38 H (22-30) mmol/L BUN 31 H (9-20) mg/dL Creatinine 1.46 H (0.66-1.25) mg/dL Glucose 188 H (74-99) mg/dL Calcium 8.8 (8.4-10.2) mg/dL AST 14 L (17-59) U/L ALT 28 (21-72) U/L Alkaline Phosphatase 56 (38-126) U/L Total Protein 6.1 L (6.3-8.2) g/dL Albumin 3.3 L (3.5-5.0) g/dL Current Medications Generic Name Dose Route Start Last Admin Trade Name Freq PRN Reason Stop Dose Admin Albuterol/Ipratropium 3 ml 10/06/18 08:00 10/06/18 10:54 Duoneb 0.5 Mg-3 Mg/3 Ml Soln INHALATION 3 ml RT-QID DUNIA Administration Amlodipine Besylate 5 mg 10/06/18 09:00 10/06/18 08:59 Norvasc PO 5 mg BID DUNIA Administration Atorvastatin Calcium 40 mg 10/06/18 09:00 10/06/18 09:00 Lipitor PO 40 mg DAILY DUNIA Administration Clopidogrel Bisulfate 75 mg 10/06/18 09:00 10/06/18 09:00 Plavix PO 75 mg DAILY DUNIA Administration Docusate Sodium 100 mg 10/06/18 09:00 10/06/18 08:59 Colace PO 100 mg BID DUNIA Administration Furosemide 40 mg 10/06/18 10:45 10/06/18 11:44 Lasix IV 40 mg Q12HR DUNIA Administration Piperacillin Sod/Tazobactam 100 mls @ 25 mls/hr 10/06/18 11:00 10/06/18 11:43 Sod 3.375 gm/ Sodium Chloride IVPB 25 mls/hr Q8H DUNIA Administration Insulin Aspart 28 unit 10/06/18 17:30 Novolog Mix 70-30 Vial SQ AC-SUPPER DUNIA Insulin Aspart 33 unit 10/06/18 07:30 10/06/18 09:02 Novolog Mix 70-30 Vial SQ 33 unit AC-BRKFST DUNIA Administration Insulin Aspart 0 unit 10/06/18 17:30 Novolog SQ ACHS REPLACED BY [facility] Protocol Levofloxacin 750 mg 10/07/18 21:00 Levaquin PO Q48H DUNIA Lisinopril 20 mg 10/06/18 09:00 10/06/18 09:00 Zestril PO 20 mg BID DUNIA Administration Metoprolol Tartrate 100 mg 10/06/18 09:00 10/06/18 09:00 Lopressor PO 100 mg DAILY DUNIA Administration Miscellaneous Information 1 each 10/06/18 01:01 Pneumonia Protocol Utilized PO ONCE PRN Per Protocol Multivitamins 1 each 10/06/18 12:00 10/06/18 11:42 Theragran PO Not Given DAILY@1200 REPLACED BY [facility] Potassium Chloride 10 meq 10/06/18 09:00 10/06/18 08:59 K-Dur 10 PO 10 meq DAILY DUNIA Administration Rivaroxaban 15 mg 10/06/18 17:30 Xarelto PO W/SUPPER DUNIA Tamsulosin HCl 0.4 mg 10/06/18 09:00 10/06/18 09:00 Flomax PO 0.4 mg DAILY DUNIA Administration Intake and Output 10/05/18 10/06/18 10/06/18 22:59 06:59 14:59 Intake Total 240 Output Total 275 400 Balance -275 -160 Intake: Oral 240 Output: Urine 275 400 Other: Voiding Method Urinal # Voids 1 Weight 122.47 kg 126.5 kg 10/05/18 23:24 10/05/18 23:24
--- NOTE | 2018-10-06 16:05 | CONS ---
CONSULTATION PULMONARY/CRITICAL CARE CONSULTATION: DATE OF CONSULTATION: 10/06/2018 This is an 82-year-old gentleman whom I just recently saw. He was in the hospital back in early September. At that time I saw him for pulmonary edema and ICU management. The patient apparently comes into the hospital via EMS. He comes in with complaints of shortness of breath. He is an 82-year-old gentleman who resides at the [facility]. I believe he is at [facility]. There he sees Dr. Fuchs. Apparently he has been complaining of increasing shortness of breath over the last couple of hours. He is not a particularly good historian. He has had some weight gain, and in addition he has had some minimal cough. In addition he states his ankles and legs have gotten more swollen. He typically uses oxygen at 2 L by nasal cannula. The patient states that this is similar to when he was here the last time when he had heart failure/fluid overload. He is with a family member. Family member confirms his history. The patient is not a particularly good historian but does seem to be relatively active in regard to the fluid retention, weight gain, shortness of breath, dry cough, ankle edema, etc. When he was here last in the ICU, he had acute on chronic diastolic heart failure with an acute exacerbation requiring BiPAP therapy for worsening oxygenation and worsening hypercapnia. In addition, I thought his hypercapnic respiratory failure likely related to either sleep apnea syndrome and/or pickwickian syndrome. In addition, he has a history of diabetes, obesity, hypertension, hyperlipidemia, CVA with right-sided weakness, myocardial infarction and remote minimal tobacco history. CURRENT MEDICATIONS: His current medications as listed at the [facility] include: 1. Plavix. 2. Lasix. 3. Lisinopril. 4. Amlodipine. 5. Lipitor. 6. Insulin. 7. Metoprolol. 8. Fish oil. 9. Potassium chloride. 10.Multivitamins. 11.Colace. 12.DuoNeb. 13.Xarelto. 14.Flomax. ALLERGIES: SULFA. MEDICAL HISTORY: Positive for: 1. Acute on chronic diastolic heart failure with recent admission for hypoxemic respiratory failure requiring BiPAP therapy. 2. History of chronic hypercapnic respiratory failure, likely secondary to pickwickian syndrome as well as possible sleep apnea syndrome. 3. CVA with right-sided weakness. 4. Diabetes mellitus. 5. Hyperlipidemia. 6. Hypertension. 7. Myocardial infarction. 8. He also has remote tobacco history. 9. He also suffers from obesity. SURGICAL HISTORY: Surgical history includes bypass grafting and heart catheterization. SOCIAL HISTORY: Positive for remote tobacco history. No alcohol use or illicit drug use. FAMILY HISTORY: Positive for cancer in his mother; I believe it was ovarian cancer. He denies any alcohol or illicit drug use. OCCUPATIONAL HISTORY: Noncontributory. REVIEW OF SYSTEMS: CONSTITUTIONAL: Weakness and fatigue. NEUROLOGIC: Negative. HEENT: Negative. CARDIOVASCULAR: Negative. PULMONARY: Shortness of breath, dry non-productive cough. GI: Negative. : Negative. RHEUMATOLOGIC: Negative. IMMUNOLOGIC: Negative. ENDOCRINOLOGIC: Negative. DERMATOLOGIC: Negative. Additionally, he does complain of weight gain, lower extremity edema and some orthopnea. PHYSICAL EXAMINATION: CURRENT VITAL SIGNS: Current vital signs include temperature 98, heart rate 72, respiratory rate 20, blood pressure 122/51, mean 74. Four-liter saturation of 88%. GENERAL: Appears in no acute distress. Sitting up in the chair. No conversational dyspnea. No audible wheezing. No use of accessory muscles. HEENT EXAMINATION: Grossly unremarkable. Mucous membranes are moist. Nasal oxygen noted. NECK: Supple. Full range of motion. No adenopathy. Neck veins are flat. CARDIOVASCULAR EXAMINATION: Distant heart sounds. S1, S2 normal. Heart rate about 70 beats per minute. No distinct murmur noted. No S3, S4. LUNGS: Bibasilar crackles. Breath sounds are diminished throughout. No rhonchi or wheezes. He does not take deep breaths. ABDOMEN: Obese. Bowel sounds are heard. EXTREMITIES: Intact. There is 1+ edema. It is pitting. SKIN: Without rash. NEUROLOGIC EXAMINATION: Some right-sided weakness. IMAGING/LABS: Chest x-ray in my opinion shows evidence of CHF with bilateral effusions and elevated right hemidiaphragm. Labs are reviewed. CBC is completely normal. PT/INR normal. PTT normal. D-dimer 0.68. Sodium 137, potassium 4.2, chloride 94, CO2 38. Anion gap is 5. BUN and creatinine were 31 and 1.46. N-terminal proBNP 2590. Troponin was less than 0.012. The rest of the comprehensive metabolic profile was normal. Urine looks pretty normal. Medications are reviewed. He is on updrafts and Levaquin and Zosyn and IV Lasix 40 q.12. ASSESSMENT: 1. Acute on chronic diastolic congestive heart failure with acute exacerbation with resulting hypoxemia. 2. Chronic hypercapnic respiratory failure, likely related to underlying sleep apnea syndrome and/or pickwickian syndrome. 3. 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 4. Obesity. 5. History of diabetes mellitus. 6. History of hypertension. 7. Hyperlipidemia. 8. Previous history of cerebrovascular accident with right-sided weakness. 9. History of myocardial infarction. PLAN: Therapy seems to be appropriate. I do not believe he needs all these antibiotics. We will cut back on them at this time. I will order a procalcitonin level. The rest of the medications look appropriate. He should be diuresed. Updrafts should help a bit. No additional recommendations are made. I do not believe he has an active significant infection at this time. MMODL / IJN: [id number] /
[2018-10-06 16:50] LABS: Glucose,Whole Blood 65 mg/dL (75-99)
[2018-10-06] MEDS: INSULIN ASPART (NovoLOG) 100 UNIT/ML VIAL SQ SCH ×2 (17:04→21:04)
[2018-10-06] MEDS: RIVAROXABAN 15 MG TAB PO SCH (17:06)
[2018-10-06 17:09] LABS: Glucose,Whole Blood 76 mg/dL (75-99)
[2018-10-06 20:39] LABS: Glucose,Whole Blood 160 mg/dL (75-99)
[2018-10-06] MEDS ORDERED: LEVOFLOXACIN 750 MG TAB PO SCH (21:00)
[2018-10-07] MEDS: FUROSEMIDE 10 MG/ML 4 ML VIAL IV SCH ×3 (07:25→23:00)
[2018-10-07] MEDS: INSULN ASP PRT/INSULIN ASPART 100 UNIT/ML 10 ML VIAL SQ SCH ×2 (07:25→17:19)
[2018-10-07] MEDS: LISINOPRIL 20 MG TAB PO SCH (07:25)
[2018-10-07] MEDS: METOPROLOL TARTRATE 50 MG TAB PO SCH (07:25)
[2018-10-07] MEDS: INSULIN ASPART (NovoLOG) 100 UNIT/ML VIAL SQ SCH ×4 (07:25→20:21)
[2018-10-07 07:28] LABS: Glucose,Whole Blood 175 mg/dL (75-99)
[2018-10-07] MEDS: DOCUSATE 100 MG CAP PO SCH ×2 (07:28→20:21)
[2018-10-07] MEDS: TAMSULOSIN 0.4 MG CAP.ER.24H PO SCH (07:28)
[2018-10-07] MEDS: ATORVASTATIN 40 MG TAB PO SCH (07:28)
[2018-10-07] MEDS: CLOPIDOGREL 75 MG TAB PO SCH (07:28)
[2018-10-07] MEDS: POTASSIUM CHLORIDE ER 10 MEQ TAB.ER.PRT PO SCH (07:28)
[2018-10-07] MEDS: amLODIPine 5 MG TAB PO SCH ×2 (07:28→20:21)
[2018-10-07 08:12] LABS: Calcium 8.5 mg/dL (8.4-10.2); Potassium 4.7 mmol/L (3.5-5.1)
[2018-10-07] MEDS: IPRATROPIUM-ALBUTEROL 3 ML NEB INHALATION SCH ×4 (08:23→20:28)
--- NOTE | 2018-10-07 10:10 | P.PN ---
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 He does not follow regularly with a multi site leasing consultant however was just seen here by Dr. Mullins earlier this month and haven't made it to their follow up visit yet. He was discharged to a rehab facility 09/21/2018 after being treated for heart failure. He states overall he had been feeling well until night prior to admission when he became acutely short of breath. Chest x-ray obtained on admission reveals elevated right hemidiaphragm, right pleural effusion and right lower lobe consolidation. He has been started on IV antibiotics. Echocardiogram from earlier this month showed a normal LV systolic function with an ejection fraction between 55-60%, mild aortic stenosis, mild mitral regurgitation, mild tricuspid regurgitation and mild pulmonary hypertension. 10/07/18 upon examination, patient is sitting up in bed, recently repositioned by nursing staff. He is visibly short of breath and continues to complain of dyspnea on exertion, orthopnea and PND. Laboratory values this morning she'll be one of 28 and creatinine of 1.43. A stable. Weight is down almost 3 kg. Potassium is low at 3.4. Objective - Vital Signs Vital signs: Vital Signs Temp 98.3 F 10/07/18 07:00 Pulse 78 10/07/18 07:00 Resp 16 10/07/18 07:00 BP 150/73 10/07/18 07:00 Pulse Ox 93 L 10/07/18 07:00 Intake & Output 10/06/18 10/07/18 10/07/18 18:59 06:59 18:59 Intake Total 480 Output Total 1150 Balance -670 Weight 128.5 kg Intake: Oral 480 Output: Urine 1150 Other: Voiding Method Urinal Urinal # Voids 1 - Exam PHYSICAL EXAMINATION: HEENT: Head is atraumatic, normocephalic. Pupils equal, round. Neck is supple. There is elevated jugular venous pressure. HEART EXAMINATION: Heart sounds irregularly irregular, S1 and S2 with a systolic murmur. CHEST EXAMINATION: Lungs reveal diminished air entry throughout with bibasilar crackles. No chest wall tenderness is noted on palpation or with deep breathing. ABDOMEN: Soft, obese, nontender. Bowel sounds are heard. No organomegaly noted. EXTREMITIES: 2+ peripheral pulses with evidence of moderate peripheral edema and no calf tenderness noted. NEUROLOGIC patient is awake, alert and oriented x3. . - Labs CBC & Chem 7: 10/05/18 23:24 10/07/18 07:20 Labs: Abnormal Lab Results - Last 24 Hours (Table) 10/06/18 10/06/18 10/06/18 Range/Units 11:27 16:48 20:37 Chloride (98-107) mmol/L Carbon Dioxide (22-30) mmol/L BUN (9-20) mg/dL Creatinine (0.66-1.25) mg/dL Glucose (74-99) mg/dL POC Glucose (mg/dL) 128 H 65 L 160 H (75-99) mg/dL 10/07/18 10/07/18 Range/Units 07:15 07:20 Chloride 95 L (98-107) mmol/L Carbon Dioxide 39 H (22-30) mmol/L BUN 28 H (9-20) mg/dL Creatinine 1.43 H (0.66-1.25) mg/dL Glucose 187 H (74-99) mg/dL POC Glucose (mg/dL) 175 H (75-99) mg/dL Microbiology - Last 24 Hours (Table) 10/06/18 01:33 Blood Culture - Preliminary Blood No Growth after 24 hours Assessment and Plan Assessment: #1 acute on chronic diastolic congestive heart failure #2 suspected pneumonia on IV antibiotics #3 chronic persistent atrial fibrillation on long-term anticoagulation #4 hypertension #5 hyperlipidemia #6 chronic kidney disease, stage IIIa #7 history of CAD with prior CABG #8 history of CVA in the past 2 #9 diabetes Plan: From cardiology perspective, we will increase IV Lasix to 40 mg every 8 hours. Continue to follow electrolytes and renal function as well as daily weights and intake and output. We will continue to follow the patient with further recommendations accordingly. HVAC MAINTENANCE TECHNICIAN note has been reviewed, I agree with a documented findings and plan of care. Patient was seen and examined.
[2018-10-07 11:54] LABS: Glucose,Whole Blood 180 mg/dL (75-99)
[2018-10-07] MEDS: MULTIVITAMINS, THERA 1 EACH TAB PO SCH (12:34)
--- NOTE | 2018-10-07 13:15 | P.PN ---
Subjective Progress Note Date: 10/07/18 Principal diagnosis: Acute on chronic diastolic congestive heart failure The patient is seen today in 2017 in follow-up on the regular medical floor. He is currently awake and alert in no acute distress. He did have some trouble with increasing shortness of breath last evening. He was placed on a Ventimask temporally. Currentlyintake O2 saturations in the 90s on 3 L/m per nasal cannula. He remains on DuoNeb inhalations Levaquin. He is continued on Lasix 40 mg IV every 8 hours. Objective - Vital Signs Vital signs: Vital Signs Temp 98.3 F 10/07/18 07:00 Pulse 78 10/07/18 07:00 Resp 16 10/07/18 07:00 BP 150/73 10/07/18 07:00 Pulse Ox 93 L 10/07/18 07:00 Intake & Output 10/06/18 10/07/18 10/07/18 18:59 06:59 18:59 Intake Total 480 633 Output Total 1150 600 Balance -670 33 Weight 128.5 kg 128 kg Intake: Oral 480 633 Output: Urine 1150 600 Other: Voiding Method Urinal Urinal # Voids 1 1 - Exam GENERAL EXAM: pleasant 82-year-old gentleman currently in no acute distress. On 3 L nasal cannula. HEAD: Normocephalic. EYES: Normal reaction of pupils, equal size. NOSE: Clear with pink turbinates. THROAT: No erythema or exudates. NECK: No masses, no JVD. CHEST: No chest wall deformity. LUNGS: Equal air entry with Mukul in the bilateral posterior basess. CVS: S1 and S2 normal with no audible murmur, regular rhythm. ABDOMEN: No hepatosplenomegaly, normal bowel sounds, no guarding or rigidity. SPINE: No scoliosis or deformity SKIN: No rashes CENTRAL NERVOUS SYSTEM: No focal deficits, tone is normal in all 4 extremities. EXTREMITIES: There is 1+ peripheral edema. No clubbing, no cyanosis. Peripheral pulses are intact. - Labs CBC & Chem 7: 10/05/18 23:24 10/07/18 07:20 Labs: Abnormal Lab Results - Last 24 Hours (Table) 10/06/18 10/06/18 10/07/18 Range/Units 16:48 20:37 07:15 Chloride (98-107) mmol/L Carbon Dioxide (22-30) mmol/L BUN (9-20) mg/dL Creatinine (0.66-1.25) mg/dL Glucose (74-99) mg/dL POC Glucose (mg/dL) 65 L 160 H 175 H (75-99) mg/dL 10/07/18 10/07/18 Range/Units 07:20 11:43 Chloride 95 L (98-107) mmol/L Carbon Dioxide 39 H (22-30) mmol/L BUN 28 H (9-20) mg/dL Creatinine 1.43 H (0.66-1.25) mg/dL Glucose 187 H (74-99) mg/dL POC Glucose (mg/dL) 180 H (75-99) mg/dL Microbiology - Last 24 Hours (Table) 10/06/18 01:33 Blood Culture - Preliminary Blood No Growth after 24 hours Assessment and Plan Assessment: impression: #1 Acute on chronic diastolic congestive heart failure. #2 Acute hypoxemic respiratory failure secondary to above. #3 Acute on chronic hypercapnic respiratory failure secondary to underlying sleep apnea and/or pickwickian syndrome. #4 Minimal obstructive lung disease from remote history of chronic tobacco dependence. #5 Morbid obesity. #6 Diabetes mellitus. #7 Hypertension. #8 Hyperlipidemia. #9 Previous CVA with right-sided weakness. #10 History of myocardial infarction. Plan: The patient was seen and evaluated by Dr. Hickman. He is still not quite back to his baseline. Continue the current treatment plan. Utilize BiPAP 10/5 and 50% FiO2 during the evenings and throughout the day while napping if needed. Increase his activity as tolerated. We'll continue to follow. I, the cosigning physician, performed a history & physical examination of the patient. Lungs sounds with crackles in the bilateral posterior bases Maintaining good O2 saturations in the 90s on 3 L/m per nasal cannula. I discussed the assessment and plan of care with my nurse practitioner, Melonie Lamb. I attest to the above note as dictated by her.
[2018-10-07 13:27] LABS: Glucose,Whole Blood 160 mg/dL (75-99)
--- NOTE | 2018-10-07 15:46 | P.PN ---
Subjective 82-year-old pleasant gentleman was admitted secondary to multifactorial respiratory failure. Patient is presently having chronic diastolic dysfunction for which patient on IV Lasix patient does have chronic kidney disease with creatinine of 1.4 because of his dialysis is not very effective at this time patient is not saturating well on high flow as well as Ventimask because of which patient will be switched to BiPAP. Patient has other chronic medical issues including chronic paralysis of right diaphragm and nonfunctional right-sided respiratory muscles because of his stroke. Patient does have moderate pulmonary hypertension does have sleep apnea, restrictive lung disease. Patient is in significant respiratory distress. This chronic respiratory issues can be fixed and testing his diastolic dysfunction and age his prognosis overall is poor patient is expected to have multiple hospitalization. Same thing was discussed with the family. I cleared all the questions of the family and patient. Patient will be continued on Lasix presently patient's family is leaning towards hospice hospice is totally appropriate patient to was recently discharged to [facility]. Patient was doing well until couple months ago and is present quality of life is poor which is not expected to improve. Patient is DO NOT RESUSCITATE., As discussed with the patient patient doesn't want intubation either. Hospice was consulted. I had lengthy discussion with the family at bedside as well as on phone. Constitutional: Denied any fatigue denied any fever. Cardio vascular: denied any chest pain, palpitations Gastrointestinal denied any nausea vomiting Pulmonary: Patient is quite a bit short of breath not doing well in respiratory distress Neurologic denied any new focal deficits All inpatient medications were reviewed and appropriate changes in these medications as dictated in the interval history and assessment and plan. Objective - Vital Signs Vital signs: Vital Signs Temp 97.5 F L 10/07/18 14:50 Pulse 67 10/07/18 14:50 Resp 16 10/07/18 14:50 BP 139/78 10/07/18 14:50 Pulse Ox 92 L 10/07/18 14:50 Intake & Output 10/06/18 10/07/18 10/07/18 18:59 06:59 18:59 Intake Total 480 869 Output Total 1150 600 Balance -670 269 Weight 128.5 kg 128 kg Intake: Oral 480 869 Output: Urine 1150 600 Other: Voiding Method Urinal Urinal # Voids 1 1 - Exam PHYSICAL EXAMINATION: GENERAL: The patient is alert and oriented x3, she does have significant respiratory distress, obese HEENT: Pupils are round and equally reacting to light. EOMI. No scleral icterus. No conjunctival pallor. Normocephalic, atraumatic. No pharyngeal erythema. No thyromegaly. CARDIOVASCULAR: S1 and S2 present. No murmurs, rubs, or gallops. PULMONARY: Almost absent breath sounds on the right side and crackles and wheezing on the left side ABDOMEN: Soft, nontender, nondistended, normoactive bowel sounds. No palpable organomegaly. MUSCULOSKELETAL: No joint swelling or deformity. EXTREMITIES: No cyanosis, clubbing, or pedal edema. NEUROLOGICAL: Gross neurological examination did not reveal any new focal deficits. Weakness on the right to the body which is chronic SKIN: No rashes. - Labs CBC & Chem 7: 10/05/18 23:24 10/07/18 07:20 Labs: Abnormal Lab Results - Last 24 Hours (Table) 10/06/18 10/06/18 10/07/18 Range/Units 16:48 20:37 07:15 Chloride (98-107) mmol/L Carbon Dioxide (22-30) mmol/L BUN (9-20) mg/dL Creatinine (0.66-1.25) mg/dL Glucose (74-99) mg/dL POC Glucose (mg/dL) 65 L 160 H 175 H (75-99) mg/dL 10/07/18 10/07/18 10/07/18 Range/Units 07:20 11:43 13:16 Chloride 95 L (98-107) mmol/L Carbon Dioxide 39 H (22-30) mmol/L BUN 28 H (9-20) mg/dL Creatinine 1.43 H (0.66-1.25) mg/dL Glucose 187 H (74-99) mg/dL POC Glucose (mg/dL) 180 H 160 H (75-99) mg/dL Microbiology - Last 24 Hours (Table) 10/06/18 01:33 Blood Culture - Preliminary Blood No Growth after 24 hours Assessment and Plan Plan: -Acute hypoxic respiratory failure secondary to chronic diastolic dysfunction with acute exacerbation. Multifactorial shortness of breath secondary to above- mentioned factors of obesity hypoventilation syndrome pulmonary hypertension right diaphragmatic paralysis and right decided respiratory muscle paralysis. Continue with the diuretic therapy, with respiratory support with BiPAP a she is also on broad-spectrum antibiotics although the distal clear-cut evidence of pneumonia at this time. -Atrial fibrillation on anti-coagulation patient is presently rate controlled -hypertension -type 2 diabetes mellitus -Hyperlipidemia coronary artery disease CVA TIA in the past -Chronic kidney disease stage III secondary to diabetic nephropathy creatinine is almost at his baseline. Overall prognosis is externally poor discussed with the family regarding hospice
[2018-10-07] MEDS: RIVAROXABAN 15 MG TAB PO SCH (16:39)
[2018-10-07 16:43] LABS: Glucose,Whole Blood 133 mg/dL (75-99)
[2018-10-07 20:21] LABS: Glucose,Whole Blood 190 mg/dL (75-99)
[2018-10-07] MEDS: LISINOPRIL 10 MG TAB PO SCH (20:21)
[2018-10-07] MEDS ORDERED: LEVOFLOXACIN 750 MG TAB PO SCH (21:00)
[2018-10-08 07:05] LABS: Glucose,Whole Blood 157 mg/dL (75-99)
[2018-10-08] MEDS: FUROSEMIDE 10 MG/ML 4 ML VIAL IV SCH ×4 (07:57→23:15)
[2018-10-08] MEDS: INSULN ASP PRT/INSULIN ASPART 100 UNIT/ML 10 ML VIAL SQ SCH ×2 (08:02→18:10)
[2018-10-08] MEDS: INSULIN ASPART (NovoLOG) 100 UNIT/ML VIAL SQ SCH ×4 (08:02→20:32)
[2018-10-08] MEDS: LISINOPRIL 10 MG TAB PO SCH ×2 (08:03→20:32)
[2018-10-08] MEDS: DOCUSATE 100 MG CAP PO SCH ×2 (08:04→20:32)
[2018-10-08] MEDS: METOPROLOL TARTRATE 50 MG TAB PO SCH (08:04)
[2018-10-08] MEDS: CLOPIDOGREL 75 MG TAB PO SCH (08:04)
[2018-10-08] MEDS: TAMSULOSIN 0.4 MG CAP.ER.24H PO SCH (08:04)
[2018-10-08] MEDS: POTASSIUM CHLORIDE ER 10 MEQ TAB.ER.PRT PO SCH (08:04)
[2018-10-08] MEDS: amLODIPine 5 MG TAB PO SCH ×2 (08:04→20:32)
[2018-10-08] MEDS: ATORVASTATIN 40 MG TAB PO SCH (08:04)
[2018-10-08] MEDS: IPRATROPIUM-ALBUTEROL 3 ML NEB INHALATION SCH ×4 (08:06→19:54)
[2018-10-08 08:20] LABS: Calcium 8.5 mg/dL (8.4-10.2); Potassium 4.7 mmol/L (3.5-5.1)
--- NOTE | 2018-10-08 10:21 | P.NPCON ---
History of Present Illness - Reason for Consult Consult date: 10/08/18 chronic renal failure - Chief Complaint Shortness of breath - History of Present Illness 82-year-old gentleman coming to the hospital from rehab with shortness of breath and lower extremity edema. He has chronic kidney disease stage III with a baseline creatinine of 1.4. He is currently at baseline. He is also on BiPAP for hypoxia. He has recurrent hospital admissions with similar problems and volume overload. As per the he used to make good amount of urine but his urine output has decreased. Denies any incomplete emptying of the bladder. No hypotensive episodes. No NSAID use. No recent contrast studies. Long history of diabetes for more than 15 years. He has diastolic CHF with pulmonary hypertension and coronary artery disease with CABG. No nausea vomiting diarrhea. He is getting Lasix 40 mg IV every 8 hours while in the hospital. Still has edema and urine output of 800 ML's in the last 24 hours. Urine analysis shows 2+ protein. Home medications includes lisinopril and Lasix 40 mg by mouth twice a day. Review of Systems Constitutional: Reports as per HPI Past Medical History Past Medical History: Heart Failure, CVA/TIA, Diabetes Mellitus, Hyperlipidemia, Hypertension, Myocardial Infarction ([place]) Additional Past Medical History / Comment(s): right side paralysis from first stroke. macular degeneration Last Myocardial Infarction Date:: 2011 History of Any Multi-Drug Resistant Organisms: None Reported Past Surgical History: Coronary Bypass/CABG, Heart Catheterization Past Anesthesia/Blood Transfusion Reactions: No Reported Reaction Past Psychological History: Anxiety Smoking Status: Former smoker Past Alcohol Use History: None Reported Past Drug Use History: None Reported - Past Family History Mother Family Medical History: Cancer Additional Family Medical History / Comment(s): of ovarian Cancer Medications and Allergies Home Medications Medication Instructions Recorded Confirmed Type Clopidogrel Bisulfate [Clopidogrel] 75 mg PO DAILY 03/03/14 10/05/18 History Furosemide 40 mg PO BID 03/03/14 10/05/18 History Lisinopril 20 mg PO BID 03/03/14 10/05/18 History amLODIPine 5 mg PO BID 03/03/14 10/05/18 History Multivitamins, Thera [Multivitamin 1 each PO DAILY@1200 #30 tab 03/06/14 10/05/18 Rx (formulary)] Atorvastatin [Lipitor] 40 mg PO DAILY 09/13/18 10/05/18 History INSULIN LISPRO (humaLOG) [humaLOG] 0 units SQ ACHS 09/13/18 10/05/18 History Metoprolol Tartrate [Lopressor] 100 mg PO DAILY 09/13/18 10/05/18 History Pierce-3 Fatty Acids/Fish Oil [Fish 1,000 mg PO DAILY 09/13/18 10/05/18 History Oil 1,000 mg Softgel] Docusate [Colace] 100 mg PO BID cap 09/21/18 10/05/18 Rx Insuln Asp Prt/Insulin Aspart 28 unit SQ AC-SUPPER vial 09/21/18 10/05/18 Rx [NovoLOG MIX 70-30 VIAL] Insuln Asp Prt/Insulin Aspart 33 unit SQ AC-BRKFST vial 09/21/18 10/05/18 Rx [NovoLOG MIX 70-30 VIAL] Ipratropium-Albuterol Nebulize 3 ml INHALATION RT-QID ampul.neb 09/21/18 10/05/18 Rx [Duoneb 0.5 mg-3 mg/3 ml Soln] Rivaroxaban [Xarelto] 15 mg PO W/SUPPER tab 09/21/18 10/05/18 Rx Tamsulosin [Flomax] 0.4 mg PO DAILY cap.er.24h 09/21/18 10/05/18 Rx Potassium Chloride ER [K-Dur 10] 10 meq PO DAILY 10/05/18 10/05/18 History Allergies Allergy/AdvReac Type Severity Reaction Status Date / Time Sulfa (Sulfonamide Allergy Unknown Verified 10/05/18 22:45 Antibiotics) Physical Exam Vitals: Vital Signs Temp Pulse Pulse Resp BP Pulse Ox 10/08/18 08:17 90 10/08/18 08:12 16 90 L 10/08/18 08:07 88 10/08/18 07:00 97.6 F 85 16 144/67 87 L 10/08/18 03:14 90 L 10/08/18 01:32 98.1 F 70 16 144/78 93 L 10/07/18 20:43 79 10/07/18 20:28 74 10/07/18 20:00 98.6 F 75 18 135/55 92 L 10/07/18 15:54 77 10/07/18 15:42 76 10/07/18 14:50 97.5 F L 67 16 139/78 92 L Intake and Output 10/07/18 10/08/18 10/08/18 22:59 06:59 14:59 Intake Total 118 236 Output Total 200 Balance 118 -200 236 Intake: Oral 118 236 Output: Urine 200 Other: Voiding Method Urinal Urinal Weight 127 kg No acute distress on BiPAP S1-S2 heard Diminished breath sounds Edema Results - Lab Results Most recent lab results Calcium 8.5 mg/dL (8.4-10.2) 10/08/18 07:12 Magnesium 1.7 mg/dL (1.6-2.3) 10/05/18 23:24 10/05/18 23:24 10/08/18 07:12 Assessment and Plan Assessment: #1 chronic kidney disease stage III secondary to nephrosclerosis/diabetes with a baseline creatinine of 1.4 MG per DL. #2 volume overload multifactorial. Possibilities include diastolic CHF. Rule out nephrotic syndrome with proteinuria and long history of diabetes. #3 metabolic alkalosis. Check ABGs to rule out respiratory versus renal #4 hypertension with chronic kidney disease #5 diastolic CHF with pulmonary hypertension #6 diabetes #7 right lower lobe pneumonia on antibiotics Plan: #1 continue to diurese. Increase dose of Lasix to 60 mg IV 3 times a day. Also admit dialysis on 2.5 mg twice a day. #2 check urine analysis again, also check microalbumin and protein creatinine ratio. #3 he is also on amlodipine that can cause edema. Monitor. #4 avoid nephrotoxic agents and hypotensive episodes. #5 creatinine currently at baseline. Repeat labs in the morning. #6 no acute indications for renal replacement therapy for recurrent volume overload. Given very much for this consultation we'll follow along while he is in the hospital
[2018-10-08 10:47] LABS: ABG Base Excess 16.1 mmol/L; ABG Oxygen Saturation 92.4 % (94-97); ABG PCO2 65 mmHg (35-45); ABG PO2 62 mmHg (83-108); ABG TCO2 43 mmol/L (19-24)
[2018-10-08 10:55] LABS: ABG HCO3 41 mmol/L (21-25)
[2018-10-08 11:29] LABS: Appearance,Urine Clear (Clear); Bacteria,Urine Rare /hpf; Bilirubin,Urine Negative (Negative); Blood,Urine Negative (Negative); Color,Urine Yellow; Glucose,Urine (UA) Trace (Negative); Hyaline Casts,Urine 1 /lpf (0-2); Ketones,Urine Negative (Negative); Leukocyte Esterase,Urine Negative (Negative); Mucus,Urine Rare /hpf; Nitrite,Urine Negative (Negative); PH, Urine 5.5 (5.0-8.0); Protein,Urine 2+ (Negative); RBC,Urine 1 /hpf (0-5); Specific Gravity,Urine 1.011 (1.001-1.035); Urobilinogen,Urine <2.0 mg/dL (<2.0); WBC,Urine 1 /hpf (0-5)
[2018-10-08 11:50] LABS: Glucose,Whole Blood 220 mg/dL (75-99)
--- NOTE | 2018-10-08 12:15 | P.PN ---
Subjective Progress Note Date: 10/08/18 Principal diagnosis: Acute on chronic diastolic congestive heart failure The patient is seen today in 2017 in follow-up on the regular medical floor. He is currently awake and alert in no acute distress. He did have some trouble with increasing shortness of breath last evening. He was placed on a Ventimask temporally. Currentlyintake O2 saturations in the 90s on 3 L/m per nasal cannula. He remains on DuoNeb inhalations Levaquin. He is continued on Lasix 40 mg IV every 8 hours. On 10/08/2018 patient seen in follow-up on medical surgical floor. He is seen resting in bed, in no acute distress, apparently his oxygenation got worse in the night, he was little more short of breath, he was placed on BiPAP, which he remains with pressures of 12 and 5, and FiO2 of 50%, blood gases were obtained this morning, and showed a pO2 of 62, pCO2 of 65, and pH of 7.40, consistent with chronic hypercapnic and hypoxemic respiratory failure, compensated. Patient can wear the BiPAP support as needed for shortness of breath. No fever or chills. Remains on empiric antibiotics in the form of oral Levaquin, he is on oral anticoagulation for history of atrial fibrillation. He is on IV Lasix at 60 mg every 6 hours. Nephrology service is following, today's labs have been reviewed, his labs reveal stable renal profile, with the BUN of 31 and creatinine of 1.49. Blood cultures showed no growth. Pro-calcitonin level was low at 0.08. No complaints of chest pain, lung sounds are positive for diminished breath sounds at the bases. Objective - Vital Signs Vital signs: Vital Signs Temp 97.6 F 10/08/18 07:00 Pulse 90 10/08/18 08:17 Resp 16 10/08/18 08:12 BP 144/67 10/08/18 07:00 Pulse Ox 90 L 10/08/18 08:12 Intake & Output 10/07/18 10/08/18 10/08/18 18:59 06:59 18:59 Intake Total 987 236 Output Total 600 200 Balance 387 -200 236 Weight 128 kg 127 kg Intake: Oral 987 236 Output: Urine 600 200 Other: Voiding Method Urinal Urinal Urinal # Voids 1 - Exam GENERAL EXAM: Alert, pleasant, 82-year-old white male, on BiPAP support with pressures of 12 and 5, and FiO2 of 50%, comfortable in no apparent distress. HEAD: Normocephalic/atraumatic. EYES: Normal reaction of pupils, equal size. Conjunctiva pink, sclera white. NOSE: Clear with pink turbinates. THROAT: No erythema or exudates. NECK: No masses, no JVD, no thyroid enlargement, no adenopathy. CHEST: No chest wall deformity. Symmetrical expansion. LUNGS: Equal air entry with breath sounds at the bases, CVS: Irregular rate and rhythm, normal S1 and S2, no gallops, no murmurs, no rubs ABDOMEN: Soft, nontender. No hepatosplenomegaly, normal bowel sounds, no guarding or rigidity. EXTREMITIES: No clubbing, no edema, no cyanosis, 2+ pulses and upper and lower extremities. Right-sided hemiparesis MUSCULOSKELETAL: Muscle strength and tone normal. SPINE: No scoliosis or deformity SKIN: No rashes CENTRAL NERVOUS SYSTEM: Alert and oriented -3. Right-sided hemiparesis, right arm is weak, and patient has some swelling in the right arm PSYCHIATRIC: Alert and oriented -3. Appropriate affect. Intact judgment and insight. - Labs CBC & Chem 7: 10/05/18 23:24 10/08/18 07:12 Labs: Abnormal Lab Results - Last 24 Hours (Table) 10/07/18 10/07/18 10/07/18 Range/Units 13:16 16:32 20:09 ABG pCO2 (35-45) mmHg ABG pO2 (83-108) mmHg ABG HCO3 (21-25) mmol/L ABG Total CO2 (19-24) mmol/L ABG O2 Saturation (94-97) % Chloride (98-107) mmol/L Carbon Dioxide (22-30) mmol/L BUN (9-20) mg/dL Creatinine (0.66-1.25) mg/dL Glucose (74-99) mg/dL POC Glucose (mg/dL) 160 H 133 H 190 H (75-99) mg/dL U Random Total Protein (<12) mg/dL 10/08/18 10/08/18 10/08/18 Range/Units 06:53 07:12 10:06 ABG pCO2 (35-45) mmHg ABG pO2 (83-108) mmHg ABG HCO3 (21-25) mmol/L ABG Total CO2 (19-24) mmol/L ABG O2 Saturation (94-97) % Chloride 96 L (98-107) mmol/L Carbon Dioxide 36 H (22-30) mmol/L BUN 31 H (9-20) mg/dL Creatinine 1.49 H (0.66-1.25) mg/dL Glucose 180 H (74-99) mg/dL POC Glucose (mg/dL) 157 H (75-99) mg/dL U Random Total Protein 117 H (<12) mg/dL 10/08/18 10/08/18 Range/Units 10:35 11:39 ABG pCO2 65 H (35-45) mmHg ABG pO2 62 L (83-108) mmHg ABG HCO3 41 H* (21-25) mmol/L ABG Total CO2 43 H (19-24) mmol/L ABG O2 Saturation 92.4 L (94-97) % Chloride (98-107) mmol/L Carbon Dioxide (22-30) mmol/L BUN (9-20) mg/dL Creatinine (0.66-1.25) mg/dL Glucose (74-99) mg/dL POC Glucose (mg/dL) 220 H (75-99) mg/dL U Random Total Protein (<12) mg/dL Microbiology - Last 24 Hours (Table) 10/06/18 01:33 Blood Culture - Preliminary Blood No Growth after 48 hours Assessment and Plan Plan: Assessment: #1 Acute on chronic diastolic congestive heart failure. #2 Acute hypoxemic respiratory failure secondary to above. #3 Acute on chronic hypercapnic respiratory failure secondary to underlying sleep apnea and/or pickwickian syndrome. #4 Minimal obstructive lung disease from remote history of chronic tobacco dependence. #5 Morbid obesity. #6 Diabetes mellitus. #7 Hypertension. #8 Hyperlipidemia. #9 Previous CVA with right-sided weakness. #10 History of myocardial infarction. Plan: Continue the IV diuretics, patient can continue on BiPAP support as needed, blood gases have been reviewed, and were consistent with chronic hypercapnic and hypoxemic respiratory failure. Continue breathing treatments, we'll stop the Le vaquin, procalcitonin level was low suggesting absence of an infection. The culture showed no growth, no fever or chills I performed a history & physical examination of the patient and discussed their management with my nurse practitioner, Jeanette Carter. I reviewed the nurse practitioner's note and agree with the documented findings and plan of care. Lung sounds are positive for diminished breath sounds. The findings and the impression was discussed with the patient. I attest to the documentation by the nurse practitioner. Time with Patient: Less than 30
--- NOTE | 2018-10-08 12:21 | P.PN ---
Subjective 82-year-old pleasant gentleman was admitted secondary to multifactorial respiratory failure. Patient is presently having chronic diastolic dysfunction for which patient on IV Lasix patient does have chronic kidney disease with creatinine of 1.4 because of his dialysis is not very effective at this time patient is not saturating well on high flow as well as Ventimask because of which patient will be switched to BiPAP. Patient has other chronic medical issues including chronic paralysis of right diaphragm and nonfunctional right-sided respiratory muscles because of his stroke. Patient does have moderate pulmonary hypertension does have sleep apnea, restrictive lung disease. Patient is in significant respiratory distress. This chronic respiratory issues can be fixed and testing his diastolic dysfunction and age his prognosis overall is poor patient is expected to have multiple hospitalization. Same thing was discussed with the family. I cleared all the questions of the family and patient. Patient will be continued on Lasix presently patient's family is leaning towards hospice hospice is totally appropriate patient to was recently discharged to half-way. Patient was doing well until couple months ago and is present quality of life is poor which is not expected to improve. Patient is DO NOT RESUSCITATE., As discussed with the patient patient doesn't want intubation either. Hospice was consulted. I had lengthy discussion with the family at bedside as well as on phone. 09/30/2018 patient is doing much better today patient that can use to be an IV Lasix and Zaroxolyn. Patient was pretty status improved. His overall prognosis remains poor and not expected to have great quality of life because of which I discussed with the patient regarding hospice again. Family is planning on home with hospice which probably we will work on tomorrow Constitutional: Denied any fatigue denied any fever. Cardio vascular: denied any chest pain, palpitations Gastrointestinal denied any nausea vomiting Pulmonary: Shortness of breath improved Neurologic denied any new focal deficits All inpatient medications were reviewed and appropriate changes in these medications as dictated in the interval history and assessment and plan. Objective - Vital Signs Vital signs: Vital Signs Temp 97.6 F 10/08/18 07:00 Pulse 90 10/08/18 08:17 Resp 16 10/08/18 08:12 BP 144/67 10/08/18 07:00 Pulse Ox 90 L 10/08/18 08:12 Intake & Output 10/07/18 10/08/18 10/08/18 18:59 06:59 18:59 Intake Total 987 236 Output Total 600 200 Balance 387 -200 236 Weight 128 kg 127 kg Intake: Oral 987 236 Output: Urine 600 200 Other: Voiding Method Urinal Urinal Urinal # Voids 1 - Exam PHYSICAL EXAMINATION: GENERAL: The patient is alert and oriented x3, not in respiratory distress today obese HEENT: Pupils are round and equally reacting to light. EOMI. No scleral icterus. No conjunctival pallor. Normocephalic, atraumatic. No pharyngeal erythema. No thyromegaly. CARDIOVASCULAR: S1 and S2 present. No murmurs, rubs, or gallops. PULMONARY: Fairly good air entry into left lung hooper very minimal breath sounds on the right side ABDOMEN: Soft, nontender, nondistended, normoactive bowel sounds. No palpable organomegaly. MUSCULOSKELETAL: No joint swelling or deformity. EXTREMITIES: No cyanosis, clubbing, or pedal edema. NEUROLOGICAL: Gross neurological examination did not reveal any new focal deficits. Weakness on the right to the body which is chronic SKIN: No rashes. - Labs CBC & Chem 7: 10/05/18 23:24 10/08/18 07:12 Labs: Abnormal Lab Results - Last 24 Hours (Table) 10/07/18 10/07/18 10/07/18 Range/Units 13:16 16:32 20:09 ABG pCO2 (35-45) mmHg ABG pO2 (83-108) mmHg ABG HCO3 (21-25) mmol/L ABG Total CO2 (19-24) mmol/L ABG O2 Saturation (94-97) % Chloride (98-107) mmol/L Carbon Dioxide (22-30) mmol/L BUN (9-20) mg/dL Creatinine (0.66-1.25) mg/dL Glucose (74-99) mg/dL POC Glucose (mg/dL) 160 H 133 H 190 H (75-99) mg/dL U Random Total Protein (<12) mg/dL 10/08/18 10/08/18 10/08/18 Range/Units 06:53 07:12 10:06 ABG pCO2 (35-45) mmHg ABG pO2 (83-108) mmHg ABG HCO3 (21-25) mmol/L ABG Total CO2 (19-24) mmol/L ABG O2 Saturation (94-97) % Chloride 96 L (98-107) mmol/L Carbon Dioxide 36 H (22-30) mmol/L BUN 31 H (9-20) mg/dL Creatinine 1.49 H (0.66-1.25) mg/dL Glucose 180 H (74-99) mg/dL POC Glucose (mg/dL) 157 H (75-99) mg/dL U Random Total Protein 117 H (<12) mg/dL 10/08/18 10/08/18 Range/Units 10:35 11:39 ABG pCO2 65 H (35-45) mmHg ABG pO2 62 L (83-108) mmHg ABG HCO3 41 H* (21-25) mmol/L ABG Total CO2 43 H (19-24) mmol/L ABG O2 Saturation 92.4 L (94-97) % Chloride (98-107) mmol/L Carbon Dioxide (22-30) mmol/L BUN (9-20) mg/dL Creatinine (0.66-1.25) mg/dL Glucose (74-99) mg/dL POC Glucose (mg/dL) 220 H (75-99) mg/dL U Random Total Protein (<12) mg/dL Microbiology - Last 24 Hours (Table) 10/06/18 01:33 Blood Culture - Preliminary Blood No Growth after 48 hours Assessment and Plan Plan: -Acute hypoxic respiratory failure secondary to chronic diastolic dysfunction with acute exacerbation. Multifactorial shortness of breath secondary to above- mentioned factors of obesity hypoventilation syndrome pulmonary hypertension right diaphragmatic paralysis and right decided respiratory muscle paralysis. Continue with the diuretic therapy, patient has significant improvement compared to yesterday but his overall prognosis remains poor. Family is planning on home with hospice. Same thing was discussed with the patient -Atrial fibrillation on anti-coagulation patient is presently rate controlled -hypertension -type 2 diabetes mellitus -Hyperlipidemia coronary artery disease CVA TIA in the past -Chronic kidney disease stage III secondary to diabetic nephropathy creatinine is almost at his baseline. Overall prognosis is externally poor discussed with the family regarding hospice
[2018-10-08] MEDS ORDERED: LACTULOSE 20 GM/30 ML CUP PO PRN (12:26)
[2018-10-08] MEDS: METOLAZONE 2.5 MG TAB PO SCH ×2 (12:31→20:32)
[2018-10-08] MEDS: MULTIVITAMINS, THERA 1 EACH TAB PO SCH (12:31)
[2018-10-08 13:54] LABS: Glucose,Whole Blood 187 mg/dL (75-99)
[2018-10-08 16:57] LABS: Glucose,Whole Blood 181 mg/dL (75-99)
[2018-10-08] MEDS: RIVAROXABAN 15 MG TAB PO SCH (18:04)
[2018-10-08 20:09] LABS: Glucose,Whole Blood 172 mg/dL (75-99)
[2018-10-09] MEDS: FUROSEMIDE 10 MG/ML 4 ML VIAL IV SCH (05:40)
[2018-10-09] MEDS: IPRATROPIUM-ALBUTEROL 3 ML NEB INHALATION SCH ×3 (06:53→17:26)
[2018-10-09 06:54] LABS: Glucose,Whole Blood 188 mg/dL (75-99)
[2018-10-09] MEDS: INSULIN ASPART (NovoLOG) 100 UNIT/ML VIAL SQ SCH ×3 (07:45→17:41)
[2018-10-09 07:52] VITALS: BP 158/79; PULSE 73; RESP 17; TEMP 98.6
[2018-10-09] MEDS: METOPROLOL TARTRATE 50 MG TAB PO SCH (07:52)
[2018-10-09] MEDS: CLOPIDOGREL 75 MG TAB PO SCH (07:52)
[2018-10-09] MEDS: MULTIVITAMINS, THERA 1 EACH TAB PO SCH (07:53)
[2018-10-09] MEDS: POTASSIUM CHLORIDE ER 10 MEQ TAB.ER.PRT PO SCH (07:53)
[2018-10-09] MEDS: amLODIPine 5 MG TAB PO SCH (07:53)
[2018-10-09] MEDS: TAMSULOSIN 0.4 MG CAP.ER.24H PO SCH (07:53)
[2018-10-09] MEDS: LISINOPRIL 10 MG TAB PO SCH (07:53)
[2018-10-09] MEDS: ATORVASTATIN 40 MG TAB PO SCH (07:53)
[2018-10-09] MEDS: DOCUSATE 100 MG CAP PO SCH (07:53)
[2018-10-09] MEDS: METOLAZONE 2.5 MG TAB PO SCH (07:55)
[2018-10-09] MEDS: INSULN ASP PRT/INSULIN ASPART 100 UNIT/ML 10 ML VIAL SQ SCH ×2 (07:56→17:41)
[2018-10-09 08:17] LABS: Albumin 3.1 g/dL (3.5-5.0); Calcium 8.5 mg/dL (8.4-10.2); Potassium 4.1 mmol/L (3.5-5.1); Total Bilirubin 0.8 mg/dL (0.2-1.3); Total Protein 5.6 g/dL (6.3-8.2)
--- NOTE | 2018-10-09 10:26 | P.PN ---
Subjective Patient is seen in follow-up for acute kidney injury. His creatinine in 2013 was near 1. He does not follow with a budget counselor as an outpatient. Patient presented to the hospital with dyspnea and edema. He is noted to have diastolic CHF. Currently maintained on IV Lasix. Urine output has been fair. Denies chest pain. They're meeting with hospice this afternoon. Vital signs are stable. General: The patient appeared well nourished and normally developed. HEENT: Head exam is unremarkable. Neck is without jugular venous distension. LUNGS: Breath sounds decreased. HEART: Rate and Rhythm are regular. First and second heart sounds normal. No murmurs, rubs or gallops. ABDOMEN: Abdominal exam reveals normal bowel sounds. Non-tender and non- distended. No evidence of peritonitis. EXTREMITITES: Trace edema. Objective - Vital Signs Vital signs: Vital Signs Temp 98.6 F 10/09/18 06:54 Pulse 68 10/09/18 07:06 Resp 17 10/09/18 06:54 BP 158/79 10/09/18 06:54 Pulse Ox 90 L 10/09/18 06:54 Intake & Output 10/08/18 10/09/18 10/09/18 18:59 06:59 18:59 Intake Total 472 237 Output Total 1100 200 Balance 472 -1100 37 Weight 129 kg Intake: Oral 472 237 Output: Urine 1100 200 Other: Voiding Method Urinal Urinal Urinal - Labs CBC & Chem 7: 10/05/18 23:24 10/09/18 06:46 Labs: Abnormal Lab Results - Last 24 Hours (Table) 10/08/18 10/08/18 10/08/18 Range/Units 10:06 10:09 10:35 ABG pCO2 65 H (35-45) mmHg ABG pO2 62 L (83-108) mmHg ABG HCO3 41 H* (21-25) mmol/L ABG Total CO2 43 H (19-24) mmol/L ABG O2 Saturation 92.4 L (94-97) % Chloride (98-107) mmol/L Carbon Dioxide (22-30) mmol/L BUN (9-20) mg/dL Creatinine (0.66-1.25) mg/dL Glucose (74-99) mg/dL POC Glucose (mg/dL) (75-99) mg/dL AST (17-59) U/L Total Protein (6.3-8.2) g/dL Albumin (3.5-5.0) g/dL Urine Protein 2+ H (Negative) Urine Glucose (UA) Trace H (Negative) Urine Bacteria Rare H (None) /hpf Urine Mucus Rare H (None) /hpf U Random Total Protein 117 H (<12) mg/dL 10/08/18 10/08/18 10/08/18 Range/Units 11:39 13:32 16:56 ABG pCO2 (35-45) mmHg ABG pO2 (83-108) mmHg ABG HCO3 (21-25) mmol/L ABG Total CO2 (19-24) mmol/L ABG O2 Saturation (94-97) % Chloride (98-107) mmol/L Carbon Dioxide (22-30) mmol/L BUN (9-20) mg/dL Creatinine (0.66-1.25) mg/dL Glucose (74-99) mg/dL POC Glucose (mg/dL) 220 H 187 H 181 H (75-99) mg/dL AST (17-59) U/L Total Protein (6.3-8.2) g/dL Albumin (3.5-5.0) g/dL Urine Protein (Negative) Urine Glucose (UA) (Negative) Urine Bacteria (None) /hpf Urine Mucus (None) /hpf U Random Total Protein (<12) mg/dL 10/08/18 10/09/18 10/09/18 Range/Units 20:07 06:46 06:52 ABG pCO2 (35-45) mmHg ABG pO2 (83-108) mmHg ABG HCO3 (21-25) mmol/L ABG Total CO2 (19-24) mmol/L ABG O2 Saturation (94-97) % Chloride 94 L (98-107) mmol/L Carbon Dioxide 36 H (22-30) mmol/L BUN 36 H (9-20) mg/dL Creatinine 1.51 H (0.66-1.25) mg/dL Glucose 179 H (74-99) mg/dL POC Glucose (mg/dL) 172 H 188 H (75-99) mg/dL AST 15 L (17-59) U/L Total Protein 5.6 L (6.3-8.2) g/dL Albumin 3.1 L (3.5-5.0) g/dL Urine Protein (Negative) Urine Glucose (UA) (Negative) Urine Bacteria (None) /hpf Urine Mucus (None) /hpf U Random Total Protein (<12) mg/dL Microbiology - Last 24 Hours (Table) 10/06/18 01:33 Blood Culture - Preliminary Blood No Growth after 72 hours Assessment and Plan Plan: Assessment: 1. Acute kidney injury mostly prerenal secondary to cardiorenal syndrome. Creatinine 1.51 today. Creatinine in 2013 was near 1. No evidence of hydronephrosis noted on renal ultrasound. 2. Acute hypoxic respiratory failure secondary to volume overload. 3. Volume overload. Patient does not have nephrotic syndrome. 4. Insulin-dependent diabetes mellitus. 5. Hypertension with chronic kidney disease. Stable. Plan: I will change Lasix to 80 mg IV twice daily. Avoid nephrotoxins. Family meeting with hospice this afternoon.
[2018-10-09 12:03] LABS: Glucose,Whole Blood 210 mg/dL (75-99)
--- NOTE | 2018-10-09 13:06 | P.DS ---
Providers Date of admission: 10/06/18 01:04 Expected date of discharge: 10/09/18 Attending physician: Carlos Alberto Feliciano Consults: 10/06/18 07:57 Consult Physician Routine Consulting Provider: Yosvany Mullins Consult Reason/Comments: readmit, chf Do you want consulting provider notified?: Yes 10/06/18 07:58 Consult Physician Routine Consulting Provider: Anthony Hickman Consult Reason/Comments: readmit, pneum, chf Do you want consulting provider notified?: Yes 10/07/18 13:32 Consult Physician Routine Consulting Provider: Ar Chand Consult Reason/Comments: CKD, JEYSON Do you want consulting provider notified?: Yes Primary care physician: [facility] Hospital Course: 82-year-old male was brought to the emergency room with complaints of increasing shortness of breath multifactorial respiratory failure patient and family admitted decision to go to hospice care patient to be discharged home with hospice Assessment Acute hypoxic hypercapnic respiratory failure Chronic diastolic dysfunction with acute exacerbation Hypertension Atrial fibrillation rate controlled Diabetes type 2 Hyperlipidemia CVA/TIA Chronic kidney disease stage III with diabetic nephropathy Plan No code Transferred to hospice Plan - Discharge Summary New Discharge Prescriptions: Continue amLODIPine 5 mg PO BID Lisinopril 20 mg PO BID Furosemide 40 mg PO BID Clopidogrel Bisulfate [Clopidogrel] 75 mg PO DAILY INSULIN LISPRO (humaLOG) [humaLOG] 0 units SQ ACHS Metoprolol Tartrate [Lopressor] 100 mg PO DAILY Docusate [Colace] 100 mg PO BID cap Ipratropium-Albuterol Nebulize [Duoneb 0.5 mg-3 mg/3 ml Soln] 3 ml INHALATION RT-QID ampul.neb Tamsulosin [Flomax] 0.4 mg PO DAILY cap.er.24h Insuln Asp Prt/Insulin Aspart [NovoLOG MIX 70-30 VIAL] 28 unit SQ AC-SUPPER vial Insuln Asp Prt/Insulin Aspart [NovoLOG MIX 70-30 VIAL] 33 unit SQ AC-BRKFST vial Potassium Chloride ER [K-Dur 10] 10 meq PO DAILY Discontinued Multivitamins, Thera [Multivitamin (formulary)] 1 each PO DAILY@1200 #30 tab Clymer-3 Fatty Acids/Fish Oil [Fish Oil 1,000 mg Softgel] 1,000 mg PO DAILY Atorvastatin [Lipitor] 40 mg PO DAILY Rivaroxaban [Xarelto] 15 mg PO W/SUPPER tab Discharge Medication List Clopidogrel Bisulfate [Clopidogrel] 75 mg PO DAILY 03/03/14 [History] Furosemide 40 mg PO BID 03/03/14 [History] Lisinopril 20 mg PO BID 03/03/14 [History] amLODIPine 5 mg PO BID 03/03/14 [History] INSULIN LISPRO (humaLOG) [humaLOG] 0 units SQ ACHS 09/13/18 [History] Metoprolol Tartrate [Lopressor] 100 mg PO DAILY 09/13/18 [History] Docusate [Colace] 100 mg PO BID cap 09/21/18 [Rx] Insuln Asp Prt/Insulin Aspart [NovoLOG MIX 70-30 VIAL] 28 unit SQ AC-SUPPER vial 09/21/18 [Rx] Insuln Asp Prt/Insulin Aspart [NovoLOG MIX 70-30 VIAL] 33 unit SQ AC-BRKFST vial 09/21/18 [Rx] Ipratropium-Albuterol Nebulize [Duoneb 0.5 mg-3 mg/3 ml Soln] 3 ml INHALATION RT-QID ampul.neb 09/21/18 [Rx] Tamsulosin [Flomax] 0.4 mg PO DAILY cap.er.24h 09/21/18 [Rx] Potassium Chloride ER [K-Dur 10] 10 meq PO DAILY 10/05/18 [History] Follow up Appointment(s)/Referral(s): Yosvany Mullins MD [STAFF PHYSICIAN] - 11/01/18 3:45 pm Golden Fuchs DO [Primary Care Provider] - 1-2 days [facility], [NON-STAFF] - Discharge Disposition: HOME WITH HOSPICE
[2018-10-09 13:52] LABS: Glucose,Whole Blood 239 mg/dL (75-99)
[2018-10-09 14:00] VITALS: BMI 38.5
[2018-10-09] MEDS ORDERED: LORazepam 1 MG TAB PO STA (15:35)
--- NOTE | 2018-10-09 16:25 | P.PN ---
Subjective Progress Note Date: 10/09/18 Principal diagnosis: Acute on chronic diastolic congestive heart failure The patient is seen today in 2017 in follow-up on the regular medical floor. He is currently awake and alert in no acute distress. He did have some trouble with increasing shortness of breath last evening. He was placed on a Ventimask temporally. Currentlyintake O2 saturations in the 90s on 3 L/m per nasal cannula. He remains on DuoNeb inhalations Levaquin. He is continued on Lasix 40 mg IV every 8 hours. On 10/08/2018 patient seen in follow-up on medical surgical floor. He is seen resting in bed, in no acute distress, apparently his oxygenation got worse in the night, he was little more short of breath, he was placed on BiPAP, which he remains with pressures of 12 and 5, and FiO2 of 50%, blood gases were obtained this morning, and showed a pO2 of 62, pCO2 of 65, and pH of 7.40, consistent with chronic hypercapnic and hypoxemic respiratory failure, compensated. Patient can wear the BiPAP support as needed for shortness of breath. No fever or chills. Remains on empiric antibiotics in the form of oral Levaquin, he is on oral anticoagulation for history of atrial fibrillation. He is on IV Lasix at 60 mg every 6 hours. Nephrology service is following, today's labs have been reviewed, his labs reveal stable renal profile, with the BUN of 31 and creatinine of 1.49. Blood cultures showed no growth. Pro-calcitonin level was low at 0.08. No complaints of chest pain, lung sounds are positive for diminished breath sounds at the bases. On 10/09/2018 patient seen in follow-up on medical surgical floor. Awake and alert, patient is short of breath with any latest activity, and at rest, his been alternating between BiPAP, and 5 L high flow. Patient remains on IV diuretics, and 80 mg every 12 hours, patient is on breathing treatments, she is in negative fluid balance. Patient has decided to go home with hospice, and transfer arrangements are being completed today. Objective - Vital Signs Vital signs: Vital Signs Temp 98.6 F 10/09/18 06:54 Pulse 68 10/09/18 07:06 Resp 17 10/09/18 06:54 BP 158/79 10/09/18 06:54 Pulse Ox 90 L 10/09/18 06:54 Intake & Output 10/08/18 10/09/18 10/09/18 18:59 06:59 18:59 Intake Total 472 487 Output Total 1100 200 Balance 472 -1100 287 Weight 129 kg 129 kg Intake: Oral 472 487 Output: Urine 1100 200 Other: Voiding Method Urinal Urinal Urinal - Exam GENERAL EXAM: Alert, pleasant, 82-year-old white male, 5 L of oxygen, the pulse ox of 89-90% comfortable in no apparent distress. HEAD: Normocephalic/atraumatic. EYES: Normal reaction of pupils, equal size. Conjunctiva pink, sclera white. NOSE: Clear with pink turbinates. THROAT: No erythema or exudates. NECK: No masses, no JVD, no thyroid enlargement, no adenopathy. CHEST: No chest wall deformity. Symmetrical expansion. LUNGS: Equal air entry with breath sounds at the bases CVS: Irregular rate and rhythm, normal S1 and S2, no gallops, no murmurs, no rubs ABDOMEN: Soft, nontender. No hepatosplenomegaly, normal bowel sounds, no guarding or rigidity. EXTREMITIES: No clubbing, no edema, no cyanosis, 2+ pulses and upper and lower extremities. Right-sided hemiparesis MUSCULOSKELETAL: Muscle strength and tone normal. SPINE: No scoliosis or deformity SKIN: No rashes CENTRAL NERVOUS SYSTEM: Alert and oriented -3. Right-sided hemiparesis, right arm is weak, and patient has some swelling in the right arm PSYCHIATRIC: Alert and oriented -3. Appropriate affect. Intact judgment and insight. - Labs CBC & Chem 7: 10/05/18 23:24 10/09/18 06:46 Labs: Abnormal Lab Results - Last 24 Hours (Table) 10/08/18 10/08/18 10/08/18 Range/Units 13:30 16:56 20:07 Chloride (98-107) mmol/L Carbon Dioxide (22-30) mmol/L BUN (9-20) mg/dL Creatinine (0.66-1.25) mg/dL Glucose (74-99) mg/dL POC Glucose (mg/dL) 181 H 172 H (75-99) mg/dL AST (17-59) U/L Total Protein (6.3-8.2) g/dL Albumin (3.5-5.0) g/dL Ur Random Microalbumin 74.7 H (0.0-1.9) mg/dL Microalb/Creat Ratio 914 H (0-30) mg/g Creat 10/09/18 10/09/18 10/09/18 Range/Units 06:46 06:52 11:51 Chloride 94 L (98-107) mmol/L Carbon Dioxide 36 H (22-30) mmol/L BUN 36 H (9-20) mg/dL Creatinine 1.51 H (0.66-1.25) mg/dL Glucose 179 H (74-99) mg/dL POC Glucose (mg/dL) 188 H 210 H (75-99) mg/dL AST 15 L (17-59) U/L Total Protein 5.6 L (6.3-8.2) g/dL Albumin 3.1 L (3.5-5.0) g/dL Ur Random Microalbumin (0.0-1.9) mg/dL Microalb/Creat Ratio (0-30) mg/g Creat 10/09/18 Range/Units 13:40 Chloride (98-107) mmol/L Carbon Dioxide (22-30) mmol/L BUN (9-20) mg/dL Creatinine (0.66-1.25) mg/dL Glucose (74-99) mg/dL POC Glucose (mg/dL) 239 H (75-99) mg/dL AST (17-59) U/L Total Protein (6.3-8.2) g/dL Albumin (3.5-5.0) g/dL Ur Random Microalbumin (0.0-1.9) mg/dL Microalb/Creat Ratio (0-30) mg/g Creat Microbiology - Last 24 Hours (Table) 10/06/18 01:33 Blood Culture - Preliminary Blood No Growth after 72 hours Assessment and Plan Plan: Assessment: #1 Acute on chronic diastolic congestive heart failure. #2 Acute hypoxemic respiratory failure secondary to above. #3 Acute on chronic hypercapnic respiratory failure secondary to underlying sleep apnea and/or pickwickian syndrome. #4 Minimal obstructive lung disease from remote history of chronic tobacco dependence. #5 Morbid obesity. #6 Diabetes mellitus. #7 Hypertension. #8 Hyperlipidemia. #9 Previous CVA with right-sided weakness. #10 History of myocardial infarction. Plan: Patient is being transferred home with hospice, and transfer arrangements are in progress. Patient and the family decided against BiPAP support, as patient does not tolerate BiPAP well. I performed a history & physical examination of the patient and discussed their management with my nurse practitioner, Jeanette Carter. I reviewed the nurse practitioner's note and agree with the documented findings and plan of care. Lung sounds are positive for diminished breath sounds. The findings and the impression was discussed with the patient. I attest to the documentation by the nurse practitioner. Time with Patient: Less than 30
[2018-10-09 17:01] LABS: Glucose,Whole Blood 144 mg/dL (75-99)
[2018-10-09] MEDS: RIVAROXABAN 15 MG TAB PO SCH (17:41)
[2018-10-09] MEDS ORDERED: FUROSEMIDE 10 MG/ML 10 ML VIAL IV SCH (21:00)
== END 2018-10-09 18:31 | disposition hospice, home (50) | DRG 291 ==
LOC: EC 22:31 → 4SSUR 10-06 01:04
PROVIDERS: ADMIT Family Medicine; ATTEND Family Medicine
PROC: 5A09457 Assistance with Respiratory Ventilation, 24-96 Consecutive Hours, Continuous Positive Airway Pressure (ICD-10-PCS; principal; 2018-10-07)
DX: I13.0 Hypertensive heart and chronic kidney disease with heart failure and stage 1 through stage 4 chronic kidney disease, or unspecified chronic kidney disease (principal); I50.33 Acute on chronic diastolic (congestive) heart failure; J96.22 Acute and chronic respiratory failure with hypercapnia; J96.21 Acute and chronic respiratory failure with hypoxia; J18.1 Lobar pneumonia, unspecified organism; N17.9 Acute kidney failure, unspecified; I69.351 Hemiplegia and hemiparesis following cerebral infarction affecting right dominant side; I48.1 Persistent atrial fibrillation; E87.3 Alkalosis; Z66 Do not resuscitate; Z51.5 Encounter for palliative care; E11.22 Type 2 diabetes mellitus with diabetic chronic kidney disease; R06.81 Apnea, not elsewhere classified; E66.01 Morbid (severe) obesity due to excess calories; I27.20 Pulmonary hypertension, unspecified; I08.3 Combined rheumatic disorders of mitral, aortic and tricuspid valves; J98.6 Disorders of diaphragm; I69.398 Other sequelae of cerebral infarction; I45.10 Unspecified right bundle-branch block; N18.3 Chronic kidney disease, stage 3 (moderate); G47.30 Sleep apnea, unspecified; I25.10 Atherosclerotic heart disease of native coronary artery without angina pectoris; R40.2362 Coma scale, best motor response, obeys commands, at arrival to emergency department; R40.2142 Coma scale, eyes open, spontaneous, at arrival to emergency department; R40.2252 Coma scale, best verbal response, oriented, at arrival to emergency department; E78.5 Hyperlipidemia, unspecified; F41.9 Anxiety disorder, unspecified; H35.30 Unspecified macular degeneration; I25.2 Old myocardial infarction; Z68.38 Body mass index [BMI] 38.0-38.9, adult; Z79.02 Long term (current) use of antithrombotics/antiplatelets; Z79.4 Long term (current) use of insulin; Z79.01 Long term (current) use of anticoagulants; Z79.899 Other long term (current) drug therapy; Z71.3 Dietary counseling and surveillance; Z88.2 Allergy status to sulfonamides; Z95.1 Presence of aortocoronary bypass graft; Z87.891 Personal history of nicotine dependence; Z80.41 Family history of malignant neoplasm of ovary
CPT/HCPCS: 36415; 36600; 71045; 80048; 80053; 81001; 82043; 82570; 82805; 83605; 83735; 83880; 84145; 84156; 84484; 85025; 85379; 85610; 85730; 87040; 93005; 94640; 94660; 94760; 99285